=== PATIENT | male | born 1965 | race Caucasian/White ===

== ENCOUNTER 2018-06-12 16:15 | Emergency (ER) | payer OTHER ==
[~2018-06-12] VITALS: Ht 175.3 cm; Wt 90.7 kg
[~2018-06-12 16:15] MED LIST: Aspirin EC81 MG PO; CARV25 PO; CITA20 PO; CYCL10 PO; DILT120ERA PO; DILT240 PO; HYDACE10B PO; HYDCHL12.5 PO; INSULANPEN SC; Keflex500 MG PO; METF500C PO; Norco 5-325 Ta1 EACH PO; PIOG45 PO; SIMV40 PO; TELM40 PO
[2018-06-12 17:11] LABS: BASOPHILS ABSOLUTE AUTO 0.06 K/mm3 (0.00-0.23); BASOPHILS PERCENT AUTO 1 % (0-2); EOSINOPHILS ABSOLUTE AUTO 3.69 K/mm3 (0.00-0.68); EOSINOPHILS PERCENT AUTO 35 % (0-6); Hematocrit 35.1 % (37.0-53.0); Hemoglobin 10.9 g/dL (13.5-17.5); IMMATURE GRAN ABSOLUTE AUTO 0.02 K/mm3 (0.00-0.10); IMMATURE GRAN PERCENT AUTO 0 % (0-1); LYMPHOCYTES ABSOLUTE AUTO 1.43 K/mm3 (0.84-5.20); LYMPHOCYTES PERCENT AUTO 14 % (21-46); MONOCYTES ABSOLUTE AUTO 0.34 K/mm3 (0.16-1.47); MONOCYTES PERCENT AUTO 3 % (4-13); Mean Corpuscular HGB 28.5 pg (26.0-34.0); Mean Corpuscular HGB Conc 31.1 g/dL (31.5-36.5); Mean Corpuscular Volume 92 fL (80-100); Mean Platelet Volume 10.1 fL (9.1-12.4); NEUTROPHILS ABSOLUTE AUTO 4.96 K/mm3 (1.96-9.15); NEUTROPHILS PERCENT AUTO 47 % (41-73); Platelet Count 200 K/mm3 (150-400); RDW Coefficient Variation 13.9 % (11.7-14.2); Red Blood Cell Count 3.83 M/mm3 (4.30-5.90)
[2018-06-12 17:13] LABS: Alanine Aminotransfer (ALT/SGP 15 U/L (12-78); Albumin, Blood 2.9 g/dL (3.4-5.0); Albumin/Globulin Ratio 0.6 (0.8-1.8); Alk Phos 134 U/L (50-136); Anion Gap 6 mmol/L (6-16); Aspartate Aminotrans (AST/SGOT 14 U/L (12-37); Bilirubin, Total 0.2 mg/dL (0.1-1.0); Blood Urea Nitrogen 24 mg/dL (8-24); CO2, Blood 23 mmol/L (21-32); Calcium, Blood 8.5 mg/dL (8.5-10.1); Chloride, Blood 113 mmol/L (98-108); Creatinine, Blood 1.26 mg/dL (0.60-1.20); Globulin, Blood 4.6 g/dL (2.2-4.0); Glomerular Filtration Rate >60 (60-); Glucose, Blood 172 mg/dL (70-99); Potassium, Blood 4.3 mmol/L (3.5-5.5); Sodium, Blood 142 mmol/L (136-145); Total Protein, Blood 7.5 g/dL (6.4-8.2)
[2018-06-12] MEDS ORDERED: FERSU90EL PO (18:57)
[2018-06-12] MEDS ORDERED: ESCI10 PO (18:58)
[2018-06-12] MEDS ORDERED: ASPI325 PO (18:58)
[2018-06-12] MEDS ORDERED: LISI5 PO (18:59)
[2018-06-12] MEDS ORDERED: GLIM2 PO (19:00)
[2018-06-12] MEDS ORDERED: PROP10 PO (19:01)
== END 2018-06-12 21:25 | disposition home or self-care (01) ==
LOC: ER 16:15
PROVIDERS: Physician Assistant
DX: E86.0 Dehydration (principal); R19.7 Diarrhea, unspecified; Z88.6 Allergy status to analgesic agent; Z79.899 Other long term (current) drug therapy; Z79.4 Long term (current) use of insulin; Z79.82 Long term (current) use of aspirin; E11.9 Type 2 diabetes mellitus without complications; I10 Essential (primary) hypertension; E78.5 Hyperlipidemia, unspecified; Z85.3 Personal history of malignant neoplasm of breast
CPT/HCPCS: 80053; 85025; 96360; 99284-25; J7030

== ENCOUNTER 2018-07-17 12:30 | Day surgery (SDC) | payer OTHER ==
[~2018-07-17 12:30] MED LIST changes: +ASPI325 PO; +ESCI10 PO; +FERSU90EL PO; +GLIM2 PO; +LISI5 PO; +PROP10 PO
[2018-08-05] MEDS ORDERED: DILT120 PO (12:16)
[2018-08-05] MEDS ORDERED: PROBIOTIC1 EAC1 PO (12:17)
[2018-08-05] MEDS ORDERED: LISI5 PO (12:17)
[2018-08-05] MEDS ORDERED: Inderal 20 mg T20 MG PO (12:17)
[2018-08-05] MEDS ORDERED: Amaryl1 MG PO (12:18)
[2018-08-05] MEDS ORDERED: CENTRUM SILVER1 EAC4 PO (12:18)
[2018-08-05] MEDS ORDERED: ESCI10 PO (12:18)
[2018-08-05] MEDS ORDERED: Aspir 8181 MG PO (12:18)
[2018-08-05] MEDS ORDERED: METF500C PO (12:18)
== END 2018-07-17 22:51 | disposition home or self-care (01) ==
LOC: WOUND 12:30
DX: L97.812 Non-pressure chronic ulcer of other part of right lower leg with fat layer exposed (principal); L97.818 Non-pressure chronic ulcer of other part of right lower leg with other specified severity; L97.521 Non-pressure chronic ulcer of other part of left foot limited to breakdown of skin; E11.319 Type 2 diabetes mellitus with unspecified diabetic retinopathy without macular edema; I10 Essential (primary) hypertension; Z89.422 Acquired absence of other left toe(s); Z88.6 Allergy status to analgesic agent; Z79.84 Long term (current) use of oral hypoglycemic drugs

== ENCOUNTER 2018-07-25 10:30 | Day surgery (SDC) | payer OTHER ==
[2018-08-05] MEDS ORDERED: DILT120 PO (12:16)
[2018-08-05] MEDS ORDERED: Inderal 20 mg T20 MG PO (12:17)
[2018-08-05] MEDS ORDERED: LISI5 PO (12:17)
[2018-08-05] MEDS ORDERED: PROBIOTIC1 EAC1 PO (12:17)
[2018-08-05] MEDS ORDERED: Amaryl1 MG PO (12:18)
[2018-08-05] MEDS ORDERED: ESCI10 PO (12:18)
[2018-08-05] MEDS ORDERED: CENTRUM SILVER1 EAC4 PO (12:18)
[2018-08-05] MEDS ORDERED: Aspir 8181 MG PO (12:18)
[2018-08-05] MEDS ORDERED: METF500C PO (12:18)
== END 2018-07-25 23:03 | disposition home or self-care (01) ==
LOC: WOUND 10:30
DX: E11.621 Type 2 diabetes mellitus with foot ulcer (principal); E11.622 Type 2 diabetes mellitus with other skin ulcer; L97.521 Non-pressure chronic ulcer of other part of left foot limited to breakdown of skin; L97.818 Non-pressure chronic ulcer of other part of right lower leg with other specified severity; L97.811 Non-pressure chronic ulcer of other part of right lower leg limited to breakdown of skin; L84 Corns and callosities; E11.21 Type 2 diabetes mellitus with diabetic nephropathy; E11.319 Type 2 diabetes mellitus with unspecified diabetic retinopathy without macular edema; I10 Essential (primary) hypertension; Z89.422 Acquired absence of other left toe(s)
CPT/HCPCS: G0463

== ENCOUNTER 2018-08-01 00:33 | Day surgery (SDC) | payer OTHER ==
[2018-08-05] MEDS ORDERED: DILT120 PO (12:16)
[2018-08-05] MEDS ORDERED: LISI5 PO (12:17)
[2018-08-05] MEDS ORDERED: Inderal 20 mg T20 MG PO (12:17)
[2018-08-05] MEDS ORDERED: PROBIOTIC1 EAC1 PO (12:17)
[2018-08-05] MEDS ORDERED: Amaryl1 MG PO (12:18)
[2018-08-05] MEDS ORDERED: Aspir 8181 MG PO (12:18)
[2018-08-05] MEDS ORDERED: CENTRUM SILVER1 EAC4 PO (12:18)
[2018-08-05] MEDS ORDERED: ESCI10 PO (12:18)
[2018-08-05] MEDS ORDERED: METF500C PO (12:18)
== END 2018-08-01 22:46 | disposition home or self-care (01) ==
LOC: WOUND 00:33
DX: L97.811 Non-pressure chronic ulcer of other part of right lower leg limited to breakdown of skin (principal); L97.521 Non-pressure chronic ulcer of other part of left foot limited to breakdown of skin; L97.818 Non-pressure chronic ulcer of other part of right lower leg with other specified severity; E11.21 Type 2 diabetes mellitus with diabetic nephropathy; Z79.84 Long term (current) use of oral hypoglycemic drugs

== ENCOUNTER → 2018-08-02 | Outpatient (CLI) | payer OTHER ==
[~2018-08-02] MED LIST changes: +Amaryl1 MG PO; +Aspir 8181 MG PO; +CENTRUM SILVER1 EAC4 PO; +DILT120 PO; +Inderal 20 mg T20 MG PO; +PROBIOTIC1 EAC1 PO
== END | disposition home or self-care (01) ==
LOC: PLD 11:05 → LAB SHORT 11:05
DX: L60.2 Onychogryphosis (principal); B35.1 Tinea unguium
CPT/HCPCS: 88305; 88312

== ENCOUNTER 2018-08-07 07:59 | Day surgery (SDC) | payer OTHER | END 2018-08-07 22:45 | disposition home or self-care (01) | LOC: WOUND 07:59 | DX: L97.812 Non-pressure chronic ulcer of other part of right lower leg with fat layer exposed (principal); E11.21 Type 2 diabetes mellitus with diabetic nephropathy; I10 Essential (primary) hypertension; Z89.422 Acquired absence of other left toe(s); Z79.84 Long term (current) use of oral hypoglycemic drugs ==

== ENCOUNTER 2018-08-16 11:05 | Day surgery (SDC) | payer OTHER | END 2018-08-16 12:00 | disposition home or self-care (01) | LOC: WOUND 11:05 | DX: L97.818 Non-pressure chronic ulcer of other part of right lower leg with other specified severity (principal); E11.21 Type 2 diabetes mellitus with diabetic nephropathy; D50.9 Iron deficiency anemia, unspecified; F41.8 Other specified anxiety disorders; I10 Essential (primary) hypertension; Z89.422 Acquired absence of other left toe(s); Z79.82 Long term (current) use of aspirin; Z79.84 Long term (current) use of oral hypoglycemic drugs | CPT/HCPCS: G0463 ==

== ENCOUNTER 2018-09-06 00:14 | Day surgery (SDC) | payer OTHER | END 2018-09-06 12:00 | disposition home or self-care (01) | LOC: WOUND 00:14 | DX: E11.622 Type 2 diabetes mellitus with other skin ulcer (principal); L97.812 Non-pressure chronic ulcer of other part of right lower leg with fat layer exposed; E11.319 Type 2 diabetes mellitus with unspecified diabetic retinopathy without macular edema; E11.21 Type 2 diabetes mellitus with diabetic nephropathy; I73.9 Peripheral vascular disease, unspecified; I10 Essential (primary) hypertension; D50.9 Iron deficiency anemia, unspecified; F32.9 Major depressive disorder, single episode, unspecified; F41.9 Anxiety disorder, unspecified | CPT/HCPCS: G0463 ==

== ENCOUNTER 2018-10-16 10:49 | Day surgery (SDC) | payer OTHER | END 2018-10-16 22:44 | disposition home or self-care (01) | LOC: WOUND 10:49 | DX: E11.622 Type 2 diabetes mellitus with other skin ulcer (principal); L97.818 Non-pressure chronic ulcer of other part of right lower leg with other specified severity; E11.21 Type 2 diabetes mellitus with diabetic nephropathy; E11.51 Type 2 diabetes mellitus with diabetic peripheral angiopathy without gangrene; I10 Essential (primary) hypertension; D50.9 Iron deficiency anemia, unspecified; F32.9 Major depressive disorder, single episode, unspecified; F41.9 Anxiety disorder, unspecified | CPT/HCPCS: G0463 ==

== ENCOUNTER 2018-10-25 00:36 | Observation (INO) | payer OTHER ==
[~2018-10-25] VITALS: Ht 175.3 cm; Wt 95.2 kg
[2018-10-25] MEDS ORDERED: ZOLP5 (00:54)
[2018-10-25] MEDS ORDERED: Lexapro 2020 MG PO (05:19)
== END 2018-10-25 05:42 | disposition home or self-care (01) ==
LOC: ER 00:36 → EOR 00:37
PROVIDERS: ADMIT Emergency Medicine
DX: F32.9 Major depressive disorder, single episode, unspecified (principal); F43.21 Adjustment disorder with depressed mood; E11.9 Type 2 diabetes mellitus without complications; I10 Essential (primary) hypertension; E78.00 Pure hypercholesterolemia, unspecified; F41.9 Anxiety disorder, unspecified; Z88.6 Allergy status to analgesic agent; Z79.899 Other long term (current) drug therapy; Z79.84 Long term (current) use of oral hypoglycemic drugs; Z79.82 Long term (current) use of aspirin
CPT/HCPCS: 99285; G0378; Q3014

== ENCOUNTER 2018-12-03 11:10 | Emergency (ER) | payer OTHER ==
[~2018-12-03] VITALS: Ht 175.3 cm; Wt 113.4 kg
[~2018-12-03 11:10] MED LIST changes: -DILT120 PO; +Diltiazem HCl120 MG PO; +Lexapro 2020 MG PO; +ZOLP5
[2018-12-03] MEDS ORDERED: METF500C PO (11:37)
[2018-12-03 12:31] LABS: BASOPHILS ABSOLUTE AUTO 0.04 K/mm3 (0.00-0.23); BASOPHILS PERCENT AUTO 1 % (0-2); EOSINOPHILS ABSOLUTE AUTO 1.24 K/mm3 (0.00-0.68); EOSINOPHILS PERCENT AUTO 17 % (0-6); Hematocrit 31.5 % (37.0-53.0); Hemoglobin 9.6 g/dL (13.5-17.5); IMMATURE GRAN ABSOLUTE AUTO 0.05 K/mm3 (0.00-0.10); IMMATURE GRAN PERCENT AUTO 1 % (0-1); LYMPHOCYTES ABSOLUTE AUTO 0.73 K/mm3 (0.84-5.20); LYMPHOCYTES PERCENT AUTO 10 % (21-46); MONOCYTES PERCENT AUTO 5 % (4-13); Mean Corpuscular HGB 28.6 pg (26.0-34.0); Mean Corpuscular HGB Conc 30.5 g/dL (31.5-36.5); Mean Corpuscular Volume 94 fL (80-100); Mean Platelet Volume 10.2 fL (9.1-12.4); NEUTROPHILS ABSOLUTE AUTO 5.03 K/mm3 (1.96-9.15); NEUTROPHILS PERCENT AUTO 67 % (41-73); Platelet Count 164 K/mm3 (150-400); RDW Coefficient Variation 13.8 % (11.7-14.2); Red Blood Cell Count 3.36 M/mm3 (4.30-5.90); White Blood Cell Count 7.49 K/mm3 (4.00-11.30)
[2018-12-03 12:56] LABS: Alanine Aminotransfer (ALT/SGP 15 U/L (12-78); Albumin, Blood 2.5 g/dL (3.4-5.0); Albumin/Globulin Ratio 0.6 (0.8-1.8); Alk Phos 117 U/L (50-136); Anion Gap 5 mmol/L (6-16); Aspartate Aminotrans (AST/SGOT 13 U/L (12-37); Bilirubin, Total 0.3 mg/dL (0.1-1.0); Blood Urea Nitrogen 15 mg/dL (8-24); Bun/Creatinine Ratio 11.5 (12.0-20.0); CO2, Blood 28 mmol/L (21-32); Chloride, Blood 112 mmol/L (98-108); Creatinine, Blood 1.31 mg/dL (0.60-1.20); Glomerular Filtration Rate >60 (60-); Glucose, Blood 92 mg/dL (70-99); Potassium, Blood 3.7 mmol/L (3.5-5.5); Sodium, Blood 145 mmol/L (136-145); Total Protein, Blood 6.5 g/dL (6.4-8.2); Troponin I <0.015 ng/mL (0.000-0.040)
[2019-03-07] MEDS ORDERED: OMEPRAZOLE20 MG PO (17:23)
[2019-03-07] MEDS ORDERED: ZOLP10 PO (17:24)
== END 2018-12-03 14:26 | disposition home or self-care (01) ==
LOC: ER 11:10
PROVIDERS: Emergency Medicine
DX: R60.0 Localized edema (principal); E11.9 Type 2 diabetes mellitus without complications; I10 Essential (primary) hypertension; E78.00 Pure hypercholesterolemia, unspecified; F32.9 Major depressive disorder, single episode, unspecified; F41.9 Anxiety disorder, unspecified; Z85.3 Personal history of malignant neoplasm of breast; Z88.6 Allergy status to analgesic agent; Z79.82 Long term (current) use of aspirin; Z79.84 Long term (current) use of oral hypoglycemic drugs; Z79.899 Other long term (current) drug therapy
CPT/HCPCS: 36415; 71046; 80053; 83880; 84484; 85025; 96374; 99284-25

== ENCOUNTER 2018-12-05 11:14 | Emergency (ER) | payer OTHER ==
[~2018-12-05] VITALS: Ht 177.8 cm; Wt 108.9 kg
[2018-12-05 12:01] LABS: BASOPHILS ABSOLUTE AUTO 0.04 K/mm3 (0.00-0.23); BASOPHILS PERCENT AUTO 0 % (0-2); EOSINOPHILS ABSOLUTE AUTO 0.26 K/mm3 (0.00-0.68); EOSINOPHILS PERCENT AUTO 2 % (0-6); Hematocrit 32.7 % (37.0-53.0); IMMATURE GRAN PERCENT AUTO 1 % (0-1); LYMPHOCYTES PERCENT AUTO 5 % (21-46); MONOCYTES ABSOLUTE AUTO 0.64 K/mm3 (0.16-1.47); MONOCYTES PERCENT AUTO 5 % (4-13); Mean Corpuscular HGB 28.6 pg (26.0-34.0); Mean Corpuscular HGB Conc 30.6 g/dL (31.5-36.5); Mean Corpuscular Volume 93 fL (80-100); Mean Platelet Volume 11.1 fL (9.1-12.4); NEUTROPHILS ABSOLUTE AUTO 11.31 K/mm3 (1.96-9.15); NEUTROPHILS PERCENT AUTO 87 % (41-73); Platelet Count 149 K/mm3 (150-400); RDW Coefficient Variation 13.8 % (11.7-14.2); RDW Standard Deviation 46.5 fL (35.1-46.3); White Blood Cell Count 13.05 K/mm3 (4.00-11.30)
[2018-12-05 12:21] LABS: Alanine Aminotransfer (ALT/SGP 14 U/L (12-78); Albumin, Blood 2.6 g/dL (3.4-5.0); Albumin/Globulin Ratio 0.5 (0.8-1.8); Alk Phos 126 U/L (50-136); Anion Gap 6 mmol/L (6-16); Aspartate Aminotrans (AST/SGOT 10 U/L (12-37); Bilirubin, Total 0.9 mg/dL (0.1-1.0); Blood Urea Nitrogen 16 mg/dL (8-24); Bun/Creatinine Ratio 12.8 (12.0-20.0); CO2, Blood 29 mmol/L (21-32); Calcium, Blood 8.4 mg/dL (8.5-10.1); Chloride, Blood 104 mmol/L (98-108); Creatinine, Blood 1.25 mg/dL (0.60-1.20); Globulin, Blood 4.8 g/dL (2.2-4.0); Glomerular Filtration Rate >60 (60-); Glucose, Blood 158 mg/dL (70-99); Potassium, Blood 3.8 mmol/L (3.5-5.5); Sodium, Blood 139 mmol/L (136-145); Total Protein, Blood 7.4 g/dL (6.4-8.2)
[2018-12-05 13:42] LABS: Source, Urine Voided
[2018-12-05 13:45] LABS: Appearance, Urine Clear (Clear); Bilirubin, Urine Neg (Neg); Blood, Urine 4+ (Neg); Color, Urine Yellow (P-Yellow); Glucose Qualitative, Urine 1+ (Neg); Ketones, Urine 1+ (Neg); Leukocyte Esterase, Urine Neg (Neg); Nitrite, Urine Neg (Neg); Protein, Urine 3+ (Neg); Urobilinogen, Urine 1+ (Normal); pH, Urine 6.5 (5.0-8.0)
[2018-12-05 14:05] LABS: Bacteria Not Seen /hpf; Squamous Epithelial Cells Not Seen /hpf (Few); White Blood Cells, Urine 0-2 /hpf (0-5)
[2019-03-07] MEDS ORDERED: OMEPRAZOLE20 MG PO (17:23)
[2019-03-07] MEDS ORDERED: ZOLP10 PO (17:24)
== END 2018-12-05 16:52 | disposition home or self-care (01) ==
LOC: ER 11:14
PROVIDERS: Emergency Medicine
DX: R53.1 Weakness (principal); E11.9 Type 2 diabetes mellitus without complications; I10 Essential (primary) hypertension; F41.9 Anxiety disorder, unspecified; F32.9 Major depressive disorder, single episode, unspecified; Z88.6 Allergy status to analgesic agent; Z79.84 Long term (current) use of oral hypoglycemic drugs; Z79.82 Long term (current) use of aspirin; Z79.899 Other long term (current) drug therapy
CPT/HCPCS: 36415; 71046; 71260; 80053; 81001; 84484; 85025; 85379; 93005; 93010; 96360-59; 96361; 99285-25; J7030; Q9967

== ENCOUNTER 2019-02-03 04:42 | Emergency (ER) | payer OTHER ==
[~2019-02-03] VITALS: Ht 177.8 cm; Wt 108.9 kg
[2019-02-03 05:19] LABS: BASOPHILS ABSOLUTE AUTO 0.03 K/mm3 (0.00-0.23); BASOPHILS PERCENT AUTO 0 % (0-2); EOSINOPHILS ABSOLUTE AUTO 1.34 K/mm3 (0.00-0.68); EOSINOPHILS PERCENT AUTO 17 % (0-6); Hematocrit 31.8 % (37.0-53.0); Hemoglobin 9.8 g/dL (13.5-17.5); IMMATURE GRAN ABSOLUTE AUTO 0.02 K/mm3 (0.00-0.10); IMMATURE GRAN PERCENT AUTO 0 % (0-1); LYMPHOCYTES ABSOLUTE AUTO 1.22 K/mm3 (0.84-5.20); LYMPHOCYTES PERCENT AUTO 15 % (21-46); MONOCYTES ABSOLUTE AUTO 0.45 K/mm3 (0.16-1.47); MONOCYTES PERCENT AUTO 6 % (4-13); Mean Corpuscular HGB 28.2 pg (26.0-34.0); Mean Corpuscular HGB Conc 30.8 g/dL (31.5-36.5); Mean Corpuscular Volume 92 fL (80-100); Mean Platelet Volume 10.4 fL (9.1-12.4); NEUTROPHILS ABSOLUTE AUTO 4.92 K/mm3 (1.96-9.15); NEUTROPHILS PERCENT AUTO 62 % (41-73); Platelet Count 169 K/mm3 (150-400); RDW Coefficient Variation 15.4 % (11.7-14.2); RDW Standard Deviation 51.3 fL (35.1-46.3); Red Blood Cell Count 3.47 M/mm3 (4.30-5.90); White Blood Cell Count 7.98 K/mm3 (4.00-11.30)
[2019-02-03 05:37] LABS: Magnesium, Blood 2.2 mg/dL (1.6-2.4)
[2019-02-03 05:38] LABS: Alanine Aminotransfer (ALT/SGP 14 U/L (12-78); Albumin, Blood 3.1 g/dL (3.4-5.0); Albumin/Globulin Ratio 0.7 (0.8-1.8); Alk Phos 132 U/L (50-136); Anion Gap 7 mmol/L (6-16); Aspartate Aminotrans (AST/SGOT 20 U/L (12-37); Bilirubin, Total 0.3 mg/dL (0.1-1.0); Blood Urea Nitrogen 16 mg/dL (8-24); Bun/Creatinine Ratio 12.7 (12.0-20.0); CO2, Blood 28 mmol/L (21-32); Calcium, Blood 8.6 mg/dL (8.5-10.1); Chloride, Blood 107 mmol/L (98-108); Creatinine, Blood 1.26 mg/dL (0.60-1.20); Globulin, Blood 4.6 g/dL (2.2-4.0); Glomerular Filtration Rate >60 (60-); Glucose, Blood 85 mg/dL (70-99); Potassium, Blood 3.9 mmol/L (3.5-5.5); Sodium, Blood 142 mmol/L (136-145); Total Protein, Blood 7.7 g/dL (6.4-8.2)
[2019-02-03] MEDS ORDERED: Norco 10-325 T1 EACH PO (08:02)
[2019-03-07] MEDS ORDERED: OMEPRAZOLE20 MG PO (17:23)
[2019-03-07] MEDS ORDERED: ZOLP10 PO (17:24)
== END 2019-02-03 08:33 | disposition home or self-care (01) ==
LOC: ER 04:42
PROVIDERS: Emergency Medicine
DX: R60.0 Localized edema (principal); G89.29 Other chronic pain; Z88.6 Allergy status to analgesic agent; Z79.899 Other long term (current) drug therapy; Z79.84 Long term (current) use of oral hypoglycemic drugs; Z79.82 Long term (current) use of aspirin; E11.40 Type 2 diabetes mellitus with diabetic neuropathy, unspecified; I10 Essential (primary) hypertension; Z85.3 Personal history of malignant neoplasm of breast; F32.9 Major depressive disorder, single episode, unspecified; F41.9 Anxiety disorder, unspecified
CPT/HCPCS: 36415; 80053; 83735; 83880; 85025; 85379; 93970; 96374; 99284-25

== ENCOUNTER → 2019-02-05 | Outpatient (CLI) | payer OTHER ==
[~2019-02-05] MED LIST changes: +ATOR40TA PO; +BASAGLAR K100 UNIT/1 SC; +CEFU500T30 PO; +FERSU300 PO; +FUROSEMIDE20 MG PO; +HUMALOG KW200 UNIT/1 SC; +METO50ER PO; +Norco 10-325 T1 EACH PO; +OMEPRAZOLE20 MG PO; +POTA10T PO; +TRIDERM28.4 GM TOP; +ZOLP10 PO
[2019-02-05 14:38] LABS: Bacteria Rare /hpf; Red Blood Cells, Urine 0-2 /hpf (0-2); Renal Epithelial Mod /hpf (0-Rare); Squamous Epithelial Cells Not Seen /hpf (Few); Transitional Epithelial Cells Rare /hpf (0-Rare); White Blood Cells, Urine 0-2 /hpf (0-5)
== END ==
LOC: LAB EV 11:30
PROVIDERS: Physician Assistant
DX: R31.9 Hematuria, unspecified (principal)
CPT/HCPCS: 81015

== ENCOUNTER 2019-03-10 06:53 | Day surgery (SDC) | payer OTHER ==
[~2019-03-10] VITALS: Ht 175.3 cm; Wt 240.0 kg
[~2019-03-10 06:53] MED LIST changes: -ATOR40TA PO; -BASAGLAR K100 UNIT/1 SC; -CEFU500T30 PO; -FERSU300 PO; -FUROSEMIDE20 MG PO; -HUMALOG KW200 UNIT/1 SC; -METO50ER PO; -POTA10T PO; -TRIDERM28.4 GM TOP
== END 2019-03-10 13:30 | disposition home or self-care (01) ==
LOC: MHTC 06:53
DX: I70.248 Atherosclerosis of native arteries of left leg with ulceration of other part of lower leg (principal); L97.829 Non-pressure chronic ulcer of other part of left lower leg with unspecified severity; I70.201 Unspecified atherosclerosis of native arteries of extremities, right leg; Z88.6 Allergy status to analgesic agent; Z79.899 Other long term (current) drug therapy; Z79.82 Long term (current) use of aspirin; Z79.84 Long term (current) use of oral hypoglycemic drugs
CPT/HCPCS: 37228; 37232; 75625; 75716; 75774; 82947; 85347; 99152; 99153; C1725; C1760; C1769; C1887; C1894; J1644; J2250; J3010; J7030; Q9967

== ENCOUNTER 2019-03-31 13:53 | Inpatient (IN) | payer OTHER ==
[~2019-03-31] VITALS: Ht 175.3 cm; Wt 109.0 kg
[2019-03-31 14:24] LABS: Base Excess Venous 3.1 mmol/L; Bicarbonate Venous 26.8 mmol/L (24.0-30.0); PCO2 Venous 45.5 mmHg (38-42); PO2 Venous 82.1 mmHg (38-42)
[2019-03-31] MEDS ORDERED: FUROSEMIDE20 MG PO (14:24)
[2019-03-31 14:50] LABS: BASOPHILS ABSOLUTE AUTO 0.04 K/mm3 (0.00-0.23); BASOPHILS PERCENT AUTO 0 % (0-2); EOSINOPHILS ABSOLUTE AUTO 0.61 K/mm3 (0.00-0.68); EOSINOPHILS PERCENT AUTO 5 % (0-6); Hematocrit 30.7 % (37.0-53.0); Hemoglobin 9.3 g/dL (13.5-17.5); IMMATURE GRAN ABSOLUTE AUTO 0.08 K/mm3 (0.00-0.10); IMMATURE GRAN PERCENT AUTO 1 % (0-1); LYMPHOCYTES ABSOLUTE AUTO 0.58 K/mm3 (0.84-5.20); LYMPHOCYTES PERCENT AUTO 4 % (21-46); MONOCYTES ABSOLUTE AUTO 0.61 K/mm3 (0.16-1.47); MONOCYTES PERCENT AUTO 5 % (4-13); Mean Corpuscular HGB 28.2 pg (26.0-34.0); Mean Corpuscular HGB Conc 30.3 g/dL (31.5-36.5); Mean Corpuscular Volume 93 fL (80-100); Mean Platelet Volume 11.1 fL (9.1-12.4); NEUTROPHILS ABSOLUTE AUTO 11.18 K/mm3 (1.96-9.15); NEUTROPHILS PERCENT AUTO 85 % (41-73); Platelet Count 175 K/mm3 (150-400); RDW Coefficient Variation 14.1 % (11.7-14.2); RDW Standard Deviation 47.7 fL (35.1-46.3)
[2019-03-31 15:02] LABS: Alanine Aminotransfer (ALT/SGP 15 U/L (12-78); Albumin, Blood 2.4 g/dL (3.4-5.0); Albumin/Globulin Ratio 0.5 (0.8-1.8); Alk Phos 120 U/L (50-136); Anion Gap 5 mmol/L (6-16); Aspartate Aminotrans (AST/SGOT 11 U/L (12-37); Bilirubin, Total 0.7 mg/dL (0.1-1.0); Blood Urea Nitrogen 14 mg/dL (8-24); Bun/Creatinine Ratio 10.3 (12.0-20.0); CO2, Blood 27 mmol/L (21-32); Calcium, Blood 8.2 mg/dL (8.5-10.1); Chloride, Blood 104 mmol/L (98-108); Creatinine, Blood 1.36 mg/dL (0.60-1.20); Ethanol (Alcohol), Blood, Med <3 mg/dL; Globulin, Blood 4.8 g/dL (2.2-4.0); Glomerular Filtration Rate 58 (60-); Glucose, Blood 341 mg/dL (70-99); Sodium, Blood 136 mmol/L (136-145); Total Protein, Blood 7.2 g/dL (6.4-8.2); Troponin I 0.115 ng/mL (0.000-0.040)
[2019-03-31] MEDS ORDERED: TRIDERM28.4 GM TOP (16:13)
[2019-03-31] MEDS ORDERED: ESCI10 PO (16:14)
[2019-03-31 17:46] LABS: Source, Urine Voided
[2019-03-31 17:56] LABS: Bilirubin, Urine Neg (Neg); Blood, Urine 2+ (Neg); Glucose Qualitative, Urine 4+ (Neg); Ketones, Urine Neg (Neg); Leukocyte Esterase, Urine Neg (Neg); Nitrite, Urine Neg (Neg); Protein, Urine 2+ (Neg); Urobilinogen, Urine NORM (Normal)
[2019-03-31 18:10] LABS: U Amphetamine Screen Not Detected; U Barbituate Screen Not Detected; U Benzodiazapine Screen Not Detected; U Buprenorphine Screen Not Detected; U Cannabinoids Screen Not Detected; U Cocaine Screen Not Detected; U Methadone Screen Not Detected; U Methamphetamine Screen Not Detected; U Opiates Screen Not Detected; U Oxycodone Screen Not Detected; U Phencyclidine Screen Not Detected; U Propoxyphene Screen Not Detected
[2019-03-31 18:13] LABS: Appearance, Urine Clear (Clear); Color, Urine Yellow (P-Yellow)
[2019-03-31 18:14] LABS: Bacteria Mod /hpf; Red Blood Cells, Urine 0-2 /hpf (0-2); Squamous Epithelial Cells Rare /hpf (Few); White Blood Cells, Urine 0-2 /hpf (0-5)
--- NOTE | 2019-03-31 23:39 | NUR ---
ARRIVAL PT ARRIVED TO UNIT APPROX. 2200 VIA SIM FROM ED. TRANSFERED PT FROM [facility] TO BED. ORIENTED PT TO ROOM, UNIT AND POLICIES. ADMISSION PROCESS COMPLETED. ASSESSMENT COMPLETED. VITAL SIGNS STABLE. PT ON 4L OXYGEN VIA N.C. AT THIS TIME WITH SATS IN HIGH 90'S. WILL CONTINUE TO MONITOR THIS. PT REPORTS THAT EDEMA IN BILAT FEET BEEN GETTING WORSE OVER LAST COUPLE OF WEEKS. PT SKIN PSORASIS AND TOUGH T/O. UNABLE TO FEEL PEDAL PULSES. USED DOPLER AND WAS ABLE TO FIND PULSES IN BOTH FEET. PT REPROTS THAT HE IS SCHEDULED TO HAVE A PROCEDURE DONE WITH DR. HARRY ON HIS LEFT LEG TO HELP IMPROVE CIRCULATION IN THIS LEG. BED IN LOW POSITION, CALL LIGHT IN REACH AND PT DENIES ANY NEEDS WILL CONTINUE TO MONITR.
[2019-04-01 04:41] LABS: BASOPHILS ABSOLUTE AUTO 0.04 K/mm3 (0.00-0.23); BASOPHILS PERCENT AUTO 0 % (0-2); EOSINOPHILS ABSOLUTE AUTO 0.86 K/mm3 (0.00-0.68); EOSINOPHILS PERCENT AUTO 9 % (0-6); Hematocrit 27.4 % (37.0-53.0); Hemoglobin 8.4 g/dL (13.5-17.5); IMMATURE GRAN ABSOLUTE AUTO 0.06 K/mm3 (0.00-0.10); IMMATURE GRAN PERCENT AUTO 1 % (0-1); LYMPHOCYTES ABSOLUTE AUTO 0.99 K/mm3 (0.84-5.20); LYMPHOCYTES PERCENT AUTO 10 % (21-46); MONOCYTES ABSOLUTE AUTO 0.45 K/mm3 (0.16-1.47); MONOCYTES PERCENT AUTO 5 % (4-13); Mean Corpuscular HGB 28.2 pg (26.0-34.0); Mean Corpuscular HGB Conc 30.7 g/dL (31.5-36.5); Mean Corpuscular Volume 92 fL (80-100); NEUTROPHILS PERCENT AUTO 76 % (41-73); Platelet Count 174 K/mm3 (150-400); RDW Coefficient Variation 14.2 % (11.7-14.2); RDW Standard Deviation 47.6 fL (35.1-46.3); Red Blood Cell Count 2.98 M/mm3 (4.30-5.90)
[2019-04-01 04:42] LABS: Albumin, Blood 2.3 g/dL (3.4-5.0); Albumin/Globulin Ratio 0.5 (0.8-1.8); Bilirubin, Total 0.5 mg/dL (0.1-1.0); Bun/Creatinine Ratio 10.6 (12.0-20.0); Creatinine, Blood 1.42 mg/dL (0.60-1.20); Globulin, Blood 4.7 g/dL (2.2-4.0); Potassium, Blood 3.5 mmol/L (3.5-5.5)
--- NOTE | 2019-04-01 08:07 | NUR ---
SHIFT SUMMARY PT PLEASANT, COOPERATIVE AND USES CALL LIGHT APPROPRIATELY. PT REMAINS A&OX4. PT VITAL SIGNS STABLE AND PT ABLE TO GET REST, UNTIL ABOUT 0520. PT WAS ABLE TO REST, BREATHING UNLABORED, WITH R.R. 18 ON 4L N.C. APPROX. 0450 CHECKED ON PT AND PT WAS RESTING QUEITLY. APPROX. 0515 NOTED PT HEART RATE TO BE INCREASING. ENTERED ROOM TO CHECK ON AND ASSESS PT. NOTED PT TO HAVE LABORED BREATHING AND TACHYPNEA. PLACED FINGER PROB TO CHECK OXYGEN SATS. AND NOTED IT TO BE 65%. TURNED PT UP TO 9L OXYGEN N.C. AND COMPLETED REST OF VITAL SIGNS. FOUND ALL VITALS TO BE ELEVATED. OXYGEN SATS STILL NOT GETTING ABOUT 72%. ROOFER APPLICATOR ENTERED ROOM TO ASSIST. CHANGED PT TO OXIMYZER AND TURNED IT UP TO 15L. PT SATS SLOWING PROVED WITH THIS BUT DID NOT GET HIGHER THAN 85%. DURING THIS TIME PT HAD AUDIBLE WHEEZES, HEARD W/O A STETHSCOPE. WITH A STETHESCOPE HAD WHEEZES T/O. ATTEMPTED TO CONTACT PHYSICIAN AND WAS UNABLE TO GET AN ANSWER AFTER THE FIRST ATTEMPT. CALLED AN R.R.T. FOR ADDITIONAL RESOURCES. R.R.T. WAS CALLED. R.T. AT BED SIDE AND PLACED BIPAP. PT SATS BEGAN TO IMPROVE A GREAT AMOUNT WITH THIS. AT THIS POINT PT LUNG SOUNDS COARSE T/O. PROCEEDED TO GIVE PT IV DOSE OF LASIX. NOTED PT BLOOD PRESSURE TO BE HIGH AT 181/113. PT R.R. DECREASED TO 30'S. CALL PHYSICIAN TO NOTIFIY OF R.R.T. AND DECISIONS MADE AND GET AN ORDERS FOR INCREASED B.P. GAVE THIS AND THIS HELPED TO BRING DOWN BLOOD PRESSURE. PT BIPAP REMAINS IN PLACE. OXYGEN SATS 94%. PT LUNG SOUNDS IMPROVING. BED IN LOW POSITION, CALL LIGHT IN REACH AND PT DENIES ANY NEEDS. WILL CONTINUE TO MONITOR UNTIL HANDOFF TO DAYSHIFT RN.
--- NOTE | 2019-04-01 08:24 | NUR ---
NOTE NOTE IN MORNING LABS TROPONIN TO CONTINUE TO INCREASE. NOTIFIED PHYSICIAN OF THIS. RECIEVED ORDERS TO PROVIDED PT WITH 150MG OF APSIRIN CHEWABLE. AND RECHECK LABS LATER IN THE MORNING. WILL CONTINUE TO MONITOR
[2019-04-01 09:41] LABS: RETIC HGB EQUIVALENT 25.5 pg (28.20-36.60); RETICULOCYTE COUNT PERCENT 1.43 % (0.50-2.50)
[2019-04-01 10:03] LABS: Percent Saturation 3.1 % (20.0-50.0)
--- NOTE | 2019-04-01 10:38 | NUR ---
LATE ENTRY [address] POPE, OK TO GIVE MEDCIATIONS THIS AM. GIVE 3 UNITS HUMALOG INSULIN AND KEEP PT NPO FOR ANGIOGRAM. NOTIIFED OF CURRENT TROP LEVELS. CALLED DR GEORGE, NEW ORDERS TO HOLD LOVENOX. 1035 - PT TAKEN TO THERAPEUTIC RECREATION SPECIALIST.
--- NOTE | 2019-04-01 10:44 | NUR ---
echocardiogram completed
[2019-04-01 12:31] LABS: Hematocrit 25.9 % (37.0-53.0)
--- NOTE | 2019-04-01 13:51 | NUR ---
PT TITRATED DOWN TO 4L O2 VIA NC AT 1321, 97% ON 5L O2. THIS RN TO ROOM AT 1345 DUE TO PATIENT COUGHING, O2 84%, TITRATED TO 6L O2 VIA NC PT 88-90%, NOTIFIED RT, BIPAP PLACED 90-94% ON BIPAP, FREEMAN RT AT BEDSIDE. NOTIFIED DR POPE, NEW ORDERS FOR ST SWALLOW EVEAL. WILL CONTINUE TO MONITOR.
--- NOTE | 2019-04-01 17:41 | NUR ---
SHIFT SUMMARY PT A&Ox4, CALM AND COOPERATIVE WITH CARE. PT RESTING IN BED THIS AM, UP IN CHAIR FOR DINNER. PT DENIES PAIN, CHEST PAIN, LIGHTHEADED/DIZZINESS AND NASUEA DURING SHIFT. PT SOB WITH EXERTION, PT "CHOKED" ON WATER THIS AFTERNOON, ST [place]KA ENTERED PER DR POPE, CLARIFIED THAT PATIENT IS OK TO EAT/DRINK LONG HE IS SITING UPRIGHT. PT ON BIPAP THIS AM UNTIL ABOUT 1030 AND FOR APPROX AN HOUR THIS AFTERNOON AND PLACED JAZMINE AT 1753 THIS EVENING. OTHERWISE PT ON 4-5L O2 VIA NC. PT TO HARD METALS HAND ENGRAVER THIS AM, RIGHT RADIAL SITE HAS BEEN RECOVERED PER PROTOCOL AND TR BAN REMOVED AT 1700. NO S/SX OF BLEEIND, HEMATOMA OR BRUISING. SOFT, NONTENDER T/O SHIFT. PULSE PALP ABOVE AND BELOW SITE. OTHER VSS. NO OTHER ACUTE CHANGES NOTED DURING SHIFT. WILL CONTINUE TO MONITOR UNITL REPROT GIVEN TO ONCOMING RN.
--- NOTE | 2019-04-01 17:51 | NUR ---
PT UP IN CHAIR EATING DINNER, O2 SATURATION AT 80-82% ON 4L O2 VIA NC, PT PLACED ON BIPAP. 98-100% ON BIPAP.
[2019-04-02 04:09] LABS: BASOPHILS ABSOLUTE AUTO 0.03 K/mm3 (0.00-0.23); BASOPHILS PERCENT AUTO 0 % (0-2); EOSINOPHILS ABSOLUTE AUTO 1.01 K/mm3 (0.00-0.68); EOSINOPHILS PERCENT AUTO 14 % (0-6); Hematocrit 25.5 % (37.0-53.0); Hemoglobin 7.8 g/dL (13.5-17.5); IMMATURE GRAN ABSOLUTE AUTO 0.02 K/mm3 (0.00-0.10); IMMATURE GRAN PERCENT AUTO 0 % (0-1); LYMPHOCYTES ABSOLUTE AUTO 0.84 K/mm3 (0.84-5.20); LYMPHOCYTES PERCENT AUTO 12 % (21-46); MONOCYTES ABSOLUTE AUTO 0.36 K/mm3 (0.16-1.47); MONOCYTES PERCENT AUTO 5 % (4-13); Mean Corpuscular HGB Conc 30.6 g/dL (31.5-36.5); Mean Corpuscular Volume 91 fL (80-100); Mean Platelet Volume 10.8 fL (9.1-12.4); NEUTROPHILS ABSOLUTE AUTO 4.86 K/mm3 (1.96-9.15); NEUTROPHILS PERCENT AUTO 68 % (41-73); Platelet Count 153 K/mm3 (150-400); RDW Standard Deviation 47.4 fL (35.1-46.3); Red Blood Cell Count 2.79 M/mm3 (4.30-5.90); White Blood Cell Count 7.12 K/mm3 (4.00-11.30)
[2019-04-02 04:24] LABS: Creatinine, Blood 1.5 mg/dL (0.60-1.20); Potassium, Blood 3.5 mmol/L (3.5-5.5)
--- NOTE | 2019-04-02 07:55 | NUR ---
SHIFT SUMMARY ASSUMED CARE OF PT AT 1900, PT AWAKE AND ALERT LYING IN BED. MEDICATED AND TREATED PT PER ORDER AND UNIT PROTOCOL; BP AND RESP'S MILDLY ELEVATED IRREGULARLY T/O SHIFT BUT RELATIVELY STABLE AND MOSTLY W/IN NORMAL LIMITS. NO C/O PAIN, NO C/O TIRED, HOWEVER PT'S BLOOD VALUES TRENDED SLIGHTLY DOWNWARD WITH THE MORNING'S LAB RESULTS. NEW SHIFT NOTIFIED, BED LOCKED AND LOW, PT AWAKE, ALERT W/ NO COMPLAINTS, WATCHING TV CARE AND REPORT PASSED TO ONCOMING SHIFT.
--- NOTE | 2019-04-02 13:55 | NUR ---
Patient is lying in bed and alert. Patient openly shares about a recent painful divorce, how he misses his 7yr old son (because of the divoce) about the many medical issues he is having and about the how many years ago when he was going to [employer]ian[employer] regularly, it was the happiest time in his life. Patient tells me he wants to get back to having his life full. I listen empathically, provide pastoral clinical mental health counselor, normalize patient's experience and provide prayer. Patient responds well and shows signs of restored yvette. I will continue to remain available to patient and family.
[2019-04-02 14:14] LABS: Stool Occult Bld Immuno 1 Negative (NEGATIVE)
--- NOTE | 2019-04-02 18:48 | NUR ---
SHIFT SUMMARY PT A&Ox4, CALM AND COOPERATIVE WITH CARE. PT UP IN CHAIR FOR MEALS. PT DENIES PAIN, CHEST PAIN, LIGHTHEADED/DIZZINESS, SOB AND NAUSEA T/O SHIFT. PT ON 4.5L O2 VIA NC THIS AM, TITRATED TO 3L O2 VIA NC, SPO2 >92%. BIPAP SET UP AT BEDSIDE ON STANDBY. ST EVAL COMPLETED DURING SHIFT. PT STARTED ON PROTONIX THIS AM, DR GRIJALVA CONSULTED AND IN TO SEE PT THIS EVENING. PT RECEIVED 1UNIT PRBC AND 1 UNIT PRBC CURRENTLY TRANSFUSING, PT TOLERATING WELL. ELEVATE BP NOTED, VSS. NO OTHER ACUTE CHANGES NOTED DURING SHIFT. REPORT GIVEN TO ONCOMING RN.
[2019-04-02 22:23] LABS: Hematocrit 36.9 % (37.0-53.0); Hemoglobin 11.4 g/dL (13.5-17.5)
[2019-04-03 06:41] LABS: BASOPHILS ABSOLUTE AUTO 0.05 K/mm3 (0.00-0.23); BASOPHILS PERCENT AUTO 1 % (0-2); EOSINOPHILS ABSOLUTE AUTO 1.88 K/mm3 (0.00-0.68); EOSINOPHILS PERCENT AUTO 21 % (0-6); Hematocrit 33.1 % (37.0-53.0); Hemoglobin 10.3 g/dL (13.5-17.5); IMMATURE GRAN ABSOLUTE AUTO 0.03 K/mm3 (0.00-0.10); IMMATURE GRAN PERCENT AUTO 0 % (0-1); LYMPHOCYTES ABSOLUTE AUTO 0.74 K/mm3 (0.84-5.20); LYMPHOCYTES PERCENT AUTO 8 % (21-46); MONOCYTES ABSOLUTE AUTO 0.42 K/mm3 (0.16-1.47); MONOCYTES PERCENT AUTO 5 % (4-13); Mean Corpuscular HGB 28.6 pg (26.0-34.0); Mean Corpuscular HGB Conc 31.1 g/dL (31.5-36.5); Mean Corpuscular Volume 92 fL (80-100); NEUTROPHILS ABSOLUTE AUTO 5.76 K/mm3 (1.96-9.15); NEUTROPHILS PERCENT AUTO 65 % (41-73); RDW Coefficient Variation 14.9 % (11.7-14.2); RDW Standard Deviation 50.1 fL (35.1-46.3); White Blood Cell Count 8.88 K/mm3 (4.00-11.30)
[2019-04-03 06:56] LABS: Albumin, Blood 2.1 g/dL (3.4-5.0); Albumin/Globulin Ratio 0.4 (0.8-1.8); Bilirubin, Total 0.4 mg/dL (0.1-1.0); Bun/Creatinine Ratio 17.3 (12.0-20.0); Calcium, Blood 8.2 mg/dL (8.5-10.1); Creatinine, Blood 1.33 mg/dL (0.60-1.20); Globulin, Blood 4.7 g/dL (2.2-4.0); Potassium, Blood 3.9 mmol/L (3.5-5.5); Total Protein, Blood 6.8 g/dL (6.4-8.2)
[2019-04-03 07:06] LABS: Mean Platelet Volume 11.7 fL (9.1-12.4); Platelet Count 149 K/mm3 (150-400)
--- NOTE | 2019-04-03 07:50 | NUR ---
ASSUMED CARE PT ALERT AND ORIENTED. VS STABLE. O2 SATS REMAIN ABOVE 90% ON 3L NC. PT REPORTS HE USED THE BIPAP NEEDED THROUGHOUT THE NIGHT. HR NSR. PT DENIES ANY PAIN. PT ABLE TO AMBULATE TO BATHROOM WITH FWW AND SBA. PT SHOWERED THIS AM. PLAN FOR EGD THIS AFTERNOON. WILL CONTINUE TO MONITOR CLOSELY.
[2019-04-03 12:45] LABS: Hematocrit 33.5 % (37.0-53.0); Hemoglobin 10.5 g/dL (13.5-17.5)
--- NOTE | 2019-04-03 14:14 | NUR ---
PT TAKEN TO DAY SURGERY FOR EGD.
--- NOTE | 2019-04-03 14:56 | NUR ---
04/03/19 1456 Terence Lebron 3-LEAD EKG REVIEWED WITH PHYSICIAN PRIOR TO START OF PROCEDURE.PATIENT CONFIRMS NPO STATUS AND AGREES WITH SCHEDULED PROCEDURE.History, Chart, Medications and Allergies reviewed before start of procedure. MONITOR INTACT WITH CONTINUOUS PULSE OXIMETRY AND INTERMITTENT BP. O2 VIA N/C INTACT THROUGHOUT SEDATION/PROCEDURE. Bite Block Placed
--- NOTE | 2019-04-03 15:13 | NUR ---
REPORT GIVEN TO RUTH YEBOAH.
--- NOTE | 2019-04-03 16:32 | NUR ---
ASSUMED CARE: REPORT RECIEVED FROM OBINNA MIRANDA. PT SITTING UPRIGHT IN CHAIR AT THIS TIME. NO ACUTE NEEDS OR DISTRESS NOTED AT THIS TIME.
--- NOTE | 2019-04-03 18:45 | NUR ---
SHIFT SUMMARY: PT SITTING IN CHAIR AT THIS TIME ON RA. FAMILY AT BEDSIDE. DENIES FURTHER NEEDS OR CONCERNS AT THIS TIME.
--- NOTE | 2019-04-03 21:55 | NUR ---
[facility] ASSUMED CARE OF PT APPROX. 1900. PT A&OX4. VITAL SIGNS STABLE. ASSESSMENT COMPLETED. PT ON ROOM AIR AT THIS TIME. LUNG SOUNDS CLEAR IN TOP LOBES AND TIGHT IN LOW LOBES. PT STATES HE FEELS WAY BETTER THAN HE HAS BEEN. PEDAL PULSES REMAIN FAINT, USED DOPLER TO FIND THESE. SKIN OVERALL TOUGH, FLAKY AND PSORIASIS. PT ABLE TO AMBUALTE TO BATHROOM NEEDED WITH PEER STAFF MEMBER. BED IN LOW POSITION, CALL LIGHT IN REACH AND PT DENIES ANY NEEDS. WILL CONTINUE TO MONITOR.
[2019-04-04 03:48] LABS: Hemoglobin 10.7 g/dL (13.5-17.5)
--- NOTE | 2019-04-04 05:20 | NUR ---
SHIFT SUMMARY PT PLEASANT, COOPERATIVE AND USES CALL LIGHT APROPRIATELY. PT REMAINS A&OX4. VITAL SIGNS REMAIN STABLE, ALTHOUGH PT OXYGEN SATS DROPPED INTO 80'S WHILE ASLEEP. TURNED PT OXYGEN BACK ON AND UP TO 4L TO MAINTAIN SATS GREATER THAN 93%. PT REMAINS ON 4L AT THIS TIME. PT ABLE TO AMBULATE IN ROOM NEEDED TO USE RESTROOM. NO S/SX OF ACUTE DISTRESS. PT IN BED RESTING. BED IN LOW POSITION, CALL LIGHT IN REACH AND PT DENIES ANY NEEDS AT THIS TIME. WILL CONTINUE TO MONITOR UNTIL HANDOFF TO DAYSHIFT RN
--- NOTE | 2019-04-04 19:23 | NUR ---
SHIFT SUMMARY PT ALERT AND ORIENTED. VS STABLE. 02 SATS HAVE REMAIN ABOVE 90% ON RA. PT DENIES ANY PAIN. PT ABLE TO WALK WITH SBA AND FWW TO BATHROOM. PT HAVING LOOSE STOOL THIS SHIFT AND STOOL SOFTENERS HAVE BEEN HELD. PT TO HABE SLEEP STUDY THIS EVENING AND THEN POSSIBLE DC IN THE AM. REPORT GIVEN TO FLASK PUSHER RN.
--- NOTE | 2019-04-04 21:33 | NUR ---
ASSUMED CARE APPROXIMATELY 1900; PT ALERT AND SITTING UP IN RECLINER; PT ON PHONE; PT DENIES PAIN; DENIES CHEST PAIN; ANXIOUS FOR DISCHARGE; PT ON RA O2 SATS >90%; CALL LIGHT IN REACH; WILL CONTINUE TO MONITOR.
--- NOTE | 2019-04-05 03:03 | NUR ---
-Sleep oximetry study aborted due to PT still not being able to sleep at all. -PT unable to fall asleep for minimum amount of hours required for sleep study. -RN aware.
--- NOTE | 2019-04-05 06:42 | NUR ---
UPDATE PT HAD SEVERAL INCONTINENT BM'S IN THE NIGHT; PROVIDER NOTIFIED, NEW ORDER FOR IMODIUM GIVEN; PT C/O ABDOMINAL PAIN; UP TO BATHROOM W/ LOOSE STOOL; PT TOOK SHOWER FOR COMFORT AND CLEANLINESS; WILL CONTINUE TO MONITOR
--- NOTE | 2019-04-05 09:16 | NUR ---
PCU DAYSHIFT ASSUMED CARE OF PT APPROX. 0900. PT A&OX4. VITAL SIGNS STABLE. ASSESSMENT COMPLETED. PT LUNG SOUNDS TIGHT IN LOW LOBES AND CLEAR IN TOP LOBES. PT REPORTS NOT GETTING MUCH SLEEP LAST NIGHT BUT OTHER HENDERSON FEELS GOOD THIS MORNING. PT PEDAL PULSES REMAIN FAIT AND ABLE TO BE FOUND WITH DOPPLER. PHYSICIAN IN TO SEE PT THIS MORNING AND REPORTS HE WILL BE SENDING PT HOME TODAY. PLAN IS TO DO A SLEEP STUDY AN OUTPATIENT. WILL AWAIT DISCHARGE ORDERS. BED IN LOW POSITION, CALL LIGHT IN REACH AND PT DENIES ANY NEEDS. WILL CONTINUE TO MONITOR.
[2019-04-05] MEDS ORDERED: ATOR40TA PO (12:25)
[2019-04-05] MEDS ORDERED: FERSU300 PO (12:25)
[2019-04-05] MEDS ORDERED: METO50ER PO (12:26)
[2019-04-05] MEDS ORDERED: BASAGLAR K100 UNIT/1 SC (12:27)
[2019-04-05] MEDS ORDERED: CEFU500T30 PO (12:27)
[2019-04-05] MEDS ORDERED: HUMALOG KW200 UNIT/1 SC (12:28)
[2019-04-05] MEDS ORDERED: POTA10T PO (12:29)
--- NOTE | 2019-04-05 13:35 | NUR ---
DISCHARGE RECIVED DISCHARGE ORDERS. COMPLETED DISCHARGE PROCESS. MEDICATIONS FAXED TO PHARMACY. REVIEWED DISCHARGE INFORMATION WITH PT. ANSWERED QUESTIONS. PT ESCORTED BY PEER STAFF MEMBER TO [employer]
== END 2019-04-05 13:38 | disposition home or self-care (01) | DRG 280 ==
LOC: ER 13:53 → ERHOLD 17:02 → PCU 17:02
PROVIDERS: Emergency Medicine; Internal Medicine Gastroenterology; ADMIT Internal Medicine
PROC: 0DB68ZX Excision of Stomach, Via Natural or Artificial Opening Endoscopic, Diagnostic (ICD-10-PCS; 2019-04-03)
PROC: 30233N1 Transfusion of Nonautologous Red Blood Cells into Peripheral Vein, Percutaneous Approach (ICD-10-PCS; principal; 2019-04-03 14:15)
PROC: 0W3P8ZZ Control Bleeding in Gastrointestinal Tract, Via Natural or Artificial Opening Endoscopic (ICD-10-PCS; 2019-04-03 14:15)
DX: I21.4 Non-ST elevation (NSTEMI) myocardial infarction (principal); J96.01 Acute respiratory failure with hypoxia; I50.31 Acute diastolic (congestive) heart failure; K31.811 Angiodysplasia of stomach and duodenum with bleeding; K25.4 Chronic or unspecified gastric ulcer with hemorrhage; J18.9 Pneumonia, unspecified organism; Z89.422 Acquired absence of other left toe(s); Z85.3 Personal history of malignant neoplasm of breast; Z90.13 Acquired absence of bilateral breasts and nipples; E66.9 Obesity, unspecified; Z68.35 Body mass index [BMI] 35.0-35.9, adult; Z79.82 Long term (current) use of aspirin; E11.51 Type 2 diabetes mellitus with diabetic peripheral angiopathy without gangrene; I25.10 Atherosclerotic heart disease of native coronary artery without angina pectoris; E11.319 Type 2 diabetes mellitus with unspecified diabetic retinopathy without macular edema; D50.9 Iron deficiency anemia, unspecified; K44.9 Diaphragmatic hernia without obstruction or gangrene; K21.0 Gastro-esophageal reflux disease with esophagitis; N18.3 Chronic kidney disease, stage 3 (moderate); E11.42 Type 2 diabetes mellitus with diabetic polyneuropathy; E11.22 Type 2 diabetes mellitus with diabetic chronic kidney disease; Z79.4 Long term (current) use of insulin; I12.9 Hypertensive chronic kidney disease with stage 1 through stage 4 chronic kidney disease, or unspecified chronic kidney disease
CPT/HCPCS: 31500; 31720; 36415; 36430; 71045; 71046; 71260; 80048; 80053; 81001; 82274; 82607; 82728; 82746; 82803; 82947; 83540; 83550; 83880; 84443; 84484; 85014; 85018; 85025; 85045; 85379; 86850; 86900; 86901; 86923; 88305; 88342; 90471; 90686; 90714; 92610; 93005; 93010; 93308; 93321; 93454; 94002; 94640; 94644; 94660; 94762; 96365; 96375-59; 97116; 97162; 97530; 99152; 99285-25; C1769; C1894; C9113; G0480; J0456; J0696; J1644; J1650; J1940; J2250; J2405; J2704; J3010; J7030; J7050; J7120; P9016; Q9967

== ENCOUNTER 2019-04-11 04:12 | Inpatient (IN) | payer OTHER ==
[~2019-04-11] VITALS: Ht 175.3 cm; Wt 115.7 kg
[~2019-04-11 04:12] MED LIST changes: +ATOR40TA PO; +BASAGLAR K100 UNIT/1 SC; +CEFU500T30 PO; +FERSU300 PO; +FURO40 PO; +HUMALOG KW200 UNIT/1 SC; +K-Dur 20 meq T20 MEQ PO; +METO50ER PO; +TRIDERM28.4 GM TOP
[2019-04-11 04:36] LABS: BASOPHILS ABSOLUTE AUTO 0.05 K/mm3 (0.00-0.23); BASOPHILS PERCENT AUTO 1 % (0-2); EOSINOPHILS ABSOLUTE AUTO 1.89 K/mm3 (0.00-0.68); EOSINOPHILS PERCENT AUTO 20 % (0-6); Hematocrit 33.9 % (37.0-53.0); Hemoglobin 10.5 g/dL (13.5-17.5); IMMATURE GRAN ABSOLUTE AUTO 0.03 K/mm3 (0.00-0.10); IMMATURE GRAN PERCENT AUTO 0 % (0-1); LYMPHOCYTES ABSOLUTE AUTO 0.76 K/mm3 (0.84-5.20); LYMPHOCYTES PERCENT AUTO 8 % (21-46); MONOCYTES ABSOLUTE AUTO 0.35 K/mm3 (0.16-1.47); MONOCYTES PERCENT AUTO 4 % (4-13); Mean Corpuscular HGB 28.6 pg (26.0-34.0); Mean Corpuscular Volume 92 fL (80-100); Mean Platelet Volume 10.6 fL (9.1-12.4); NEUTROPHILS ABSOLUTE AUTO 6.18 K/mm3 (1.96-9.15); NEUTROPHILS PERCENT AUTO 67 % (41-73); Platelet Count 240 K/mm3 (150-400); RDW Coefficient Variation 13.7 % (11.7-14.2); RDW Standard Deviation 46.4 fL (35.1-46.3); Red Blood Cell Count 3.67 M/mm3 (4.30-5.90); White Blood Cell Count 9.26 K/mm3 (4.00-11.30)
[2019-04-11 04:47] LABS: Alanine Aminotransfer (ALT/SGP 30 U/L (12-78); Albumin, Blood 2.7 g/dL (3.4-5.0); Albumin/Globulin Ratio 0.6 (0.8-1.8); Alk Phos 142 U/L (50-136); Anion Gap 4 mmol/L (6-16); Aspartate Aminotrans (AST/SGOT 36 U/L (12-37); Bilirubin, Total 0.2 mg/dL (0.1-1.0); Blood Urea Nitrogen 13 mg/dL (8-24); Bun/Creatinine Ratio 10.5 (12.0-20.0); CO2, Blood 28 mmol/L (21-32); Calcium, Blood 8.2 mg/dL (8.5-10.1); Chloride, Blood 109 mmol/L (98-108); Creatinine, Blood 1.24 mg/dL (0.60-1.20); Globulin, Blood 4.6 g/dL (2.2-4.0); Glomerular Filtration Rate >60 (60-); Glucose, Blood 312 mg/dL (70-99); Potassium, Blood 4.1 mmol/L (3.5-5.5); Sodium, Blood 141 mmol/L (136-145); Total Protein, Blood 7.3 g/dL (6.4-8.2)
[2019-04-11 07:35] LABS: International Normalized Ratio 1.08; Prothrombin Time Results 11.4 Sec (9.7-11.5)
[2019-04-11 15:28] LABS: Source, Urine Clean Catch
[2019-04-11 15:33] LABS: Bilirubin, Urine Neg (Neg); Blood, Urine 5+ (Neg); Glucose Qualitative, Urine 3+ (Neg); Ketones, Urine Neg (Neg); Leukocyte Esterase, Urine 1+ (Neg); Nitrite, Urine Neg (Neg); Protein, Urine 3+ (Neg); Urobilinogen, Urine NORM (Normal)
[2019-04-11 15:40] LABS: Appearance, Urine Clear (Clear); Color, Urine Yellow (P-Yellow)
[2019-04-11 15:41] LABS: Red Blood Cells, Urine TNTC /hpf (0-2); Uric Acid Crystals Mod /hpf
[2019-04-11 15:42] LABS: Bacteria Few /hpf; Squamous Epithelial Cells Not Seen /hpf (Few); White Blood Cells, Urine 0-2 /hpf (0-5)
--- NOTE | 2019-04-11 18:19 | NUR ---
SHIFT SUMMARY 09 RECEIVED PT TO 337 VIA GURKAYLI FROM ER. PT ADMITTED FOR ABD PAIN, MAINLY L SIDED PAIN THAT WOKE HIM UP. RECEIVED REPORT FROM CHAIM RN, PT REPORTED NAUSEA IN ER BUT NONE SINCE. L PANUS SWELLING AND REDNESS WITH POSSIBLE ABSCESS AND L KIDNEY STONE, "SOMEWHAT OBSTRUCTING". PT GIVEN ZOSYN AND VANCO IN ER, PRIOR TO ADMISSION. HX OF BL BREAST CA, IDDM, AND HTN. DR CLAUDIO TO SHORTLY AFTER COMING TO UNIT. NEW ORDERS RECEIVED. PT COVERED IN RED RASH ALL OVER CHEST, ABD, BACK, LEGS AND ARMS. PT REPORTED IT PSORIASIS; CREAM ORDERED, BUT PT REFUSING APPLICATION WHEN RECEIVED. UA ORDERED IN ER, BUT NOT RECEIVED. PT INFORMED AND URINAL GIVEN. PT INTO BTHRM AND VOIDED IN TOILET, REFUSING TO USE URINAL. DR CLAUDIO CALLED TO REQUEST THAT SHE STILL WANTED THE UA AND SOON POSSIBLE. PT INFORMED AGAIN AND ANOTHER URINAL GIVEN. PT LATER UP TO BTHRM, VOIDING IN TOILET, REFUSING TO PROVIDE UA AND BECOMING IRRITABLE ABOUT IT. DR CLAUDIO NOTIFIED. BLADDER SCAN DONE; NO RETENTION NOTED. PT EVENTUALLY PROVIDED UA; SENT TO LAB BY SENIOR COMPENSATION ANALYST. DR CLAUDIO ALSO REPORTED CONTACTING UROLOGY R/T KIDNEY STONE. PER UROLOGY, PT HAS GOOD CHANCE OF PASSING STONE BY VOIDING REGULARLY. IVF'S INFUSING AND PO FLUIDS PROVIDED. IV ABX GIVEN PER EMAR. PT HAS RESTED QUIETLY MOST OF THE DAY, JUST SLEEPING. NO C/O PAIN. NO S/SX OF DISTRESS NOTED OR REPORTED. SKIN RASH REMAINS RED AND DRY WITH SCATTERED SCABS ON ALL EXTREMITIES. CALL LT IN REACH.
--- NOTE | 2019-04-12 01:19 | NUR ---
Alert and oriented x 4. Has continued to deny abd pain through most of shift, requested pain meds once with a 1:10 of 2, then decided it was ok and refused analgesic when offered. NPO since 0000 for Ultrasound of abd in the am. Voiced understanding. IV antibiotics and IVF continue, see MAR for details. Call light in reach.
[2019-04-12 04:54] LABS: BASOPHILS ABSOLUTE AUTO 0.04 K/mm3 (0.00-0.23); BASOPHILS PERCENT AUTO 1 % (0-2); EOSINOPHILS ABSOLUTE AUTO 1.52 K/mm3 (0.00-0.68); EOSINOPHILS PERCENT AUTO 17 % (0-6); Hematocrit 32.4 % (37.0-53.0); Hemoglobin 9.7 g/dL (13.5-17.5); IMMATURE GRAN ABSOLUTE AUTO 0.03 K/mm3 (0.00-0.10); IMMATURE GRAN PERCENT AUTO 0 % (0-1); LYMPHOCYTES ABSOLUTE AUTO 0.76 K/mm3 (0.84-5.20); LYMPHOCYTES PERCENT AUTO 9 % (21-46); MONOCYTES ABSOLUTE AUTO 0.37 K/mm3 (0.16-1.47); MONOCYTES PERCENT AUTO 4 % (4-13); Mean Corpuscular HGB Conc 29.9 g/dL (31.5-36.5); Mean Corpuscular Volume 94 fL (80-100); Mean Platelet Volume 10.7 fL (9.1-12.4); NEUTROPHILS ABSOLUTE AUTO 6.03 K/mm3 (1.96-9.15); NEUTROPHILS PERCENT AUTO 69 % (41-73); Platelet Count 217 K/mm3 (150-400); RDW Coefficient Variation 13.9 % (11.7-14.2); RDW Standard Deviation 46.6 fL (35.1-46.3); Red Blood Cell Count 3.46 M/mm3 (4.30-5.90); White Blood Cell Count 8.75 K/mm3 (4.00-11.30)
[2019-04-12 05:16] LABS: Albumin, Blood 2.3 g/dL (3.4-5.0); Albumin/Globulin Ratio 0.5 (0.8-1.8); Bilirubin, Total 0.4 mg/dL (0.1-1.0); Bun/Creatinine Ratio 7.1 (12.0-20.0); Calcium, Blood 7.9 mg/dL (8.5-10.1); Creatinine, Blood 1.83 mg/dL (0.60-1.20); Globulin, Blood 4.2 g/dL (2.2-4.0); Potassium, Blood 4.3 mmol/L (3.5-5.5); Total Protein, Blood 6.5 g/dL (6.4-8.2); Uric Acid, Blood 8.1 mg/dL (3.5-7.2)
[2019-04-12] MEDS ORDERED: ALLO100 PO (15:37)
[2019-04-12] MEDS ORDERED: Augmentin 875-1 EACH PO (15:43)
[2019-04-12] MEDS ORDERED: CLOB.05TO TOP (15:43)
[2019-04-12] MEDS ORDERED: TAMS.4ER PO (15:44)
--- NOTE | 2019-04-12 17:57 | NUR ---
DISCHARGE PATIENT DISCHARGED HOME AT 1705, HE STATED HE WAS BEING PICKED UP BY HIS DAD. PT TAKEN TO THE PARKING LOT VIA WHEELCHAIR. IV REMOVED. REDDENED "RASH" WITH BUMPS AND HARDENED SKIN WORST ON BACK, BUTTOCKS, INSIDE THIGHS, LOWER ABD, LOWER LEGS, AND WRISTS/HANDS. ORDERED CREAM MIXED WITH [facility] LOTION APPLIED TO ALL AREAS AFTER PATIENT SHOWERED. THESE SITES WERE ITCHY AND A COUPLE SPOTS ON L BUTTOCK HAD BLED A SMALL AMOUNT. CREAM/LOTION IMPROVED ITCHINESS. DC PACKET GIVEN TO PATIENT, NEW MEDS/MED CHANGES EXPLAINED TO PT. HE VERBALIZED UNDERSTANDING AND SIGNED DC FORM.
== END 2019-04-12 17:04 | disposition home or self-care (01) | DRG 603 ==
LOC: ER 04:12 → MEDS 07:08 → ER 09:11 → MEDS 09:15 → ENPENDDIS 04-12 15:48 → MEDS 04-12 17:04
PROVIDERS: Emergency Medicine; ADMIT Internal Medicine
DX: L03.311 Cellulitis of abdominal wall (principal); E87.2 Acidosis; N17.9 Acute kidney failure, unspecified; N20.0 Calculus of kidney; F41.8 Other specified anxiety disorders; Z85.3 Personal history of malignant neoplasm of breast; Z90.13 Acquired absence of bilateral breasts and nipples; E11.51 Type 2 diabetes mellitus with diabetic peripheral angiopathy without gangrene; E11.42 Type 2 diabetes mellitus with diabetic polyneuropathy; E66.01 Morbid (severe) obesity due to excess calories; Z79.82 Long term (current) use of aspirin; Z79.4 Long term (current) use of insulin; G47.33 Obstructive sleep apnea (adult) (pediatric); D50.9 Iron deficiency anemia, unspecified; Z68.35 Body mass index [BMI] 35.0-35.9, adult; H54.40 Blindness, one eye, unspecified eye; E11.22 Type 2 diabetes mellitus with diabetic chronic kidney disease; Z89.422 Acquired absence of other left toe(s); N18.3 Chronic kidney disease, stage 3 (moderate); I12.9 Hypertensive chronic kidney disease with stage 1 through stage 4 chronic kidney disease, or unspecified chronic kidney disease
CPT/HCPCS: 36415; 71046; 74177; 76770; 80053; 81001; 82947; 83605; 83690; 84550; 85025; 85610; 85730; 87086; 94760; J1815; J1885; J2405; J2543; J3010; J3370; J7030; J7050; Q9967

== ENCOUNTER 2019-04-20 18:32 | Emergency (ER) | payer OTHER ==
[~2019-04-20] VITALS: Ht 175.3 cm; Wt 117.9 kg
[~2019-04-20 18:32] MED LIST changes: +ALLO100 PO; +Augmentin 875-1 EACH PO; +CLOB.05TO TOP; +TAMS.4ER PO
[2019-04-20] MEDS ORDERED: HYDR25SUP PR (18:45)
== END 2019-04-20 19:17 | disposition home or self-care (01) ==
LOC: ER 18:32
DX: R19.7 Diarrhea, unspecified (principal); K64.9 Unspecified hemorrhoids; E11.22 Type 2 diabetes mellitus with diabetic chronic kidney disease; N18.9 Chronic kidney disease, unspecified
CPT/HCPCS: 46600; 99284-25

== ENCOUNTER 2019-04-25 19:00 | Emergency (ER) | payer OTHER ==
[~2019-04-25] VITALS: Ht 175.3 cm; Wt 117.9 kg
[~2019-04-25 19:00] MED LIST changes: +HYDR25SUP PR
== END 2019-04-25 21:28 | disposition home or self-care (01) ==
LOC: ER 19:00
DX: M79.651 Pain in right thigh (principal); E11.22 Type 2 diabetes mellitus with diabetic chronic kidney disease; N18.9 Chronic kidney disease, unspecified; E66.01 Morbid (severe) obesity due to excess calories; Z87.442 Personal history of urinary calculi; Z79.899 Other long term (current) drug therapy; Z79.82 Long term (current) use of aspirin
CPT/HCPCS: 93971; 99283-25

== ENCOUNTER 2019-05-10 20:50 | Emergency (ER) | payer OTHER ==
[~2019-05-10] VITALS: Ht 175.3 cm; Wt 115.7 kg
== END 2019-05-10 22:55 | disposition home or self-care (01) ==
LOC: ER 20:50
DX: I73.9 Peripheral vascular disease, unspecified (principal); E11.42 Type 2 diabetes mellitus with diabetic polyneuropathy; L30.9 Dermatitis, unspecified; I10 Essential (primary) hypertension; F32.9 Major depressive disorder, single episode, unspecified; F41.9 Anxiety disorder, unspecified; Z85.3 Personal history of malignant neoplasm of breast; Z79.899 Other long term (current) drug therapy; Z79.82 Long term (current) use of aspirin; Z79.4 Long term (current) use of insulin
CPT/HCPCS: 93971; 99284-25

== ENCOUNTER 2019-06-12 09:59 | Day surgery (SDC) | payer OTHER ==
[~2019-06-12] VITALS: Ht 175.3 cm; Wt 120.0 kg
--- NOTE | 2019-06-12 15:12 | NUR ---
PT R FEMORAL SITE REMAINS CLEAR. NO BLEEDING NOTED. VSS. NADN. PT VERBALIZES UNDERSTANDING WRITTEN AND VERBAL ORDERS.
--- NOTE | 2019-06-12 15:26 | NUR ---
PT DRESSES SELF WITH MINIMAL ASSISTANCE. PT R FEMORAL SITE REMAINS CLEAR. PT IV DC'D. CATH INTACT. PRESSURE DSG IN PLACE. PT DC TO HOME VIA SISTER BY WYATT.
== END 2019-06-12 15:30 | disposition home or self-care (01) ==
LOC: MHTC 09:59
DX: E11.51 Type 2 diabetes mellitus with diabetic peripheral angiopathy without gangrene (principal); L97.829 Non-pressure chronic ulcer of other part of left lower leg with unspecified severity; L97.819 Non-pressure chronic ulcer of other part of right lower leg with unspecified severity; I70.248 Atherosclerosis of native arteries of left leg with ulceration of other part of lower leg; I70.238 Atherosclerosis of native arteries of right leg with ulceration of other part of lower leg; E11.622 Type 2 diabetes mellitus with other skin ulcer; I10 Essential (primary) hypertension; Z88.6 Allergy status to analgesic agent; Z79.4 Long term (current) use of insulin; Z79.82 Long term (current) use of aspirin; Z79.899 Other long term (current) drug therapy
CPT/HCPCS: 37229; 75716; 75774; 85347; 99152; 99153; C1724; C1725; C1760; C1769; C1887; C1894; J1644; J2250; J3010; J7030; Q9967

== ENCOUNTER 2019-07-15 00:14 | Day surgery (SDC) | payer OTHER | END 2019-07-15 23:01 | disposition home or self-care (01) | LOC: WOUND 00:14 | DX: E11.622 Type 2 diabetes mellitus with other skin ulcer (principal); E11.319 Type 2 diabetes mellitus with unspecified diabetic retinopathy without macular edema; E11.21 Type 2 diabetes mellitus with diabetic nephropathy; E11.51 Type 2 diabetes mellitus with diabetic peripheral angiopathy without gangrene; I10 Essential (primary) hypertension; F41.9 Anxiety disorder, unspecified; F32.9 Major depressive disorder, single episode, unspecified; L97.812 Non-pressure chronic ulcer of other part of right lower leg with fat layer exposed; L97.822 Non-pressure chronic ulcer of other part of left lower leg with fat layer exposed; I89.0 Lymphedema, not elsewhere classified; Z88.6 Allergy status to analgesic agent; Z79.899 Other long term (current) drug therapy; Z79.82 Long term (current) use of aspirin | CPT/HCPCS: G0463 ==

== ENCOUNTER 2019-07-17 00:34 | Day surgery (SDC) | payer OTHER | END 2019-07-17 23:45 | disposition home or self-care (01) | LOC: WOUND 00:34 | DX: E11.622 Type 2 diabetes mellitus with other skin ulcer (principal); E11.319 Type 2 diabetes mellitus with unspecified diabetic retinopathy without macular edema; E11.21 Type 2 diabetes mellitus with diabetic nephropathy; E11.51 Type 2 diabetes mellitus with diabetic peripheral angiopathy without gangrene; F41.9 Anxiety disorder, unspecified; F32.9 Major depressive disorder, single episode, unspecified; L97.812 Non-pressure chronic ulcer of other part of right lower leg with fat layer exposed; L97.822 Non-pressure chronic ulcer of other part of left lower leg with fat layer exposed; I89.0 Lymphedema, not elsewhere classified; Z79.899 Other long term (current) drug therapy; Z79.82 Long term (current) use of aspirin; Z79.4 Long term (current) use of insulin ==

== ENCOUNTER 2019-07-18 13:08 | Day surgery (SDC) | payer OTHER | END 2019-07-18 23:23 | disposition home or self-care (01) | LOC: WOUND 13:08 | DX: E11.622 Type 2 diabetes mellitus with other skin ulcer (principal); E11.319 Type 2 diabetes mellitus with unspecified diabetic retinopathy without macular edema; E11.21 Type 2 diabetes mellitus with diabetic nephropathy; E11.51 Type 2 diabetes mellitus with diabetic peripheral angiopathy without gangrene; I10 Essential (primary) hypertension; F32.9 Major depressive disorder, single episode, unspecified; F41.9 Anxiety disorder, unspecified; L97.812 Non-pressure chronic ulcer of other part of right lower leg with fat layer exposed; L97.822 Non-pressure chronic ulcer of other part of left lower leg with fat layer exposed; I89.0 Lymphedema, not elsewhere classified; Z79.899 Other long term (current) drug therapy; Z79.82 Long term (current) use of aspirin; Z79.4 Long term (current) use of insulin ==

== ENCOUNTER 2019-07-21 00:22 | Day surgery (SDC) | payer OTHER | END 2019-07-21 22:46 | disposition home or self-care (01) | LOC: WOUND 00:22 | DX: E11.622 Type 2 diabetes mellitus with other skin ulcer (principal); E11.319 Type 2 diabetes mellitus with unspecified diabetic retinopathy without macular edema; E11.21 Type 2 diabetes mellitus with diabetic nephropathy; E11.51 Type 2 diabetes mellitus with diabetic peripheral angiopathy without gangrene; I89.0 Lymphedema, not elsewhere classified; L97.822 Non-pressure chronic ulcer of other part of left lower leg with fat layer exposed; F32.9 Major depressive disorder, single episode, unspecified; F41.9 Anxiety disorder, unspecified; L97.812 Non-pressure chronic ulcer of other part of right lower leg with fat layer exposed; Z79.899 Other long term (current) drug therapy; Z79.82 Long term (current) use of aspirin; Z79.4 Long term (current) use of insulin ==

== ENCOUNTER 2019-07-23 00:21 | Day surgery (SDC) | payer OTHER ==
[~2019-07-23 00:21] MED LIST changes: -CENTRUM SILVER1 EAC4 PO; +Daily Multiple1 EACH PO
== END 2019-07-23 23:12 | disposition home or self-care (01) ==
LOC: WOUND 00:21
DX: E11.622 Type 2 diabetes mellitus with other skin ulcer (principal); E11.51 Type 2 diabetes mellitus with diabetic peripheral angiopathy without gangrene; E11.21 Type 2 diabetes mellitus with diabetic nephropathy; E11.319 Type 2 diabetes mellitus with unspecified diabetic retinopathy without macular edema; I10 Essential (primary) hypertension; L97.812 Non-pressure chronic ulcer of other part of right lower leg with fat layer exposed; L97.822 Non-pressure chronic ulcer of other part of left lower leg with fat layer exposed; I89.0 Lymphedema, not elsewhere classified; Z79.899 Other long term (current) drug therapy; Z79.82 Long term (current) use of aspirin; Z79.4 Long term (current) use of insulin

== ENCOUNTER 2019-07-29 00:17 | Day surgery (SDC) | payer OTHER | END 2019-07-29 23:02 | disposition home or self-care (01) | LOC: WOUND 00:17 | DX: E11.622 Type 2 diabetes mellitus with other skin ulcer (principal); L97.812 Non-pressure chronic ulcer of other part of right lower leg with fat layer exposed; L97.822 Non-pressure chronic ulcer of other part of left lower leg with fat layer exposed; E11.51 Type 2 diabetes mellitus with diabetic peripheral angiopathy without gangrene; I10 Essential (primary) hypertension; E11.319 Type 2 diabetes mellitus with unspecified diabetic retinopathy without macular edema; E11.21 Type 2 diabetes mellitus with diabetic nephropathy; I89.0 Lymphedema, not elsewhere classified; D50.9 Iron deficiency anemia, unspecified; Z79.4 Long term (current) use of insulin; Z79.82 Long term (current) use of aspirin; Z79.899 Other long term (current) drug therapy; Z85.3 Personal history of malignant neoplasm of breast; Z89.422 Acquired absence of other left toe(s) ==

== ENCOUNTER 2019-08-03 18:38 | Inpatient (IN) | payer OTHER ==
[~2019-08-03] VITALS: Ht 175.3 cm; Wt 107.0 kg
[2019-08-03 22:51] LABS: BASOPHILS ABSOLUTE AUTO 0.06 K/mm3 (0.00-0.23); BASOPHILS PERCENT AUTO 0 % (0-2); EOSINOPHILS ABSOLUTE AUTO 2.21 K/mm3 (0.00-0.68); EOSINOPHILS PERCENT AUTO 15 % (0-6); Hematocrit 34.3 % (37.0-53.0); Hemoglobin 10.5 g/dL (13.5-17.5); IMMATURE GRAN ABSOLUTE AUTO 0.05 K/mm3 (0.00-0.10); IMMATURE GRAN PERCENT AUTO 0 % (0-1); LYMPHOCYTES PERCENT AUTO 5 % (21-46); MONOCYTES ABSOLUTE AUTO 0.52 K/mm3 (0.16-1.47); MONOCYTES PERCENT AUTO 4 % (4-13); Mean Corpuscular HGB 27.9 pg (26.0-34.0); Mean Corpuscular HGB Conc 30.6 g/dL (31.5-36.5); Mean Corpuscular Volume 91 fL (80-100); Mean Platelet Volume 10.3 fL (9.1-12.4); NEUTROPHILS ABSOLUTE AUTO 10.95 K/mm3 (1.96-9.15); NEUTROPHILS PERCENT AUTO 76 % (41-73); Platelet Count 213 K/mm3 (150-400); RDW Coefficient Variation 13.5 % (11.7-14.2); RDW Standard Deviation 45.2 fL (35.1-46.3); Red Blood Cell Count 3.76 M/mm3 (4.30-5.90); White Blood Cell Count 14.49 K/mm3 (4.00-11.30)
[2019-08-04 00:16] LABS: Albumin/Globulin Ratio 0.5 (0.8-1.8); Bilirubin, Total 0.3 mg/dL (0.1-1.0); Bun/Creatinine Ratio 9.9 (12.0-20.0); Calcium, Blood 8.8 mg/dL (8.5-10.1); Creatinine, Blood 1.52 mg/dL (0.60-1.20); Globulin, Blood 5.5 g/dL (2.2-4.0); Magnesium, Blood 1.9 mg/dL (1.6-2.4); Potassium, Blood 4.8 mmol/L (3.5-5.5); Total Protein, Blood 8.5 g/dL (6.4-8.2)
--- NOTE | 2019-08-04 04:36 | NUR ---
ASSUMED CARE OF PT. RESTING COMFORTABLY IN STRETCHER. NO APPARENT DISTRESS NOTED. PT. STATES PAIN TO THE L LEG TOLERABLE A 5/10. DENIES NEEDS AT THIS TIME. CALL LIGHT WITHIN REACH AND SIDE RAILS UP X2. WILL CONT TO MONITOR.
[2019-08-04 05:51] LABS: Hemoglobin 9.8 g/dL (13.5-17.5); Mean Corpuscular HGB Conc 30.6 g/dL (31.5-36.5); Mean Corpuscular Volume 91 fL (80-100); Mean Platelet Volume 10.3 fL (9.1-12.4); Platelet Count 191 K/mm3 (150-400); RDW Coefficient Variation 13.4 % (11.7-14.2); RDW Standard Deviation 44.8 fL (35.1-46.3); White Blood Cell Count 10.99 K/mm3 (4.00-11.30)
[2019-08-04 06:14] LABS: Albumin, Blood 2.7 g/dL (3.4-5.0); Albumin/Globulin Ratio 0.6 (0.8-1.8); Bilirubin, Total 0.4 mg/dL (0.1-1.0); Bun/Creatinine Ratio 9.3 (12.0-20.0); Calcium, Blood 8.6 mg/dL (8.5-10.1); Creatinine, Blood 1.62 mg/dL (0.60-1.20); Globulin, Blood 4.7 g/dL (2.2-4.0); Potassium, Blood 4.6 mmol/L (3.5-5.5); Total Protein, Blood 7.4 g/dL (6.4-8.2)
[2019-08-04] MEDS ORDERED: FEROSUL325 M1 PO (12:35)
[2019-08-04] MEDS ORDERED: Diltiazem HCl120 MG PO (12:35)
[2019-08-04] MEDS ORDERED: POTASSIUM CHLO10 MEQ PO (12:36)
--- NOTE | 2019-08-04 17:15 | NUR ---
PT ARRIVED IN ROOM AROUND 1430. PT WAS ABLE TO STAND ON HIS OWN AND TRANSFER TO BED FROM CART. PT AOX4 AND COOPERATIVE OF CARE. PT DENIES PAIN SO FAR, BUT HAD NAUSEA AND WAS TREATED PER EMAR. PT RESTING IN BED AT HIS THIS TIME WILL CONTINUE TO MONITOR.
--- NOTE | 2019-08-05 04:09 | NUR ---
SHIFT SUMMARY ADMITTED FOR LEFT LEG CELLULITIS/LEFT LEG ULCER. FULL CODE. WOUND CLINIC PT. DR. VILA HAS BEEN CALLED FOR CONSULT. A&O X4, BLIND, INDEPENDENT IN ROOM, RA, CONTINENT, REGULAR DIET. LANTUS COVERAGE ONLY IN AM. ACHS CHEMSTIX. HX: NEUROPATHY, DM 2, CAD, PVD, BLINDNESS, GI BLEED, CKD3, LEFT VENTRICULAR HEART DYSFUNCTION.
--- NOTE | 2019-08-05 14:26 | NUR ---
Patient gave permission for care at 1420 on 08/05/19.
--- NOTE | 2019-08-05 17:41 | NUR ---
PT AOX4 AND COOPERATIVE OF CARE. PT HAS BEEN INDEPENDENT TO RESTROOM. PT DENIES PAIN, BUT AGJI HAD NAUSEA TODAY X1 AND WAS TREATED PER EMAR. NO DISTRESS NOTED AND PLEASANT WITH CARE. CALL LIGHT WITHIN REACH. WILL CONTINUE TO MONITOR.
--- NOTE | 2019-08-05 20:57 | NUR ---
CALLED DR REED INFORMED HIM BLADDER SCAN REVEALED 445 CC'S URINE. HE STATED WE WOULD SCAN HIM AGAIN IN THE MORNING. I DID GIVE THIS PT HIS PM DOSE OF FLOMAX. PT DENIES DISCOMFORT.
--- NOTE | 2019-08-05 23:28 | NUR ---
PT STATUS PT WAS ABLE TO URINATE 100 ML. 24 HR URINE PROTEIN COLLECTION HAS STARTED.
--- NOTE | 2019-08-06 04:32 | NUR ---
SHIFT SUMMARY ADMITTED FOR LFT LEG CELLULITIS/ULCER. FULL CODE. RETAINING URINE, BLADDER SCANS PRN. 24 HR URINE PROTEIN COLLECTION BEGUN. ACHS, A&O X4, RA. CONSULT DR HARRY WILL PERFORM AN IN-ROOM PROCEDURE TODAY ON THE LEFT LEG. CONSULT DR REED IS FOLLOWING. PT HAS AN ULCER ON THE LEFT LEG. IV ANTIBIOTICS ARE SCHEDULED. HX: NEUROPATHY, DM2, CAD, PVD, GI BLEED, CKD3, LFT VENTRICULAR DYSFUNCTION, BLIND LEFT EYE.
[2019-08-06 05:21] LABS: BASOPHILS ABSOLUTE AUTO 0.03 K/mm3 (0.00-0.23); BASOPHILS PERCENT AUTO 0 % (0-2); EOSINOPHILS ABSOLUTE AUTO 1.36 K/mm3 (0.00-0.68); EOSINOPHILS PERCENT AUTO 15 % (0-6); Hematocrit 27.7 % (37.0-53.0); Hemoglobin 8.5 g/dL (13.5-17.5); IMMATURE GRAN ABSOLUTE AUTO 0.05 K/mm3 (0.00-0.10); IMMATURE GRAN PERCENT AUTO 1 % (0-1); LYMPHOCYTES ABSOLUTE AUTO 1.01 K/mm3 (0.84-5.20); LYMPHOCYTES PERCENT AUTO 11 % (21-46); MONOCYTES ABSOLUTE AUTO 0.47 K/mm3 (0.16-1.47); MONOCYTES PERCENT AUTO 5 % (4-13); Mean Corpuscular HGB 28.1 pg (26.0-34.0); Mean Corpuscular HGB Conc 30.7 g/dL (31.5-36.5); Mean Corpuscular Volume 91 fL (80-100); Mean Platelet Volume 10.9 fL (9.1-12.4); NEUTROPHILS ABSOLUTE AUTO 5.93 K/mm3 (1.96-9.15); NEUTROPHILS PERCENT AUTO 67 % (41-73); Platelet Count 171 K/mm3 (150-400); RDW Coefficient Variation 13.6 % (11.7-14.2); RDW Standard Deviation 45.7 fL (35.1-46.3); Red Blood Cell Count 3.03 M/mm3 (4.30-5.90); White Blood Cell Count 8.85 K/mm3 (4.00-11.30)
[2019-08-06 05:44] LABS: Albumin, Blood 2.2 g/dL (3.4-5.0); Anion Gap 7 mmol/L (6-16); Blood Urea Nitrogen 23 mg/dL (8-24); Bun/Creatinine Ratio 10.1 (12.0-20.0); CO2, Blood 28 mmol/L (21-32); Calcium, Blood 8.3 mg/dL (8.5-10.1); Chloride, Blood 106 mmol/L (98-108); Creatinine, Blood 2.27 mg/dL (0.60-1.20); Glomerular Filtration Rate 32 (60-); Glucose, Blood 131 mg/dL (70-99); Phosphorus, Blood 3.4 mg/dL (2.5-4.9); Sodium, Blood 141 mmol/L (136-145)
[2019-08-06 06:04] LABS: Prostate Specific Antigen 0.214 ng/mL (0.000-4.000)
--- NOTE | 2019-08-06 09:00 | NUR ---
PT PLEASANT LEGAL SECRETARY A.O. DENIES PAIN AT THIS TIME. H/R REG, NO MURMER NOTED. NO TELE. LUNGS CLEAR, RESP EASY, UNLABORED, ON R.A. BT X4 ALST BM TODAY. VOIDS BATHROOM. INDEPENDANT IN ROOM. LEGS RED, BLE +2. SCALEY. SORE L LEG. NO OTHER CONCERNS AT THIS TIME . BED IN LOW POSITION, CALL LITE IN [facility], CALLS APPROP
--- NOTE | 2019-08-06 10:36 | NUR ---
called dr cook [facility]. medical dermatologist asked if okay to give lovenox. is okay. will call me when to do proedure.
--- NOTE | 2019-08-06 18:54 | NUR ---
PT PLEASANT ALL DAY. HAS BEEN WAITING FOR DR HARRY FOR LEG PROCEDURE ALL DAY, NOT HERE OF THIS TIME. HAS BEEN INDPENDANT IN ROOM. NO OTHER CONCERNS AT THIS TIME. BED IN LOW POSITION, CALL LITE IN REACH, CALLS APPROP. IN CHAIR AT THIS TIME.
--- NOTE | 2019-08-06 22:02 | NUR ---
Patient has large open wound to left outer montemayor. Wound with serous drainage, moderate. Wound has large dk eschar disc in center of wound. Wound claned with wound cleanser and exudry pad placed and wrapped with kerlex. Report to Pt nurse Stella. P denies discomfort, states he has neuropathy above the wound. Call light in reach.
[2019-08-06 23:27] LABS: Protein, Urine Quantitative 54.3 mg/dL (0.0-11.9)
[2019-08-07 05:24] LABS: BASOPHILS ABSOLUTE AUTO 0.03 K/mm3 (0.00-0.23); BASOPHILS PERCENT AUTO 0 % (0-2); EOSINOPHILS ABSOLUTE AUTO 1.92 K/mm3 (0.00-0.68); EOSINOPHILS PERCENT AUTO 21 % (0-6); Hematocrit 29.1 % (37.0-53.0); IMMATURE GRAN ABSOLUTE AUTO 0.05 K/mm3 (0.00-0.10); IMMATURE GRAN PERCENT AUTO 1 % (0-1); LYMPHOCYTES ABSOLUTE AUTO 0.74 K/mm3 (0.84-5.20); LYMPHOCYTES PERCENT AUTO 8 % (21-46); MONOCYTES ABSOLUTE AUTO 0.49 K/mm3 (0.16-1.47); MONOCYTES PERCENT AUTO 5 % (4-13); Mean Corpuscular HGB 28.3 pg (26.0-34.0); Mean Corpuscular HGB Conc 30.9 g/dL (31.5-36.5); Mean Corpuscular Volume 92 fL (80-100); NEUTROPHILS ABSOLUTE AUTO 6.08 K/mm3 (1.96-9.15); NEUTROPHILS PERCENT AUTO 65 % (41-73); Platelet Count 168 K/mm3 (150-400); RDW Coefficient Variation 13.6 % (11.7-14.2); RDW Standard Deviation 45.8 fL (35.1-46.3); RETICULOCYTE COUNT PERCENT 1.25 % (0.50-2.50); Red Blood Cell Count 3.18 M/mm3 (4.30-5.90); White Blood Cell Count 9.31 K/mm3 (4.00-11.30)
[2019-08-07 05:43] LABS: Percent Saturation 15.4 % (20.0-50.0)
[2019-08-07 05:47] LABS: Albumin, Blood 2.3 g/dL (3.4-5.0); Anion Gap 7 mmol/L (6-16); Blood Urea Nitrogen 30 mg/dL (8-24); Bun/Creatinine Ratio 9.9 (12.0-20.0); CO2, Blood 29 mmol/L (21-32); Calcium, Blood 8.2 mg/dL (8.5-10.1); Chloride, Blood 104 mmol/L (98-108); Creatinine, Blood 3.02 mg/dL (0.60-1.20); Glomerular Filtration Rate 23 (60-); Glucose, Blood 187 mg/dL (70-99); Phosphorus, Blood 3.8 mg/dL (2.5-4.9); Sodium, Blood 140 mmol/L (136-145)
--- NOTE | 2019-08-07 08:37 | NUR ---
58 year old Male IDDM who refuses flu vaccine continued in droplet contact isolation for positive influenza A status. Productive cough this good streaked sputum, 2 l nc to keep sats greater than 90%. On IV steroids to tx and recieved neb tx. BG elevated, asked PT to have Family bring in speciality insulin will bring in this AM. Medium sliding scale insulin given.
[2019-08-07 14:07] LABS: Stool Occult Bld Immuno 1 Negative (NEGATIVE)
--- NOTE | 2019-08-07 19:38 | NUR ---
PATIENT A/OX4, UP WITH FWW AND 1 ASSIST. DRESSING TO LLE CHANGED THIS SHIFT. VSS, ON RA. NS @ 50ML/HR INFUSING. 20G TO L AC WNL. PATIENT HAS ECZEMA RASH T/O, EUCERIN CREAM ORDERED PER PATIENT REQUEST. TOLERATING ADA DIET, ACHS BLOOD SUGARS. MULTIPLE SKIN ISSUES, PICS ON CHART. CALM AND COOPERATIVE WITH CARE, CALLS APPROPRIATELY FOR ASSISTANCE.
--- NOTE | 2019-08-08 03:37 | NUR ---
SHIFT SUMMARY ASSUMED CARE OF PT AT 1900. PT IS A/O X4, STATES HE HAS NEUROPATHY IN HIS LEGS, FAMILY PRESENT ON ASSESSMENT, PT IS BLIND IN HIS L EYE. HEART SOUNDS REGULAR, FINE CRACKLES AT THE BASES OF LUNGS, DENIES CP/SOB AT THIS TIME. PT C/O DIARRHEA, HOSPITALIST NOTIFIED AND PERSCRIBED IMODIUM. PT STATES HE IS URINATING FINE. PT SKIN IS TOUGH, ASHISH, AND RED DUE TO RASH, DAYSHIFT PERSCRIBED LOTION, LOTION APPLIED. WOUND DRESSING CHANGED IN AM, C/D/I NOW. PT SLEPT T/O THE NIGHT, CALL LIGHT IN REACH, BED IN LOWEST POSTION, WILL CONTINUE TO MONITOR UNTIL DAYSHIFT NURSE ARRIVES.
[2019-08-08 05:45] LABS: BASOPHILS ABSOLUTE AUTO 0.03 K/mm3 (0.00-0.23); BASOPHILS PERCENT AUTO 0 % (0-2); EOSINOPHILS ABSOLUTE AUTO 2.02 K/mm3 (0.00-0.68); EOSINOPHILS PERCENT AUTO 27 % (0-6); Hematocrit 31.6 % (37.0-53.0); Hemoglobin 9.6 g/dL (13.5-17.5); IMMATURE GRAN ABSOLUTE AUTO 0.03 K/mm3 (0.00-0.10); IMMATURE GRAN PERCENT AUTO 0 % (0-1); LYMPHOCYTES ABSOLUTE AUTO 1.04 K/mm3 (0.84-5.20); LYMPHOCYTES PERCENT AUTO 14 % (21-46); MONOCYTES ABSOLUTE AUTO 0.37 K/mm3 (0.16-1.47); MONOCYTES PERCENT AUTO 5 % (4-13); Mean Corpuscular HGB Conc 30.4 g/dL (31.5-36.5); Mean Corpuscular Volume 92 fL (80-100); Mean Platelet Volume 10.7 fL (9.1-12.4); NEUTROPHILS ABSOLUTE AUTO 4.14 K/mm3 (1.96-9.15); NEUTROPHILS PERCENT AUTO 54 % (41-73); Platelet Count 183 K/mm3 (150-400); RDW Coefficient Variation 13.5 % (11.7-14.2); RDW Standard Deviation 45.6 fL (35.1-46.3); Red Blood Cell Count 3.43 M/mm3 (4.30-5.90); White Blood Cell Count 7.63 K/mm3 (4.00-11.30)
[2019-08-08 06:02] LABS: Albumin, Blood 2.4 g/dL (3.4-5.0); Anion Gap 6 mmol/L (6-16); Blood Urea Nitrogen 29 mg/dL (8-24); Bun/Creatinine Ratio 10.5 (12.0-20.0); CO2, Blood 28 mmol/L (21-32); Calcium, Blood 8.2 mg/dL (8.5-10.1); Chloride, Blood 109 mmol/L (98-108); Creatinine, Blood 2.77 mg/dL (0.60-1.20); Glomerular Filtration Rate 25 (60-); Glucose, Blood 141 mg/dL (70-99); Phosphorus, Blood 3.6 mg/dL (2.5-4.9); Potassium, Blood 4.1 mmol/L (3.5-5.5); Sodium, Blood 143 mmol/L (136-145)
--- NOTE | 2019-08-08 09:30 | NUR ---
PT PLEASANT COOP A/O. DENIES PAIN. LEG ULCER REMAINS. H/R REG, NO MURMER NOTED. NO TELE. LUNGS CLEAR, RESP EASY, UNLABORED. ON R/A. BT X4 LAST BM THIS AM. LOOSE, IMMODIUM GIVEN WITH AM MEDS. VOIDS PER BATHROOM. SBA WITH LINES. BED IN LOW POSITOIN, CALL LITE IN REACH, CALLS APPROP
--- NOTE | 2019-08-08 17:04 | NUR ---
PT PLEASANT TODAY. SHOWERED, IV DRESSING CHAANGE. NEW BANDAGE PLACED ON LEG. NO NEW CONCERNS AT THIS TIME. BED I NLOW POSITION, CALL LITE IN [facility], IN CHAIR AT THIS TIME. CALLS AP;PROP
--- NOTE | 2019-08-08 22:31 | NUR ---
2210 PT ADMITTED TO ROOM 360 PER CART FROM ER; REPORT RECEIVED FROM OBINNA DOMINGUEZ IN ER (ALBERTO STATED, "THE BENAVIDES CATHETER WAS CHANGED IN ER AND A UA WAS SENT"); BENAVIDES DRAINING DARK YELLOW FLUID WITH SEDIMENT ATTACHED TO RIGHT THIGH STRAP; ALERT AND ORIENTED X 4; ABLE TO FOLLOW SIMPLE VERBAL COMMANDS; PT VERY WEAK; PT WAS SLIDE FROM CART TO BED X 4 ASSIST; PTS BED ALARM APPLIED WITH CALL LIGHT AT SIDE.
--- NOTE | 2019-08-09 04:35 | NUR ---
SHIFT SUMMARY: 54 Y/O MALE RESTED COMFORTABLY ALL SHIFT; PT CONTINUES TO HAVE MULTIPLE LOOSE YELLOW STOOLS WITH IMODIUM 2MG PO GIVEN WITH MINIMAL RELIEF FELT; ALERT AND ORIENTED X 4; PT BLIND LEFT EYE; DENIES PAIN OR NAUSEA; BED LOW POSITION WITH CALL LIGHT AT SIDE; SPOUSE AT SIDE.
[2019-08-09 05:20] LABS: Hematocrit 27.2 % (37.0-53.0); Hemoglobin 8.4 g/dL (13.5-17.5)
[2019-08-09 05:49] LABS: Albumin, Blood 2.3 g/dL (3.4-5.0); Anion Gap 8 mmol/L (6-16); Blood Urea Nitrogen 35 mg/dL (8-24); CO2, Blood 24 mmol/L (21-32); Calcium, Blood 8.1 mg/dL (8.5-10.1); Chloride, Blood 110 mmol/L (98-108); Creatinine, Blood 2.91 mg/dL (0.60-1.20); Glomerular Filtration Rate 24 (60-); Glucose, Blood 138 mg/dL (70-99); Phosphorus, Blood 3.3 mg/dL (2.5-4.9); Potassium, Blood 4.1 mmol/L (3.5-5.5); Sodium, Blood 142 mmol/L (136-145)
--- NOTE | 2019-08-09 18:02 | NUR ---
SHIFT SUMMARY PT WOUND CARE COMPLETED THIS SHIFT. PT NAUSEATED THIS AM. PT STATES FEELING "FINE" SINCE. NO OTHER CHANGES IN ASSESSMENT AT THIS TIME. AWAITING RENAL ULTRASOUND. VSS. WILL CONTINUE TO MONITOR UNTIL TURNOVER IS COMPLETE.
--- NOTE | 2019-08-10 04:14 | NUR ---
SHIFT SUMMARY: 54 Y/O MALE RESTED COMFORTABLY ALL SHIFT; C/O DIARRHEA X 1 WITH IMODIUM 2MG PO GIVEN WITH RELIEF FELT; ALERT AND ORIENTED X 4; UP INDEPENDENTLY IN ROOM; BED LOW POSITION WITH CALL LIGHT AT SIDE.
[2019-08-10 05:17] LABS: Hematocrit 27.4 % (37.0-53.0); Hemoglobin 8.2 g/dL (13.5-17.5)
[2019-08-10 05:41] LABS: Albumin, Blood 2.4 g/dL (3.4-5.0); Anion Gap 4 mmol/L (6-16); Blood Urea Nitrogen 31 mg/dL (8-24); Bun/Creatinine Ratio 12.6 (12.0-20.0); CO2, Blood 26 mmol/L (21-32); Calcium, Blood 8.1 mg/dL (8.5-10.1); Chloride, Blood 111 mmol/L (98-108); Creatinine, Blood 2.47 mg/dL (0.60-1.20); Glomerular Filtration Rate 29 (60-); Glucose, Blood 158 mg/dL (70-99); Magnesium, Blood 2.1 mg/dL (1.6-2.4); Phosphorus, Blood 3.1 mg/dL (2.5-4.9); Sodium, Blood 141 mmol/L (136-145)
--- NOTE | 2019-08-10 16:37 | NUR ---
SHIFT SUMMARY WOUND CARE COMPLETED. PT GAVE SELF SMALL SKIN TEAR IN BATHROOM THIS SHIFT. SMALL AMOUNT OF BLEEDING. PT BANDAGED NOW. PT SHOWERED TODAY. POOR APPETITE THIS SHIFT. PT AGREED TO ENSURE FOR MEAL REPLACEMENT. IMODIUM GIVEN ONCE THIS SHIFT FOR DIARRHEA. NO OTHER CHANGES IN ASSESSMENT AT THIS TIME. VSS. WILL CONTINUE TO MONITOR UNTIL TURNOVER IS COMPLETE.
--- NOTE | 2019-08-11 05:13 | NUR ---
RESTING QUIETLY WITH FEW INTERRUPTIONS, SAID INTERRUPTIONS INCLUDED BATHROOM X 2 AND IV REPLACEMENT X 1. IVF INFUSING PER MAR. SKIN REMAINS DRY AND CALLOUSED. SCRATCHED BUTTOCKS AND CAUSED TO BLEED. AREA CLEANED AND MOISTURIZER APPLIED. REATING QUIETLY AT THIS TIME. CALL LIGHT IN REACH.
[2019-08-11 06:01] LABS: Hematocrit 30.3 % (37.0-53.0)
[2019-08-11 06:26] LABS: Albumin, Blood 2.5 g/dL (3.4-5.0); Anion Gap 7 mmol/L (6-16); Blood Urea Nitrogen 31 mg/dL (8-24); Bun/Creatinine Ratio 12.8 (12.0-20.0); CO2, Blood 24 mmol/L (21-32); Calcium, Blood 8.6 mg/dL (8.5-10.1); Chloride, Blood 112 mmol/L (98-108); Creatinine, Blood 2.42 mg/dL (0.60-1.20); Glomerular Filtration Rate 30 (60-); Glucose, Blood 139 mg/dL (70-99); Magnesium, Blood 2.2 mg/dL (1.6-2.4); Phosphorus, Blood 3.1 mg/dL (2.5-4.9); Potassium, Blood 4.6 mmol/L (3.5-5.5); Sodium, Blood 143 mmol/L (136-145)
[2019-08-11] MEDS ORDERED: ACET325 PO (17:35)
[2019-08-11] MEDS ORDERED: CEFU500T30 PO (17:36)
[2019-08-11] MEDS ORDERED: METO50ER PO (17:37)
[2019-08-11] MEDS ORDERED: EUCERIN ORIGIN250 ML TOP (17:38)
[2019-08-11] MEDS ORDERED: CENTRUM ADULTS1 EACH PO (17:40)
[2019-08-11] MEDS ORDERED: CLOB.05TO TOP (17:40)
--- NOTE | 2019-08-11 18:10 | NUR ---
PT DISCHARGED. PT DISCHARGED IN STABLE CONDITION WITH VSS. PT ATE DINNER PRIOR TO DC. [facility] NO CHANGES IN ASSESSMENT PRIOR TO DC. PT WOUND CARE COMPLETED. PT EDUCATED ON DC INSTRUCTIONS & FOLLOW UP APPOINTMENTS. DENIES NEED FOR FURTHER INSTRUCTION. PT WHEELED OUT BY AIDE & DRIVEN HOME BY FRIEND.
== END 2019-08-11 18:09 | disposition home or self-care (01) | DRG 638 ==
LOC: ER 18:38 → MEDS 18:39 → ERHOLD 18:39 → MEDS 18:39 → ER 18:39 → ERHOLD 18:40 → ER 08-04 02:17 → ERHOLD 08-04 02:17 → MEDS 08-04 14:20 → ERHOLD 08-06 16:33 → MEDS 08-06 16:33
PROVIDERS: Emergency Medicine; Hospitalist; Internal Medicine Nephrology; ADMIT Internal Medicine
DX: E11.628 Type 2 diabetes mellitus with other skin complications (principal); L03.116 Cellulitis of left lower limb; L97.929 Non-pressure chronic ulcer of unspecified part of left lower leg with unspecified severity; I13.0 Hypertensive heart and chronic kidney disease with heart failure and stage 1 through stage 4 chronic kidney disease, or unspecified chronic kidney disease; I50.32 Chronic diastolic (congestive) heart failure; N13.2 Hydronephrosis with renal and ureteral calculous obstruction; N17.0 Acute kidney failure with tubular necrosis; H54.7 Unspecified visual loss; E11.319 Type 2 diabetes mellitus with unspecified diabetic retinopathy without macular edema; E11.22 Type 2 diabetes mellitus with diabetic chronic kidney disease; N18.3 Chronic kidney disease, stage 3 (moderate); Z79.4 Long term (current) use of insulin; I25.10 Atherosclerotic heart disease of native coronary artery without angina pectoris; E66.9 Obesity, unspecified; I73.9 Peripheral vascular disease, unspecified; E11.40 Type 2 diabetes mellitus with diabetic neuropathy, unspecified; D63.1 Anemia in chronic kidney disease; E88.09 Other disorders of plasma-protein metabolism, not elsewhere classified; E11.65 Type 2 diabetes mellitus with hyperglycemia
CPT/HCPCS: 36415; 73590; 73701; 74150; 76770; 80053; 80069; 81050; 82274; 82607; 82728; 82746; 82947; 83540; 83550; 83605; 83735; 84145; 84156; 85014; 85018; 85025; 85027; 85045; 87040; 93926; 93971; 96365-59; 96366; 96367; 96372-59; 96375-59; 96376; 97110; 97116; 97162; 97165; 97530; 99285-25; A9270-GY; G0103; G0378; J0690; J0881; J1650; J2405; J3370; J7030; J7050; Q9967

== ENCOUNTER 2019-08-18 00:30 | Day surgery (SDC) | payer OTHER ==
[~2019-08-18 00:30] MED LIST changes: +ACET325 PO; +CENTRUM ADULTS1 EACH PO; +EUCERIN ORIGIN250 ML TOP; +FEROSUL325 M1 PO; +POTASSIUM CHLO10 MEQ PO
== END 2019-08-18 22:50 | disposition home or self-care (01) ==
LOC: WOUND 00:30
DX: E11.622 Type 2 diabetes mellitus with other skin ulcer (principal); E11.319 Type 2 diabetes mellitus with unspecified diabetic retinopathy without macular edema; E11.51 Type 2 diabetes mellitus with diabetic peripheral angiopathy without gangrene; E11.21 Type 2 diabetes mellitus with diabetic nephropathy; I10 Essential (primary) hypertension; F41.9 Anxiety disorder, unspecified; F32.9 Major depressive disorder, single episode, unspecified; L97.822 Non-pressure chronic ulcer of other part of left lower leg with fat layer exposed; I89.0 Lymphedema, not elsewhere classified; E78.5 Hyperlipidemia, unspecified; Z79.899 Other long term (current) drug therapy; Z79.82 Long term (current) use of aspirin; Z79.4 Long term (current) use of insulin

== ENCOUNTER 2019-09-04 00:52 | Day surgery (SDC) | payer OTHER | END 2019-09-04 22:47 | disposition home or self-care (01) | LOC: WOUND 00:52 | DX: E11.622 Type 2 diabetes mellitus with other skin ulcer (principal); L97.822 Non-pressure chronic ulcer of other part of left lower leg with fat layer exposed; I73.9 Peripheral vascular disease, unspecified; E11.21 Type 2 diabetes mellitus with diabetic nephropathy; F41.9 Anxiety disorder, unspecified; F32.9 Major depressive disorder, single episode, unspecified; I10 Essential (primary) hypertension; Z79.899 Other long term (current) drug therapy; Z79.82 Long term (current) use of aspirin; Z79.4 Long term (current) use of insulin ==

== ENCOUNTER 2019-09-11 00:24 | Day surgery (SDC) | payer OTHER | END 2019-09-11 23:47 | disposition home or self-care (01) | LOC: WOUND 00:24 | DX: E11.622 Type 2 diabetes mellitus with other skin ulcer (principal); E11.51 Type 2 diabetes mellitus with diabetic peripheral angiopathy without gangrene; L97.822 Non-pressure chronic ulcer of other part of left lower leg with fat layer exposed; F41.9 Anxiety disorder, unspecified; F32.9 Major depressive disorder, single episode, unspecified; I10 Essential (primary) hypertension; Z79.899 Other long term (current) drug therapy; Z79.82 Long term (current) use of aspirin; Z79.4 Long term (current) use of insulin ==

== ENCOUNTER 2019-09-18 00:21 | Day surgery (SDC) | payer OTHER | END 2019-09-18 23:54 | disposition home or self-care (01) | LOC: WOUND 00:21 | DX: E11.622 Type 2 diabetes mellitus with other skin ulcer (principal); E11.51 Type 2 diabetes mellitus with diabetic peripheral angiopathy without gangrene; E11.21 Type 2 diabetes mellitus with diabetic nephropathy; I10 Essential (primary) hypertension; L97.822 Non-pressure chronic ulcer of other part of left lower leg with fat layer exposed; Z79.82 Long term (current) use of aspirin; Z79.899 Other long term (current) drug therapy; Z79.4 Long term (current) use of insulin ==

== ENCOUNTER 2019-09-22 00:17 | Day surgery (SDC) | payer OTHER | END 2019-09-22 23:10 | disposition home or self-care (01) | LOC: WOUND 00:17 | DX: E11.622 Type 2 diabetes mellitus with other skin ulcer (principal); E11.51 Type 2 diabetes mellitus with diabetic peripheral angiopathy without gangrene; L97.822 Non-pressure chronic ulcer of other part of left lower leg with fat layer exposed; E11.21 Type 2 diabetes mellitus with diabetic nephropathy; Z79.4 Long term (current) use of insulin ==

== ENCOUNTER 2019-10-02 00:12 | Day surgery (SDC) | payer OTHER | END 2019-10-02 22:54 | disposition home or self-care (01) | LOC: WOUND 00:12 | DX: L97.822 Non-pressure chronic ulcer of other part of left lower leg with fat layer exposed (principal); S81.801A Unspecified open wound, right lower leg, initial encounter; E11.51 Type 2 diabetes mellitus with diabetic peripheral angiopathy without gangrene; I10 Essential (primary) hypertension; E11.21 Type 2 diabetes mellitus with diabetic nephropathy ==

== ENCOUNTER 2019-10-09 00:15 | Day surgery (SDC) | payer OTHER | END 2019-10-09 22:49 | disposition home or self-care (01) | LOC: WOUND 00:15 | DX: E11.622 Type 2 diabetes mellitus with other skin ulcer (principal); L97.822 Non-pressure chronic ulcer of other part of left lower leg with fat layer exposed; S81.801D Unspecified open wound, right lower leg, subsequent encounter; E11.21 Type 2 diabetes mellitus with diabetic nephropathy; I10 Essential (primary) hypertension; E11.51 Type 2 diabetes mellitus with diabetic peripheral angiopathy without gangrene; F41.9 Anxiety disorder, unspecified; F32.9 Major depressive disorder, single episode, unspecified; Z79.899 Other long term (current) drug therapy; Z79.82 Long term (current) use of aspirin; Z79.4 Long term (current) use of insulin ==

== ENCOUNTER 2019-10-23 00:18 | Day surgery (SDC) | payer OTHER | END 2019-10-23 23:07 | disposition home or self-care (01) | LOC: WOUND 00:18 | DX: E11.622 Type 2 diabetes mellitus with other skin ulcer (principal); E11.51 Type 2 diabetes mellitus with diabetic peripheral angiopathy without gangrene; E11.21 Type 2 diabetes mellitus with diabetic nephropathy; E11.319 Type 2 diabetes mellitus with unspecified diabetic retinopathy without macular edema; L97.822 Non-pressure chronic ulcer of other part of left lower leg with fat layer exposed; S81.801D Unspecified open wound, right lower leg, subsequent encounter; I10 Essential (primary) hypertension; Z79.899 Other long term (current) drug therapy; Z79.82 Long term (current) use of aspirin; Z79.4 Long term (current) use of insulin ==

== ENCOUNTER 2019-10-30 00:14 | Day surgery (SDC) | payer MEDICARE, OTHER | END 2019-10-30 23:52 | disposition home or self-care (01) | LOC: WOUND 00:14 | DX: E11.622 Type 2 diabetes mellitus with other skin ulcer (principal); E11.51 Type 2 diabetes mellitus with diabetic peripheral angiopathy without gangrene; I89.0 Lymphedema, not elsewhere classified; L97.822 Non-pressure chronic ulcer of other part of left lower leg with fat layer exposed; E11.21 Type 2 diabetes mellitus with diabetic nephropathy; I10 Essential (primary) hypertension; F41.9 Anxiety disorder, unspecified; F32.9 Major depressive disorder, single episode, unspecified; Z79.899 Other long term (current) drug therapy; Z79.82 Long term (current) use of aspirin; Z79.4 Long term (current) use of insulin ==

== ENCOUNTER 2019-11-07 00:32 | Day surgery (SDC) | payer MEDICARE, OTHER | END 2019-11-07 23:11 | disposition home or self-care (01) | LOC: WOUND 00:32 | DX: E11.622 Type 2 diabetes mellitus with other skin ulcer (principal); L97.822 Non-pressure chronic ulcer of other part of left lower leg with fat layer exposed; S81.801D Unspecified open wound, right lower leg, subsequent encounter; E11.51 Type 2 diabetes mellitus with diabetic peripheral angiopathy without gangrene; E11.21 Type 2 diabetes mellitus with diabetic nephropathy; I10 Essential (primary) hypertension; F41.9 Anxiety disorder, unspecified; F32.9 Major depressive disorder, single episode, unspecified; Z79.899 Other long term (current) drug therapy; Z79.82 Long term (current) use of aspirin; Z79.4 Long term (current) use of insulin ==

== ENCOUNTER 2019-11-13 00:24 | Day surgery (SDC) | payer MEDICARE, OTHER | END 2019-11-13 22:53 | disposition home or self-care (01) | LOC: WOUND 00:24 | DX: E11.622 Type 2 diabetes mellitus with other skin ulcer (principal); L97.822 Non-pressure chronic ulcer of other part of left lower leg with fat layer exposed; S81.801D Unspecified open wound, right lower leg, subsequent encounter; E11.51 Type 2 diabetes mellitus with diabetic peripheral angiopathy without gangrene; E11.21 Type 2 diabetes mellitus with diabetic nephropathy; I10 Essential (primary) hypertension; F41.9 Anxiety disorder, unspecified; F32.9 Major depressive disorder, single episode, unspecified; Z79.899 Other long term (current) drug therapy; Z79.82 Long term (current) use of aspirin; Z79.4 Long term (current) use of insulin ==

== ENCOUNTER 2019-11-20 00:14 | Day surgery (SDC) | payer MEDICARE, OTHER | END 2019-11-20 23:22 | disposition home or self-care (01) | LOC: WOUND 00:14 | DX: E11.622 Type 2 diabetes mellitus with other skin ulcer (principal); E11.51 Type 2 diabetes mellitus with diabetic peripheral angiopathy without gangrene; L97.822 Non-pressure chronic ulcer of other part of left lower leg with fat layer exposed; S81.801D Unspecified open wound, right lower leg, subsequent encounter; E11.21 Type 2 diabetes mellitus with diabetic nephropathy; I10 Essential (primary) hypertension; Z79.899 Other long term (current) drug therapy; Z79.82 Long term (current) use of aspirin; Z79.4 Long term (current) use of insulin | CPT/HCPCS: G0463 ==

== ENCOUNTER 2019-11-27 00:26 | Day surgery (SDC) | payer MEDICARE, OTHER | END 2019-11-27 22:47 | disposition home or self-care (01) | LOC: WOUND 00:26 | DX: E11.622 Type 2 diabetes mellitus with other skin ulcer (principal); L97.822 Non-pressure chronic ulcer of other part of left lower leg with fat layer exposed; S81.801D Unspecified open wound, right lower leg, subsequent encounter; I89.0 Lymphedema, not elsewhere classified; E11.21 Type 2 diabetes mellitus with diabetic nephropathy; E11.51 Type 2 diabetes mellitus with diabetic peripheral angiopathy without gangrene; F32.9 Major depressive disorder, single episode, unspecified; F41.9 Anxiety disorder, unspecified; I10 Essential (primary) hypertension; Z89.422 Acquired absence of other left toe(s); Z85.3 Personal history of malignant neoplasm of breast | CPT/HCPCS: G0463 ==

== ENCOUNTER 2019-12-04 00:14 | Day surgery (SDC) | payer MEDICARE, OTHER | END 2019-12-04 23:14 | disposition home or self-care (01) | LOC: WOUND 00:14 | DX: E11.622 Type 2 diabetes mellitus with other skin ulcer (principal); L97.822 Non-pressure chronic ulcer of other part of left lower leg with fat layer exposed; S81.801D Unspecified open wound, right lower leg, subsequent encounter; E11.21 Type 2 diabetes mellitus with diabetic nephropathy; E11.51 Type 2 diabetes mellitus with diabetic peripheral angiopathy without gangrene; I10 Essential (primary) hypertension; F32.9 Major depressive disorder, single episode, unspecified; F41.9 Anxiety disorder, unspecified; Z79.899 Other long term (current) drug therapy; Z79.82 Long term (current) use of aspirin; Z79.4 Long term (current) use of insulin | CPT/HCPCS: G0463 ==

== ENCOUNTER 2019-12-18 00:16 | Day surgery (SDC) | payer MEDICARE, OTHER | END 2019-12-18 22:47 | disposition home or self-care (01) | LOC: WOUND 00:16 | DX: E11.622 Type 2 diabetes mellitus with other skin ulcer (principal); L97.822 Non-pressure chronic ulcer of other part of left lower leg with fat layer exposed; S81.801D Unspecified open wound, right lower leg, subsequent encounter; E11.51 Type 2 diabetes mellitus with diabetic peripheral angiopathy without gangrene; E11.319 Type 2 diabetes mellitus with unspecified diabetic retinopathy without macular edema; E11.21 Type 2 diabetes mellitus with diabetic nephropathy; I10 Essential (primary) hypertension; F41.9 Anxiety disorder, unspecified; F32.9 Major depressive disorder, single episode, unspecified; Z79.899 Other long term (current) drug therapy; Z79.82 Long term (current) use of aspirin; Z79.4 Long term (current) use of insulin ==

== ENCOUNTER 2020-02-12 00:24 | Day surgery (SDC) | payer MEDICARE, OTHER | END 2020-02-12 22:49 | disposition home or self-care (01) | LOC: WOUND 00:24 | DX: E11.622 Type 2 diabetes mellitus with other skin ulcer (principal); L97.822 Non-pressure chronic ulcer of other part of left lower leg with fat layer exposed; L97.812 Non-pressure chronic ulcer of other part of right lower leg with fat layer exposed; E11.621 Type 2 diabetes mellitus with foot ulcer; L97.512 Non-pressure chronic ulcer of other part of right foot with fat layer exposed; L97.521 Non-pressure chronic ulcer of other part of left foot limited to breakdown of skin; S91.301A Unspecified open wound, right foot, initial encounter; E11.21 Type 2 diabetes mellitus with diabetic nephropathy; E11.40 Type 2 diabetes mellitus with diabetic neuropathy, unspecified; E11.319 Type 2 diabetes mellitus with unspecified diabetic retinopathy without macular edema; E11.52 Type 2 diabetes mellitus with diabetic peripheral angiopathy with gangrene; I96 Gangrene, not elsewhere classified; I89.0 Lymphedema, not elsewhere classified; D50.9 Iron deficiency anemia, unspecified; F32.9 Major depressive disorder, single episode, unspecified; I25.10 Atherosclerotic heart disease of native coronary artery without angina pectoris; M34.9 Systemic sclerosis, unspecified; F41.8 Other specified anxiety disorders; Z85.3 Personal history of malignant neoplasm of breast; Z89.422 Acquired absence of other left toe(s); Z79.4 Long term (current) use of insulin; Z79.82 Long term (current) use of aspirin; Z79.899 Other long term (current) drug therapy; X58.XXXA Exposure to other specified factors, initial encounter | CPT/HCPCS: G0463 ==

== ENCOUNTER 2020-02-19 00:12 | Day surgery (SDC) | payer MEDICARE, OTHER | END 2020-02-19 23:13 | disposition home or self-care (01) | LOC: WOUND 00:12 | DX: E11.621 Type 2 diabetes mellitus with foot ulcer (principal); L97.512 Non-pressure chronic ulcer of other part of right foot with fat layer exposed; E11.622 Type 2 diabetes mellitus with other skin ulcer; L97.822 Non-pressure chronic ulcer of other part of left lower leg with fat layer exposed; L97.811 Non-pressure chronic ulcer of other part of right lower leg limited to breakdown of skin; E11.52 Type 2 diabetes mellitus with diabetic peripheral angiopathy with gangrene; I96 Gangrene, not elsewhere classified; E11.319 Type 2 diabetes mellitus with unspecified diabetic retinopathy without macular edema; E11.40 Type 2 diabetes mellitus with diabetic neuropathy, unspecified; I89.0 Lymphedema, not elsewhere classified; D50.9 Iron deficiency anemia, unspecified; I10 Essential (primary) hypertension; F32.9 Major depressive disorder, single episode, unspecified; F41.9 Anxiety disorder, unspecified; F41.8 Other specified anxiety disorders; Z89.422 Acquired absence of other left toe(s); Z85.3 Personal history of malignant neoplasm of breast; Z79.4 Long term (current) use of insulin; Z79.82 Long term (current) use of aspirin; Z79.899 Other long term (current) drug therapy ==

== ENCOUNTER 2020-02-28 23:19 | Emergency (ER) | payer MEDICARE, OTHER ==
[~2020-02-28] VITALS: Ht 175.3 cm; Wt 122.5 kg
[2020-02-29 00:33] LABS: Source, Urine Catheter
[2020-02-29 00:43] LABS: Appearance, Urine Clear (Clear); Bilirubin, Urine Neg (Neg); Blood, Urine 4+ (Neg); Color, Urine Yellow (P-Yellow); Glucose Qualitative, Urine 3+ (Neg); Ketones, Urine Neg (Neg); Leukocyte Esterase, Urine Neg (Neg); Nitrite, Urine Neg (Neg); Protein, Urine 3+ (Neg); Specific Gravity, Urine 1.025 (1.003-1.022); Urobilinogen, Urine 1+ (Normal)
[2020-02-29 00:50] LABS: Bacteria Few /hpf; White Blood Cells, Urine 0-2 /hpf (0-5)
[2020-02-29 00:51] LABS: Amorphous Mod (0-Heavy); Mucus Light (0-Heavy); Squamous Epithelial Cells Not Seen /hpf (Few)
[2020-02-29] MEDS ORDERED: CEPH500 PO (01:06)
== END 2020-02-29 02:48 | disposition home or self-care (01) ==
LOC: ER 23:19
PROVIDERS: Emergency Medicine
DX: L03.116 Cellulitis of left lower limb (principal); N39.43 Post-void dribbling; Z79.82 Long term (current) use of aspirin; Z79.4 Long term (current) use of insulin; Z79.899 Other long term (current) drug therapy; E11.9 Type 2 diabetes mellitus without complications; I10 Essential (primary) hypertension; E78.5 Hyperlipidemia, unspecified; F32.9 Major depressive disorder, single episode, unspecified; F41.9 Anxiety disorder, unspecified; Z85.3 Personal history of malignant neoplasm of breast
CPT/HCPCS: 51702; 81001; 99283-25; A9270-GY

== ENCOUNTER 2020-03-13 19:24 | Emergency (ER) | payer MEDICARE, OTHER ==
[~2020-03-13] VITALS: Ht 175.3 cm; Wt 122.5 kg
[~2020-03-13 19:24] MED LIST changes: +CEPH500 PO
[2020-03-13 20:00] LABS: BASOPHILS ABSOLUTE AUTO 0.06 K/mm3 (0.00-0.23); BASOPHILS PERCENT AUTO 0 % (0-2); EOSINOPHILS ABSOLUTE AUTO 5.32 K/mm3 (0.00-0.68); EOSINOPHILS PERCENT AUTO 39 % (0-6); Hematocrit 27.8 % (37.0-53.0); Hemoglobin 8.1 g/dL (13.5-17.5); IMMATURE GRAN ABSOLUTE AUTO 0.02 K/mm3 (0.00-0.10); IMMATURE GRAN PERCENT AUTO 0 % (0-1); LYMPHOCYTES ABSOLUTE AUTO 0.77 K/mm3 (0.84-5.20); LYMPHOCYTES PERCENT AUTO 6 % (21-46); MONOCYTES ABSOLUTE AUTO 0.58 K/mm3 (0.16-1.47); MONOCYTES PERCENT AUTO 4 % (4-13); Mean Corpuscular HGB 27.4 pg (26.0-34.0); Mean Corpuscular HGB Conc 29.1 g/dL (31.5-36.5); Mean Corpuscular Volume 94 fL (80-100); Mean Platelet Volume 9.9 fL (9.1-12.4); NEUTROPHILS ABSOLUTE AUTO 6.97 K/mm3 (1.96-9.15); NEUTROPHILS PERCENT AUTO 51 % (41-73); Platelet Count 255 K/mm3 (150-400); RDW Coefficient Variation 15.8 % (11.7-14.2); RDW Standard Deviation 53.7 fL (35.1-46.3); Red Blood Cell Count 2.96 M/mm3 (4.30-5.90); White Blood Cell Count 13.72 K/mm3 (4.00-11.30)
[2020-03-13 20:13] LABS: Albumin, Blood 2.4 g/dL (3.4-5.0); Albumin/Globulin Ratio 0.5 (0.8-1.8); Bilirubin, Total 0.3 mg/dL (0.1-1.0); Bun/Creatinine Ratio 9.1 (12.0-20.0); Calcium, Blood 8.4 mg/dL (8.5-10.1); Creatinine, Blood 1.32 mg/dL (0.60-1.20); Globulin, Blood 4.7 g/dL (2.2-4.0); Potassium, Blood 4.2 mmol/L (3.5-5.5); Total Protein, Blood 7.1 g/dL (6.4-8.2)
[2020-03-13] MEDS ORDERED: Diflucan150 MG PO (20:50)
[2020-03-13] MEDS ORDERED: Cleocin HCl300 MG PO (20:50)
== END 2020-03-13 21:26 | disposition home or self-care (01) ==
LOC: ER 19:24
PROVIDERS: Emergency Medicine
DX: L03.115 Cellulitis of right lower limb (principal); L03.116 Cellulitis of left lower limb; E11.621 Type 2 diabetes mellitus with foot ulcer; L97.529 Non-pressure chronic ulcer of other part of left foot with unspecified severity; B37.9 Candidiasis, unspecified; Z79.4 Long term (current) use of insulin; Z79.82 Long term (current) use of aspirin; Z79.899 Other long term (current) drug therapy; I10 Essential (primary) hypertension; E78.5 Hyperlipidemia, unspecified; F32.9 Major depressive disorder, single episode, unspecified; F41.9 Anxiety disorder, unspecified; Z85.3 Personal history of malignant neoplasm of breast
CPT/HCPCS: 36415; 80053; 85025; A9270

== ENCOUNTER 2020-03-19 00:31 | Day surgery (SDC) | payer MEDICARE, OTHER ==
[~2020-03-19 00:31] MED LIST changes: +Cleocin HCl300 MG PO; +Diflucan150 MG PO
== END 2020-03-19 23:07 | disposition home or self-care (01) ==
LOC: WOUND 00:31
DX: E11.621 Type 2 diabetes mellitus with foot ulcer (principal); L97.512 Non-pressure chronic ulcer of other part of right foot with fat layer exposed; E11.622 Type 2 diabetes mellitus with other skin ulcer; L97.822 Non-pressure chronic ulcer of other part of left lower leg with fat layer exposed; E11.52 Type 2 diabetes mellitus with diabetic peripheral angiopathy with gangrene; I96 Gangrene, not elsewhere classified; E11.319 Type 2 diabetes mellitus with unspecified diabetic retinopathy without macular edema; E11.21 Type 2 diabetes mellitus with diabetic nephropathy; E11.40 Type 2 diabetes mellitus with diabetic neuropathy, unspecified; D50.9 Iron deficiency anemia, unspecified; F32.9 Major depressive disorder, single episode, unspecified; F41.9 Anxiety disorder, unspecified; I10 Essential (primary) hypertension; I89.0 Lymphedema, not elsewhere classified; I25.10 Atherosclerotic heart disease of native coronary artery without angina pectoris; F41.8 Other specified anxiety disorders; Z79.4 Long term (current) use of insulin; Z79.82 Long term (current) use of aspirin; Z79.899 Other long term (current) drug therapy; Z85.3 Personal history of malignant neoplasm of breast; Z89.422 Acquired absence of other left toe(s)
CPT/HCPCS: G0463

== ENCOUNTER 2020-04-01 10:34 | Day surgery (SDC) | payer MEDICARE, OTHER | END 2020-04-02 22:46 | disposition home or self-care (01) | LOC: WOUND 10:34 | DX: E11.622 Type 2 diabetes mellitus with other skin ulcer (principal); E11.21 Type 2 diabetes mellitus with diabetic nephropathy; L97.812 Non-pressure chronic ulcer of other part of right lower leg with fat layer exposed; L97.822 Non-pressure chronic ulcer of other part of left lower leg with fat layer exposed; E11.51 Type 2 diabetes mellitus with diabetic peripheral angiopathy without gangrene; S91.202D Unspecified open wound of left great toe with damage to nail, subsequent encounter; Z79.4 Long term (current) use of insulin; Z79.899 Other long term (current) drug therapy | CPT/HCPCS: G0463 ==

== ENCOUNTER 2020-04-22 08:38 | Day surgery (SDC) | payer MEDICARE, OTHER | END 2020-04-22 23:37 | disposition home or self-care (01) | LOC: WOUND 08:38 | DX: E11.621 Type 2 diabetes mellitus with foot ulcer (principal); L97.512 Non-pressure chronic ulcer of other part of right foot with fat layer exposed; E11.622 Type 2 diabetes mellitus with other skin ulcer; L97.822 Non-pressure chronic ulcer of other part of left lower leg with fat layer exposed; L97.812 Non-pressure chronic ulcer of other part of right lower leg with fat layer exposed; S91.202D Unspecified open wound of left great toe with damage to nail, subsequent encounter; E11.52 Type 2 diabetes mellitus with diabetic peripheral angiopathy with gangrene; I96 Gangrene, not elsewhere classified; I89.0 Lymphedema, not elsewhere classified; E11.21 Type 2 diabetes mellitus with diabetic nephropathy; E11.319 Type 2 diabetes mellitus with unspecified diabetic retinopathy without macular edema; D50.9 Iron deficiency anemia, unspecified; F32.9 Major depressive disorder, single episode, unspecified; I10 Essential (primary) hypertension; I25.10 Atherosclerotic heart disease of native coronary artery without angina pectoris; F41.8 Other specified anxiety disorders; E11.40 Type 2 diabetes mellitus with diabetic neuropathy, unspecified; M10.9 Gout, unspecified; K21.9 Gastro-esophageal reflux disease without esophagitis; Z79.4 Long term (current) use of insulin; Z79.82 Long term (current) use of aspirin; Z79.899 Other long term (current) drug therapy; Z89.422 Acquired absence of other left toe(s); Z85.3 Personal history of malignant neoplasm of breast; Z51.5 Encounter for palliative care; X58.XXXD Exposure to other specified factors, subsequent encounter ==

== ENCOUNTER 2020-05-06 00:20 | Day surgery (SDC) | payer MEDICARE, OTHER | END 2020-05-06 22:55 | disposition home or self-care (01) | LOC: WOUND 00:20 | DX: E11.621 Type 2 diabetes mellitus with foot ulcer (principal); L97.512 Non-pressure chronic ulcer of other part of right foot with fat layer exposed; L97.812 Non-pressure chronic ulcer of other part of right lower leg with fat layer exposed; E11.622 Type 2 diabetes mellitus with other skin ulcer; L97.811 Non-pressure chronic ulcer of other part of right lower leg limited to breakdown of skin; L97.823 Non-pressure chronic ulcer of other part of left lower leg with necrosis of muscle; S91.202D Unspecified open wound of left great toe with damage to nail, subsequent encounter; E11.52 Type 2 diabetes mellitus with diabetic peripheral angiopathy with gangrene; I96 Gangrene, not elsewhere classified; E11.21 Type 2 diabetes mellitus with diabetic nephropathy; E11.319 Type 2 diabetes mellitus with unspecified diabetic retinopathy without macular edema; D50.9 Iron deficiency anemia, unspecified; F32.9 Major depressive disorder, single episode, unspecified; F41.9 Anxiety disorder, unspecified; I10 Essential (primary) hypertension; I89.0 Lymphedema, not elsewhere classified; I25.10 Atherosclerotic heart disease of native coronary artery without angina pectoris; E11.40 Type 2 diabetes mellitus with diabetic neuropathy, unspecified; F41.8 Other specified anxiety disorders; Z89.422 Acquired absence of other left toe(s); Z79.82 Long term (current) use of aspirin; Z79.4 Long term (current) use of insulin; Z79.899 Other long term (current) drug therapy; X58.XXXD Exposure to other specified factors, subsequent encounter ==

== ENCOUNTER 2020-05-20 00:23 | Day surgery (SDC) | payer MEDICARE, OTHER | END 2020-05-20 23:30 | disposition home or self-care (01) | LOC: WOUND 00:23 | DX: E11.622 Type 2 diabetes mellitus with other skin ulcer (principal); L97.823 Non-pressure chronic ulcer of other part of left lower leg with necrosis of muscle; L97.812 Non-pressure chronic ulcer of other part of right lower leg with fat layer exposed; E11.621 Type 2 diabetes mellitus with foot ulcer; L97.512 Non-pressure chronic ulcer of other part of right foot with fat layer exposed; E11.52 Type 2 diabetes mellitus with diabetic peripheral angiopathy with gangrene; I96 Gangrene, not elsewhere classified; E11.40 Type 2 diabetes mellitus with diabetic neuropathy, unspecified; E11.319 Type 2 diabetes mellitus with unspecified diabetic retinopathy without macular edema; D50.9 Iron deficiency anemia, unspecified; F32.9 Major depressive disorder, single episode, unspecified; I10 Essential (primary) hypertension; E11.21 Type 2 diabetes mellitus with diabetic nephropathy; I89.0 Lymphedema, not elsewhere classified; S91.202D Unspecified open wound of left great toe with damage to nail, subsequent encounter; I25.10 Atherosclerotic heart disease of native coronary artery without angina pectoris; F41.8 Other specified anxiety disorders; Z89.422 Acquired absence of other left toe(s); Z79.82 Long term (current) use of aspirin; Z79.4 Long term (current) use of insulin; Z79.899 Other long term (current) drug therapy; X58.XXXD Exposure to other specified factors, subsequent encounter ==

== ENCOUNTER 2020-06-03 00:20 | Day surgery (SDC) | payer MEDICARE, OTHER | END 2020-06-03 23:06 | disposition home or self-care (01) | LOC: WOUND 00:20 | DX: E11.621 Type 2 diabetes mellitus with foot ulcer (principal); L97.512 Non-pressure chronic ulcer of other part of right foot with fat layer exposed; E11.52 Type 2 diabetes mellitus with diabetic peripheral angiopathy with gangrene; I96 Gangrene, not elsewhere classified; E11.622 Type 2 diabetes mellitus with other skin ulcer; L97.819 Non-pressure chronic ulcer of other part of right lower leg with unspecified severity; E11.319 Type 2 diabetes mellitus with unspecified diabetic retinopathy without macular edema; D50.9 Iron deficiency anemia, unspecified; F32.9 Major depressive disorder, single episode, unspecified; I10 Essential (primary) hypertension; I89.0 Lymphedema, not elsewhere classified; I25.10 Atherosclerotic heart disease of native coronary artery without angina pectoris; E11.40 Type 2 diabetes mellitus with diabetic neuropathy, unspecified; F41.8 Other specified anxiety disorders; Z79.82 Long term (current) use of aspirin; Z79.4 Long term (current) use of insulin; Z79.899 Other long term (current) drug therapy; Z89.422 Acquired absence of other left toe(s) | CPT/HCPCS: G0463 ==

== ENCOUNTER 2020-06-24 00:24 | Day surgery (SDC) | payer MEDICARE, OTHER ==
[~2020-06-24 00:24] MED LIST changes: -BASAGLAR K100 UNIT/1 SC; +BASAGLAR K100 UNIT/6 SC; +HUMALOG KW100 UNIT/1 SC; -HUMALOG KW200 UNIT/1 SC
[2020-12-29] MEDS ORDERED: IRON18 MG PO (12:39)
[2020-12-29] MEDS ORDERED: ALLOPURINOL100 M1 PO (12:39)
[2020-12-29] MEDS ORDERED: BASAGLAR K100 UNIT/3 SC (13:12)
[2020-12-29] MEDS ORDERED: FERSU300 PO (13:13)
[2020-12-29] MEDS ORDERED: TAMSULOSIN HCL0.4 M1 PO (13:14)
[2020-12-29] MEDS ORDERED: RANOLAZINE PO (13:14)
[2020-12-29] MEDS ORDERED: LISI20 PO (13:15)
[2020-12-29] MEDS ORDERED: DILTIAZEM HCL120 M2 PO (13:15)
== END 2020-06-24 23:35 | disposition home or self-care (01) ==
LOC: WOUND 00:24
DX: E11.621 Type 2 diabetes mellitus with foot ulcer (principal); E11.622 Type 2 diabetes mellitus with other skin ulcer; E11.21 Type 2 diabetes mellitus with diabetic nephropathy; E11.319 Type 2 diabetes mellitus with unspecified diabetic retinopathy without macular edema; L97.512 Non-pressure chronic ulcer of other part of right foot with fat layer exposed; L97.825 Non-pressure chronic ulcer of other part of left lower leg with muscle involvement without evidence of necrosis; I87.2 Venous insufficiency (chronic) (peripheral); I89.0 Lymphedema, not elsewhere classified; I10 Essential (primary) hypertension; I73.9 Peripheral vascular disease, unspecified; D50.9 Iron deficiency anemia, unspecified; Z85.3 Personal history of malignant neoplasm of breast; Z89.422 Acquired absence of other left toe(s); Z79.82 Long term (current) use of aspirin; Z79.4 Long term (current) use of insulin
CPT/HCPCS: G0463

== ENCOUNTER 2020-07-01 00:17 | Day surgery (SDC) | payer MEDICARE, OTHER ==
[2020-12-29] MEDS ORDERED: IRON18 MG PO (12:39)
[2020-12-29] MEDS ORDERED: ALLOPURINOL100 M1 PO (12:39)
[2020-12-29] MEDS ORDERED: BASAGLAR K100 UNIT/3 SC (13:12)
[2020-12-29] MEDS ORDERED: FERSU300 PO (13:13)
[2020-12-29] MEDS ORDERED: TAMSULOSIN HCL0.4 M1 PO (13:14)
[2020-12-29] MEDS ORDERED: RANOLAZINE PO (13:14)
[2020-12-29] MEDS ORDERED: LISI20 PO (13:15)
[2020-12-29] MEDS ORDERED: DILTIAZEM HCL120 M2 PO (13:15)
== END 2020-07-01 23:59 | disposition home or self-care (01) ==
LOC: WOUND 00:17
DX: E11.621 Type 2 diabetes mellitus with foot ulcer (principal); L97.512 Non-pressure chronic ulcer of other part of right foot with fat layer exposed; E11.622 Type 2 diabetes mellitus with other skin ulcer; L97.822 Non-pressure chronic ulcer of other part of left lower leg with fat layer exposed; E11.52 Type 2 diabetes mellitus with diabetic peripheral angiopathy with gangrene; I96 Gangrene, not elsewhere classified; I89.0 Lymphedema, not elsewhere classified; E11.319 Type 2 diabetes mellitus with unspecified diabetic retinopathy without macular edema; E11.21 Type 2 diabetes mellitus with diabetic nephropathy; D50.9 Iron deficiency anemia, unspecified; F32.9 Major depressive disorder, single episode, unspecified; I10 Essential (primary) hypertension; I25.10 Atherosclerotic heart disease of native coronary artery without angina pectoris; E11.40 Type 2 diabetes mellitus with diabetic neuropathy, unspecified; F41.8 Other specified anxiety disorders; Z89.422 Acquired absence of other left toe(s); Z79.4 Long term (current) use of insulin; Z79.82 Long term (current) use of aspirin; Z79.899 Other long term (current) drug therapy
CPT/HCPCS: A9270

== ENCOUNTER 2020-07-08 01:32 | Day surgery (SDC) | payer MEDICARE, OTHER ==
[2020-12-29] MEDS ORDERED: ALLOPURINOL100 M1 PO (12:39)
[2020-12-29] MEDS ORDERED: IRON18 MG PO (12:39)
[2020-12-29] MEDS ORDERED: BASAGLAR K100 UNIT/3 SC (13:12)
[2020-12-29] MEDS ORDERED: FERSU300 PO (13:13)
[2020-12-29] MEDS ORDERED: RANOLAZINE PO (13:14)
[2020-12-29] MEDS ORDERED: TAMSULOSIN HCL0.4 M1 PO (13:14)
[2020-12-29] MEDS ORDERED: DILTIAZEM HCL120 M2 PO (13:15)
[2020-12-29] MEDS ORDERED: LISI20 PO (13:15)
== END 2020-07-08 22:42 | disposition home or self-care (01) ==
LOC: WOUND 01:32
DX: E11.622 Type 2 diabetes mellitus with other skin ulcer (principal); E11.621 Type 2 diabetes mellitus with foot ulcer; L97.822 Non-pressure chronic ulcer of other part of left lower leg with fat layer exposed; L97.812 Non-pressure chronic ulcer of other part of right lower leg with fat layer exposed; L97.419 Non-pressure chronic ulcer of right heel and midfoot with unspecified severity; E11.51 Type 2 diabetes mellitus with diabetic peripheral angiopathy without gangrene; I73.9 Peripheral vascular disease, unspecified; E11.21 Type 2 diabetes mellitus with diabetic nephropathy
CPT/HCPCS: A9270

== ENCOUNTER 2020-07-15 00:29 | Day surgery (SDC) | payer MEDICARE, OTHER ==
[2020-12-29] MEDS ORDERED: IRON18 MG PO (12:39)
[2020-12-29] MEDS ORDERED: ALLOPURINOL100 M1 PO (12:39)
[2020-12-29] MEDS ORDERED: BASAGLAR K100 UNIT/3 SC (13:12)
[2020-12-29] MEDS ORDERED: FERSU300 PO (13:13)
[2020-12-29] MEDS ORDERED: RANOLAZINE PO (13:14)
[2020-12-29] MEDS ORDERED: TAMSULOSIN HCL0.4 M1 PO (13:14)
[2020-12-29] MEDS ORDERED: DILTIAZEM HCL120 M2 PO (13:15)
[2020-12-29] MEDS ORDERED: LISI20 PO (13:15)
== END 2020-07-15 23:34 | disposition home or self-care (01) ==
LOC: WOUND 00:29
DX: E11.622 Type 2 diabetes mellitus with other skin ulcer (principal); E11.621 Type 2 diabetes mellitus with foot ulcer; L97.822 Non-pressure chronic ulcer of other part of left lower leg with fat layer exposed; L97.412 Non-pressure chronic ulcer of right heel and midfoot with fat layer exposed; E11.319 Type 2 diabetes mellitus with unspecified diabetic retinopathy without macular edema; E11.21 Type 2 diabetes mellitus with diabetic nephropathy; I10 Essential (primary) hypertension; D50.9 Iron deficiency anemia, unspecified; F32.9 Major depressive disorder, single episode, unspecified; F41.9 Anxiety disorder, unspecified; I73.9 Peripheral vascular disease, unspecified; I89.0 Lymphedema, not elsewhere classified; Z85.3 Personal history of malignant neoplasm of breast; Z89.422 Acquired absence of other left toe(s)

== ENCOUNTER 2020-07-22 00:22 | Day surgery (SDC) | payer MEDICARE, OTHER ==
[2020-12-29] MEDS ORDERED: ALLOPURINOL100 M1 PO (12:39)
[2020-12-29] MEDS ORDERED: IRON18 MG PO (12:39)
[2020-12-29] MEDS ORDERED: BASAGLAR K100 UNIT/3 SC (13:12)
[2020-12-29] MEDS ORDERED: FERSU300 PO (13:13)
[2020-12-29] MEDS ORDERED: RANOLAZINE PO (13:14)
[2020-12-29] MEDS ORDERED: TAMSULOSIN HCL0.4 M1 PO (13:14)
[2020-12-29] MEDS ORDERED: DILTIAZEM HCL120 M2 PO (13:15)
[2020-12-29] MEDS ORDERED: LISI20 PO (13:15)
== END 2020-07-22 23:45 | disposition home or self-care (01) ==
LOC: WOUND 00:22
DX: E11.621 Type 2 diabetes mellitus with foot ulcer (principal); L97.511 Non-pressure chronic ulcer of other part of right foot limited to breakdown of skin; E11.622 Type 2 diabetes mellitus with other skin ulcer; L97.822 Non-pressure chronic ulcer of other part of left lower leg with fat layer exposed; E11.319 Type 2 diabetes mellitus with unspecified diabetic retinopathy without macular edema; E11.21 Type 2 diabetes mellitus with diabetic nephropathy; E11.51 Type 2 diabetes mellitus with diabetic peripheral angiopathy without gangrene; I89.0 Lymphedema, not elsewhere classified; D50.9 Iron deficiency anemia, unspecified; I10 Essential (primary) hypertension; Z85.3 Personal history of malignant neoplasm of breast

== ENCOUNTER 2020-07-29 00:37 | Day surgery (SDC) | payer MEDICARE, OTHER ==
[2020-12-29] MEDS ORDERED: ALLOPURINOL100 M1 PO (12:39)
[2020-12-29] MEDS ORDERED: IRON18 MG PO (12:39)
[2020-12-29] MEDS ORDERED: BASAGLAR K100 UNIT/3 SC (13:12)
[2020-12-29] MEDS ORDERED: FERSU300 PO (13:13)
[2020-12-29] MEDS ORDERED: RANOLAZINE PO (13:14)
[2020-12-29] MEDS ORDERED: TAMSULOSIN HCL0.4 M1 PO (13:14)
[2020-12-29] MEDS ORDERED: DILTIAZEM HCL120 M2 PO (13:15)
[2020-12-29] MEDS ORDERED: LISI20 PO (13:15)
== END 2020-07-29 22:51 | disposition home or self-care (01) ==
LOC: WOUND 00:37
DX: E11.622 Type 2 diabetes mellitus with other skin ulcer (principal); E11.621 Type 2 diabetes mellitus with foot ulcer; L97.922 Non-pressure chronic ulcer of unspecified part of left lower leg with fat layer exposed; L97.822 Non-pressure chronic ulcer of other part of left lower leg with fat layer exposed; E11.51 Type 2 diabetes mellitus with diabetic peripheral angiopathy without gangrene; E11.21 Type 2 diabetes mellitus with diabetic nephropathy; I89.0 Lymphedema, not elsewhere classified; E11.319 Type 2 diabetes mellitus with unspecified diabetic retinopathy without macular edema; I10 Essential (primary) hypertension; D50.9 Iron deficiency anemia, unspecified; Z89.422 Acquired absence of other left toe(s)
CPT/HCPCS: G0463

== ENCOUNTER 2020-08-05 00:32 | Day surgery (SDC) | payer MEDICARE, OTHER ==
[2020-12-29] MEDS ORDERED: ALLOPURINOL100 M1 PO (12:39)
[2020-12-29] MEDS ORDERED: IRON18 MG PO (12:39)
[2020-12-29] MEDS ORDERED: BASAGLAR K100 UNIT/3 SC (13:12)
[2020-12-29] MEDS ORDERED: FERSU300 PO (13:13)
[2020-12-29] MEDS ORDERED: RANOLAZINE PO (13:14)
[2020-12-29] MEDS ORDERED: TAMSULOSIN HCL0.4 M1 PO (13:14)
[2020-12-29] MEDS ORDERED: DILTIAZEM HCL120 M2 PO (13:15)
[2020-12-29] MEDS ORDERED: LISI20 PO (13:15)
== END 2020-08-05 23:52 | disposition home or self-care (01) ==
LOC: WOUND 00:32
DX: E11.622 Type 2 diabetes mellitus with other skin ulcer (principal); L97.822 Non-pressure chronic ulcer of other part of left lower leg with fat layer exposed; E11.51 Type 2 diabetes mellitus with diabetic peripheral angiopathy without gangrene; E11.21 Type 2 diabetes mellitus with diabetic nephropathy; E11.621 Type 2 diabetes mellitus with foot ulcer; I89.0 Lymphedema, not elsewhere classified; E11.319 Type 2 diabetes mellitus with unspecified diabetic retinopathy without macular edema; D50.9 Iron deficiency anemia, unspecified; Z85.3 Personal history of malignant neoplasm of breast; Z89.422 Acquired absence of other left toe(s)
CPT/HCPCS: A9270; G0463

== ENCOUNTER 2020-08-11 00:45 | Day surgery (SDC) | payer MEDICARE, OTHER ==
[2020-12-29] MEDS ORDERED: ALLOPURINOL100 M1 PO (12:39)
[2020-12-29] MEDS ORDERED: IRON18 MG PO (12:39)
[2020-12-29] MEDS ORDERED: BASAGLAR K100 UNIT/3 SC (13:12)
[2020-12-29] MEDS ORDERED: FERSU300 PO (13:13)
[2020-12-29] MEDS ORDERED: TAMSULOSIN HCL0.4 M1 PO (13:14)
[2020-12-29] MEDS ORDERED: RANOLAZINE PO (13:14)
[2020-12-29] MEDS ORDERED: LISI20 PO (13:15)
[2020-12-29] MEDS ORDERED: DILTIAZEM HCL120 M2 PO (13:15)
== END 2020-08-11 22:50 | disposition home or self-care (01) ==
LOC: WOUND 00:45
DX: E11.622 Type 2 diabetes mellitus with other skin ulcer (principal); L97.822 Non-pressure chronic ulcer of other part of left lower leg with fat layer exposed; E11.51 Type 2 diabetes mellitus with diabetic peripheral angiopathy without gangrene; E11.21 Type 2 diabetes mellitus with diabetic nephropathy; I89.0 Lymphedema, not elsewhere classified; E11.621 Type 2 diabetes mellitus with foot ulcer; L97.509 Non-pressure chronic ulcer of other part of unspecified foot with unspecified severity

== ENCOUNTER 2020-08-19 00:15 | Day surgery (SDC) | payer MEDICARE, OTHER ==
[2020-12-29] MEDS ORDERED: IRON18 MG PO (12:39)
[2020-12-29] MEDS ORDERED: ALLOPURINOL100 M1 PO (12:39)
[2020-12-29] MEDS ORDERED: BASAGLAR K100 UNIT/3 SC (13:12)
[2020-12-29] MEDS ORDERED: FERSU300 PO (13:13)
[2020-12-29] MEDS ORDERED: RANOLAZINE PO (13:14)
[2020-12-29] MEDS ORDERED: TAMSULOSIN HCL0.4 M1 PO (13:14)
[2020-12-29] MEDS ORDERED: DILTIAZEM HCL120 M2 PO (13:15)
[2020-12-29] MEDS ORDERED: LISI20 PO (13:15)
== END 2020-08-19 23:04 | disposition home or self-care (01) ==
LOC: WOUND 00:15
DX: E11.622 Type 2 diabetes mellitus with other skin ulcer (principal); L97.822 Non-pressure chronic ulcer of other part of left lower leg with fat layer exposed; E11.51 Type 2 diabetes mellitus with diabetic peripheral angiopathy without gangrene; I89.0 Lymphedema, not elsewhere classified; E11.40 Type 2 diabetes mellitus with diabetic neuropathy, unspecified; E11.319 Type 2 diabetes mellitus with unspecified diabetic retinopathy without macular edema; I10 Essential (primary) hypertension; Z85.3 Personal history of malignant neoplasm of breast; Z89.422 Acquired absence of other left toe(s)

== ENCOUNTER 2020-08-26 00:25 | Day surgery (SDC) | payer MEDICARE, OTHER ==
[2020-12-29] MEDS ORDERED: IRON18 MG PO (12:39)
[2020-12-29] MEDS ORDERED: ALLOPURINOL100 M1 PO (12:39)
[2020-12-29] MEDS ORDERED: BASAGLAR K100 UNIT/3 SC (13:12)
[2020-12-29] MEDS ORDERED: FERSU300 PO (13:13)
[2020-12-29] MEDS ORDERED: TAMSULOSIN HCL0.4 M1 PO (13:14)
[2020-12-29] MEDS ORDERED: RANOLAZINE PO (13:14)
[2020-12-29] MEDS ORDERED: DILTIAZEM HCL120 M2 PO (13:15)
[2020-12-29] MEDS ORDERED: LISI20 PO (13:15)
== END 2020-08-26 22:59 | disposition home or self-care (01) ==
LOC: WOUND 00:25
DX: E11.622 Type 2 diabetes mellitus with other skin ulcer (principal); E11.621 Type 2 diabetes mellitus with foot ulcer; L97.822 Non-pressure chronic ulcer of other part of left lower leg with fat layer exposed; L97.519 Non-pressure chronic ulcer of other part of right foot with unspecified severity; I89.0 Lymphedema, not elsewhere classified; E11.319 Type 2 diabetes mellitus with unspecified diabetic retinopathy without macular edema; E11.51 Type 2 diabetes mellitus with diabetic peripheral angiopathy without gangrene; E11.21 Type 2 diabetes mellitus with diabetic nephropathy; I10 Essential (primary) hypertension; Z89.422 Acquired absence of other left toe(s); Z85.3 Personal history of malignant neoplasm of breast
CPT/HCPCS: A9270

== ENCOUNTER 2020-09-02 00:22 | Day surgery (SDC) | payer MEDICARE, OTHER ==
[2020-12-29] MEDS ORDERED: IRON18 MG PO (12:39)
[2020-12-29] MEDS ORDERED: ALLOPURINOL100 M1 PO (12:39)
[2020-12-29] MEDS ORDERED: BASAGLAR K100 UNIT/3 SC (13:12)
[2020-12-29] MEDS ORDERED: FERSU300 PO (13:13)
[2020-12-29] MEDS ORDERED: TAMSULOSIN HCL0.4 M1 PO (13:14)
[2020-12-29] MEDS ORDERED: RANOLAZINE PO (13:14)
[2020-12-29] MEDS ORDERED: DILTIAZEM HCL120 M2 PO (13:15)
[2020-12-29] MEDS ORDERED: LISI20 PO (13:15)
== END 2020-09-02 23:00 | disposition home or self-care (01) ==
LOC: WOUND 00:22
DX: E11.622 Type 2 diabetes mellitus with other skin ulcer (principal); L97.822 Non-pressure chronic ulcer of other part of left lower leg with fat layer exposed; E11.621 Type 2 diabetes mellitus with foot ulcer; L97.519 Non-pressure chronic ulcer of other part of right foot with unspecified severity; E11.51 Type 2 diabetes mellitus with diabetic peripheral angiopathy without gangrene; I89.0 Lymphedema, not elsewhere classified; E11.21 Type 2 diabetes mellitus with diabetic nephropathy; E11.319 Type 2 diabetes mellitus with unspecified diabetic retinopathy without macular edema; I10 Essential (primary) hypertension; Z85.3 Personal history of malignant neoplasm of breast; Z89.422 Acquired absence of other left toe(s)

== ENCOUNTER 2020-09-16 00:21 | Day surgery (SDC) | payer MEDICARE, OTHER ==
[2020-12-29] MEDS ORDERED: ALLOPURINOL100 M1 PO (12:39)
[2020-12-29] MEDS ORDERED: IRON18 MG PO (12:39)
[2020-12-29] MEDS ORDERED: BASAGLAR K100 UNIT/3 SC (13:12)
[2020-12-29] MEDS ORDERED: FERSU300 PO (13:13)
[2020-12-29] MEDS ORDERED: TAMSULOSIN HCL0.4 M1 PO (13:14)
[2020-12-29] MEDS ORDERED: RANOLAZINE PO (13:14)
[2020-12-29] MEDS ORDERED: LISI20 PO (13:15)
[2020-12-29] MEDS ORDERED: DILTIAZEM HCL120 M2 PO (13:15)
== END 2020-09-16 22:56 | disposition home or self-care (01) ==
LOC: WOUND 00:21
DX: E11.622 Type 2 diabetes mellitus with other skin ulcer (principal); L97.312 Non-pressure chronic ulcer of right ankle with fat layer exposed; L97.822 Non-pressure chronic ulcer of other part of left lower leg with fat layer exposed; L85.9 Epidermal thickening, unspecified; E11.51 Type 2 diabetes mellitus with diabetic peripheral angiopathy without gangrene; I89.0 Lymphedema, not elsewhere classified; E11.21 Type 2 diabetes mellitus with diabetic nephropathy; E11.319 Type 2 diabetes mellitus with unspecified diabetic retinopathy without macular edema; I10 Essential (primary) hypertension; Z85.3 Personal history of malignant neoplasm of breast; Z89.422 Acquired absence of other left toe(s); Z98.62 Peripheral vascular angioplasty status; Z86.31 Personal history of diabetic foot ulcer

== ENCOUNTER 2020-09-23 03:15 | Inpatient (IN) | payer MEDICARE, OTHER ==
[~2020-09-23] VITALS: Ht 175.3 cm; Wt 120.5 kg
[~2020-09-23 03:15] MED LIST changes: -HUMALOG KW100 UNIT/1 SC; +HUMALOG KW200 UNIT/1 SC
[2020-09-23] MEDS ORDERED: DILT120 PO (03:27)
[2020-09-23 03:40] LABS: BASOPHILS ABSOLUTE AUTO 0.05 K/mm3 (0.00-0.23); BASOPHILS PERCENT AUTO 1 % (0-2); EOSINOPHILS ABSOLUTE AUTO 0.72 K/mm3 (0.00-0.68); EOSINOPHILS PERCENT AUTO 10 % (0-6); Hematocrit 31.6 % (37.0-53.0); Hemoglobin 9.7 g/dL (13.5-17.5); IMMATURE GRAN ABSOLUTE AUTO 0.03 K/mm3 (0.00-0.10); IMMATURE GRAN PERCENT AUTO 0 % (0-1); LYMPHOCYTES ABSOLUTE AUTO 1.26 K/mm3 (0.84-5.20); LYMPHOCYTES PERCENT AUTO 18 % (21-46); MONOCYTES ABSOLUTE AUTO 0.43 K/mm3 (0.16-1.47); MONOCYTES PERCENT AUTO 6 % (4-13); Mean Corpuscular HGB 26.5 pg (26.0-34.0); Mean Corpuscular HGB Conc 30.7 g/dL (31.5-36.5); Mean Corpuscular Volume 86 fL (80-100); Mean Platelet Volume 10.9 fL (9.1-12.4); NEUTROPHILS ABSOLUTE AUTO 4.65 K/mm3 (1.96-9.15); NEUTROPHILS PERCENT AUTO 65 % (41-73); Platelet Count 193 K/mm3 (150-400); RDW Coefficient Variation 15.4 % (11.7-14.2); RDW Standard Deviation 48.6 fL (35.1-46.3); Red Blood Cell Count 3.66 M/mm3 (4.30-5.90); White Blood Cell Count 7.14 K/mm3 (4.00-11.30)
[2020-09-23 03:50] LABS: Calcium, Ionized (POC) 1.15 mmol/L (1.10-1.46); Chloride (POC) 97 mmol/L (98-108); Creatinine (POC) 1.7 mg/dL (0.8-1.3); Glucose (ISTAT POC) 441 mg/dL (70-99); Hemoglobin (POC) 11.6 g/dL (13.5-17.5); Potassium (POC) 4.6 mmol/L (3.5-5.5); Sodium (POC) 137 mmol/L (135-148); Total CO2 (POC) 32 mmol/L (21-32)
[2020-09-23 03:57] LABS: International Normalized Ratio 0.99; Prothrombin Time Results 10.6 Sec (9.7-11.5)
[2020-09-23 03:59] LABS: Alanine Aminotransfer (ALT/SGP 18 U/L (12-78); Albumin, Blood 2.9 g/dL (3.4-5.0); Albumin/Globulin Ratio 0.6 (0.8-1.8); Alk Phos 191 U/L (50-136); Anion Gap 6 mmol/L (6-16); Aspartate Aminotrans (AST/SGOT 9 U/L (12-37); Bilirubin, Total 0.4 mg/dL (0.1-1.0); Blood Urea Nitrogen 12 mg/dL (8-24); Bun/Creatinine Ratio 8.4 (12.0-20.0); CO2, Blood 28 mmol/L (21-32); Calcium, Blood 8.3 mg/dL (8.5-10.1); Chloride, Blood 102 mmol/L (98-108); Creatinine, Blood 1.43 mg/dL (0.60-1.20); Globulin, Blood 4.9 g/dL (2.2-4.0); Glomerular Filtration Rate 54 (60-); Glucose, Blood 442 mg/dL (70-99); Potassium, Blood 4.4 mmol/L (3.5-5.5); Sodium, Blood 136 mmol/L (136-145); Total Protein, Blood 7.8 g/dL (6.4-8.2); Troponin I <0.015 ng/mL (0.000-0.040)
[2020-09-23 13:30] LABS: CPK Creatine Kinase 114 U/L (39-308); Troponin I <0.015 ng/mL (0.000-0.040)
--- NOTE | 2020-09-23 15:07 | NUR ---
ADMIT: 09/23/20 DISCHARGE: DX: HTN, CP CC:kwilcox HONEY CALL: RESIDENCE: Home, self CAREGIVER: self, SANDY PINZON (PARENT) DX: CAD, HTN, GERD, tremor, see list DME: DM supplies, diabetic shoes, circaid juxta-lite legging CCM: referral 07/2019; 03/2019 HOME HEALTH: [facility] SUMMARY: Admit: 09/23/20 09/23/20- per chart review with Dr. Shah, pt plan is do perform trend troponins and pt will need stress test either as inpt or outpt. Wound care was ordered for pt's leg wounds. Pt was admitted to PCU.-chica
--- NOTE | 2020-09-23 19:36 | NUR ---
SHIFT SUMMARY PATIENT ARRIVED TO UNIT FROM ED VIA GURNEY, TRANSFERED VIA SLIDER SHEET. PATIENT IS ALERT AND ORIENTED, COOPERATIVE WITH CARE. PATIENT DENIES CHEST PAIN/PRESSURE. PATIENT REMAINS HYPERTENSIVE THIS SHIFT, HYDRALAZINE Q6 GIVEN, NO IMPROVEMENT IN BP NOTED. DR. LÓPEZ NOTIFIED, ORDERS FOR HYDRALAZINE Q2 GIVEN AND PROCARDIA ONE TIME. BLOOD SUGAR WAS ELEVATED THIS SHIFT, AT LAST CHECK DOWN FROM 300s TO 200s. BLE WOUNDS DRESSED WITH GAUZE, PICTURES TAKEN AND DOCUMENTED IN CHART.
[2020-09-23 19:43] LABS: CPK Creatine Kinase 127 U/L (39-308); Troponin I <0.015 ng/mL (0.000-0.040)
[2020-09-24 04:19] LABS: BASOPHILS ABSOLUTE AUTO 0.03 K/mm3 (0.00-0.23); BASOPHILS PERCENT AUTO 0 % (0-2); EOSINOPHILS ABSOLUTE AUTO 0.68 K/mm3 (0.00-0.68); EOSINOPHILS PERCENT AUTO 10 % (0-6); Hemoglobin 9.1 g/dL (13.5-17.5); IMMATURE GRAN ABSOLUTE AUTO 0.03 K/mm3 (0.00-0.10); IMMATURE GRAN PERCENT AUTO 0 % (0-1); LYMPHOCYTES ABSOLUTE AUTO 1.15 K/mm3 (0.84-5.20); LYMPHOCYTES PERCENT AUTO 16 % (21-46); MONOCYTES ABSOLUTE AUTO 0.34 K/mm3 (0.16-1.47); MONOCYTES PERCENT AUTO 5 % (4-13); Mean Corpuscular HGB 27.2 pg (26.0-34.0); Mean Corpuscular HGB Conc 31.4 g/dL (31.5-36.5); Mean Corpuscular Volume 87 fL (80-100); Mean Platelet Volume 10.8 fL (9.1-12.4); NEUTROPHILS PERCENT AUTO 69 % (41-73); Platelet Count 185 K/mm3 (150-400); RDW Coefficient Variation 15.7 % (11.7-14.2); RDW Standard Deviation 49.5 fL (35.1-46.3); Red Blood Cell Count 3.34 M/mm3 (4.30-5.90); White Blood Cell Count 7.13 K/mm3 (4.00-11.30)
[2020-09-24 04:43] LABS: Alanine Aminotransfer (ALT/SGP 12 U/L (12-78); Albumin, Blood 2.5 g/dL (3.4-5.0); Albumin/Globulin Ratio 0.6 (0.8-1.8); Alk Phos 134 U/L (50-136); Anion Gap 5 mmol/L (6-16); Aspartate Aminotrans (AST/SGOT 9 U/L (12-37); Bilirubin, Total 0.4 mg/dL (0.1-1.0); Blood Urea Nitrogen 13 mg/dL (8-24); Bun/Creatinine Ratio 8.3 (12.0-20.0); CHOL/HDL RATIO 4.5; CO2, Blood 29 mmol/L (21-32); Calcium, Blood 8.5 mg/dL (8.5-10.1); Chloride, Blood 106 mmol/L (98-108); Cholesterol 153 mg/dL (50-200); Creatinine, Blood 1.56 mg/dL (0.60-1.20); Globulin, Blood 4.4 g/dL (2.2-4.0); Glomerular Filtration Rate 49 (60-); Glucose, Blood 189 mg/dL (70-99); HDL Cholesterol 34 mg/dL (>39); LDL/HDL RATIO 2.3; Low Density Lipoprotein Chol 77 mg/dL (0-110); Magnesium, Blood 1.9 mg/dL (1.6-2.4); Potassium, Blood 4.2 mmol/L (3.5-5.5); Sodium, Blood 140 mmol/L (136-145); Total Protein, Blood 6.9 g/dL (6.4-8.2); Triglycerides 209 mg/dL (30-160); Very Low Density Lipoprot Chol 41 mg/dL (6-32)
--- NOTE | 2020-09-24 05:10 | NUR ---
SHIFT SUMMARY PATIENT IS ALERT AND ORIENTED. SBA WITH FWW TO THE BATHROOM. SLEPT MOST THE NIGHT. BLOOD PRESSURE STABLE THROUGHOUT THE NIGHT, LAST BP 152/89. 02 SATS >95% ON RA. PATIENT DENIES CP/PRESSURE. PATIENT BECAME NAUSEOUS AND VOMITED A SMALL AMOUNT AT APPROX @0430, MEDICATED PER EMAR. PT NPO @ MIDNIGHT. VSS, NO ACUTE CHANGES. CALL LIGHT IN REACH.
--- NOTE | 2020-09-24 13:47 | NUR ---
09/24/20- per assessment done while pt was in ER, pt lives with family and has been doing wound care through [facility]. He will need a resumption of care for home health at d/c. Pt will have a ride home with his family. An echo and nuc stress test was ordered for the pt to complete today prior to d/c. Per conversation with Dr. Shah, pt could potentially be d/c home today. Per chart review with Dr. Shah, pt will not be d/c today. is going to have cardiology come and do consult because pt has had nausea and potentially needs a heart cath for stenosis of RCA. Pt also has ulcer on his left leg. Discussed with Dr. Shah about putting in an order for resumption of care with [facility]. Spoke with pt who reports that he was seeing wound care every 2 weeks and [facility] for leg wounds. Pt identified that when he is stable for d/c, that his dad will be able to come get him and take him home. Pt lives with his parents but they are not able to help with his care due to their advanced age. Pt reports that he needs help with injecting insulin due to underlying tremors. Pt stated that his monitor broke and he was checking his blood sugars 3 times a week. Pt would like to get a continuous monitor and he believes that his insurance will pay for one. Printed off application and provided to pt. Also requested Dr. Shah to put a referral in to see Dr. Strong for DM management.-chica
--- NOTE | 2020-09-24 18:23 | NUR ---
SHIFT SUMMARY PT IS ALERT, ORIENTED, AND COOPERATIVE. GLUCOSE LEVELS HAVE BEEN TRENDING IN THE 200S. BP STABLE THROUGHOUT SHIFT. PT REPORTS NO PAIN AND DENIES CP/PRESSURE. WOUND DRESSINGS CHANGED ON LEFT LEG AND RIGHT HEEL. PT HAS BEEN UP TO HIS TOILET AND CHAIR A COUPLE OF TIMES THROUGHOUT SHIFT. PT TO GO NPO AT MIDNIGHT FOR ANGIO.
--- NOTE | 2020-09-24 19:44 | NUR ---
THIS RN AGREES WITH STUDENT NURSE SHIFT NOTE.
--- NOTE | 2020-09-24 20:32 | NUR ---
patient complaining of loose stools. These have not been visualized by staff. Hat placed in toilet. He is asking for lomotil. Call placed to hospitalist.
--- NOTE | 2020-09-24 20:47 | NUR ---
GI panel ordered by hospitalist. Patient placed in isolation awaiting lab receipt of specimen and results. detonator maker informed
--- NOTE | 2020-09-24 23:19 | NUR ---
LIQUID STOOL SAMPLE SENT TO LAB PER ORDER.
[2020-09-25 01:03] LABS: Adenovirus F 40/41 Not Detected (NOT DETECT); Astrovirus Not Detected (NOT DETECT); Campylobacter Sp Not Detected (NOT DETECT); Cryptosporidium Not Detected (NOT DETECT); Cyclospora Cayetanensis Not Detected (NOT DETECT); E. Coli O157 Not Detected (NOT DETECT); Entamoeba Histolytica Not Detected (NOT DETECT); Enteroaggregative E. coli-EAEC Not Detected (NOT DETECT); Enteropathogenic E. coli-EPEC Not Detected (NOT DETECT); Enterotoxigenic E. coli-ETEC Not Detected (NOT DETECT); Giardia Lamblia Not Detected (NOT DETECT); Norovirus GI/GII Not Detected (NOT DETECT); Plesiomonas Shigelloides Not Detected (NOT DETECT); Rotavirus A Not Detected (NOT DETECT); Salmonella Sp Not Detected (NOT DETECT); Sapovirus Not Detected (NOT DETECT); Shiga Toxin-prod E. coli-STEC Not Detected (NOT DETECT); Shigella/Enteroin E. coli-EIEC Not Detected (NOT DETECT); Vibrio Cholerae Not Detected (NOT DETECT); Vibrio Sp Not Detected (NOT DETECT); Yersinia Enterocolitica Not Detected (NOT DETECT)
--- NOTE | 2020-09-25 02:39 | NUR ---
patient GI Panel came back positive for C Difficile. Enteric precautions instituted in addition to standart contact precautions. Hospitalist notified and PO Vancomycin ordered for treatment. No chest pain or pressure overnight. Telemetry was Sinus Rhythm 70's. Patient NPO after midnight. Not clear if patient is waiting for the stress portion of his lexiscan or going to the cathlab for an angio with possible PCI.
[2020-09-25 18:41] LABS: BASOPHILS ABSOLUTE AUTO 0.04 K/mm3 (0.00-0.23); BASOPHILS PERCENT AUTO 1 % (0-2); EOSINOPHILS PERCENT AUTO 9 % (0-6); Hematocrit 31.8 % (37.0-53.0); Hemoglobin 9.7 g/dL (13.5-17.5); IMMATURE GRAN ABSOLUTE AUTO 0.04 K/mm3 (0.00-0.10); IMMATURE GRAN PERCENT AUTO 1 % (0-1); LYMPHOCYTES ABSOLUTE AUTO 1.09 K/mm3 (0.84-5.20); LYMPHOCYTES PERCENT AUTO 15 % (21-46); MONOCYTES ABSOLUTE AUTO 0.39 K/mm3 (0.16-1.47); MONOCYTES PERCENT AUTO 5 % (4-13); Mean Corpuscular HGB 26.9 pg (26.0-34.0); Mean Corpuscular HGB Conc 30.5 g/dL (31.5-36.5); Mean Corpuscular Volume 88 fL (80-100); Mean Platelet Volume 10.9 fL (9.1-12.4); NEUTROPHILS ABSOLUTE AUTO 5.21 K/mm3 (1.96-9.15); NEUTROPHILS PERCENT AUTO 70 % (41-73); Platelet Count 205 K/mm3 (150-400); RDW Coefficient Variation 15.8 % (11.7-14.2); RDW Standard Deviation 50.8 fL (35.1-46.3); White Blood Cell Count 7.47 K/mm3 (4.00-11.30)
[2020-09-25 19:01] LABS: Bun/Creatinine Ratio 9.2 (12.0-20.0); Calcium, Blood 8.8 mg/dL (8.5-10.1); Creatinine, Blood 2.28 mg/dL (0.60-1.20); Potassium, Blood 4.4 mmol/L (3.5-5.5)
--- NOTE | 2020-09-25 19:18 | NUR ---
SHIFT SUMMARY NO ACUTE EVENTS THIS SHIFT. PATIENT ALERT AND ORIENTED AND COOPERATIVE WITH CARE, VSS. SECOND DAY OF STRESS TEST COMPLETED TODAY. PATIENT COMPLAINED OF NAUSEA, ZOFRAN GIVEN PER EMAR AND PATIENT ENDORSED RELIEF. PATIENT ON ROOM AIR, INDEPENDENT IN ROOM AND TOLERATING WELL. PATIENT CALLS APPROPRIATELY. DENIED CHEST PAIN/PRESSURE T/O SHIFT. WOUND DRESSINGS IN PLACE, C/D/I.
--- NOTE | 2020-09-26 04:56 | NUR ---
SHIFT SUMMARY PT WAS ALERT, ORIENTED, AND COOPERATIVE WITH CARE. PT WAS INDEPENDENT IN THE ROOM WITH A WALKER. VITALS WERE STABLE. BP WAS CONTROLLED AT 146-127 SYSTOLIC. NO PRN ANTIHYPERTENSIVES GIVEN. HR 70'S. O2 SATS >96% ON ROOM AIR, NO SOB. DRESSING CHANGED ON BLE WOUNDS, PICTURES UPDATED IN CHART. PT AWAKE MOST OF THE NIGHT, USE CALL LIGHT APPROPRIATELY. PT REPORTED HAVING A HEADACHE THIS AM, PRN ACETAMINOPHEN GIVEN WITH RELIEF. PT HAD A QUIET UNEVENTFUL NIGHT.
--- NOTE | 2020-09-26 18:01 | NUR ---
PT SUMMARY: NO ACUTE CHANGE FOR THE SHIFT, VITALS HRR SR 70'S, BP SYSTOLIC 140-160'S, SATS ABOVE 94% ON RA, AFEBRILE. PT HAS BEEN INDEPENDENT IN THE ROOM USES WALKER FOR MOBILITY. PT FOR ANGIO IN AM NPO AFTER MIDNIGHT. DR COX WENT AND SEE PT TODAY. PT DENIES ANY CHEST PAIN/PRESSURE. NO OTHER ISSUES REPORTED FOR THE SHIFT, ABLE TO MAKE NEEDS KNOWN. WILL MONITOR UNTIL THE END OF THE SHIFT.
[2020-09-26 19:34] LABS: Influenza A, PCR NEGATIVE (NEGATIVE); Influenza B, PCR NEGATIVE (NEGATIVE); Resp Syncytial Virus, PCR NEGATIVE (NEGATIVE); SARS-Cov-2 (COVID-19) PCR, MMC NEGATIVE (NEGATIVE)
--- NOTE | 2020-09-27 04:46 | NUR ---
SHIFT SUMMARY PT HAD NO CHANGE FROM PREVIOUS NOC SHIFT. VITALS STABLE WITH BP 140-150'S SYSTOLIC, 70-80'S DIASTOLIC. HR 70-80'S. DENIED ANY CHEST PAIN. O2 SATS >95% ON ROOM AIR. PT INDEPENDENT IN THE ROOM, TOOK A SHOWER. LEG DRESSINGS CHANGED. PT HAS BEEN NPO SINCE MIDNIGHT, READY FOR PROCEDURE THIS AM. HAD A QUIET UNEVENTFUL NIGHT.
--- NOTE | 2020-09-27 13:30 | NUR ---
PT CURRENTLY TAKEN TO [facility] FOR ANGIO PROCEDURE
--- NOTE | 2020-09-27 14:16 | NUR ---
09/27/20- PER CHART REVIEW WITH DR. PEÑA, PT WILL BE HAVING A CATH PROCEDURE TODAY. PENDING HOW THAT TEST GOES, PT COULD BE D/C TOMORROW. NOTIFIED DR. PEÑA THAT PT WILL NEED RESUMPTION OF CARE WITH [facility] AT DISCHARGE. -LUI 09/24/20- PER ASSESSMENT DONE WHILE PT WAS IN ER, PT LIVES WITH FAMILY AND HAS BEEN DOING WOUND CARE THROUGH [facility]. HE WILL NEED A RESUMPTION OF CARE FOR HOME HEALTH AT D/C. PT WILL HAVE A RIDE HOME WITH HIS FAMILY. AN ECHO AND NUC STRESS TEST WAS ORDERED FOR THE PT TO COMPLETE TODAY PRIOR TO D/C. PER CONVERSATION WITH DR. LÓPEZ, PT COULD POTENTIALLY BE D/C HOME TODAY. -LUI
--- NOTE | 2020-09-27 18:17 | NUR ---
PT CAME BACK FROM [facility] POST ANGIO HAD RIGHT RADIAL ACCESS SITE WITH TR BAND ON, NO HEMATOMA/BLEEDING NOTED. VITALS HR 70'S, BP SYSTOLIC ELEVATED UP TO 180'S, SATS ABOVE 92% ON RA, AFEBRILE. PT HAD ONE STENT ON DISTAL LAD, PLAN TO HAVE ANOTHER STENT BUT CAN POSSIBLY GET DONE OUTPATIENT. PT WAS FEELING SICK UPON GETTING BACK TO THE ROOM HAD EMESIS X1, ZOFRAN IV GIVEN AND WAS EFFECTIVE. NO CHEST PAIN REPORTED. PT REFUSED TO EAT DINNER AT THIS TIME. NO OTHER ISSUES AT THIS TIME, ABLE TO MAKE NEEDS KNOWN, WILL REPORT UNTIL THE END OF THE SHIFT
--- NOTE | 2020-09-28 04:04 | NUR ---
SHIFT SUMMARY PT IS POST ANGIO WITH STENT PLACEMENT, ACCESS IN R RADIAL. TR BAND DEFLATED AND OFF. NO DISCOLORATION, PAIN, BLEEDING, OR ADNORMALITIES. CAP REFILL <3SEC. DISTAL TO SITE. PT REPORTS NO CHEST PAIN. BP HYPERTENSIVE 169 SYSTOLIC DOWN TO 158 SYSTOLIC BY AM. PRN ANTIHYPERTENSIVE MEDICATION NOT GIVEN DUE TO BP TRENDING DOWN. HR 70-80'S. O2 SATS >90% ON ROOM AIR. DRESSING CHANGED ON BLE. PT RECOVERING WELL, NO NAUSEA OR PAIN. PT USING URINAL FREQUENTLY T/O THE NIGHT. PT HAD A QUIET UNEVENTFUL NIGHT.
[2020-09-28 09:31] LABS: BASOPHILS ABSOLUTE AUTO 0.03 K/mm3 (0.00-0.23); BASOPHILS PERCENT AUTO 1 % (0-2); EOSINOPHILS ABSOLUTE AUTO 0.36 K/mm3 (0.00-0.68); EOSINOPHILS PERCENT AUTO 8 % (0-6); Hematocrit 29.7 % (37.0-53.0); Hemoglobin 8.8 g/dL (13.5-17.5); IMMATURE GRAN ABSOLUTE AUTO 0.04 K/mm3 (0.00-0.10); IMMATURE GRAN PERCENT AUTO 1 % (0-1); LYMPHOCYTES ABSOLUTE AUTO 0.76 K/mm3 (0.84-5.20); LYMPHOCYTES PERCENT AUTO 16 % (21-46); MONOCYTES ABSOLUTE AUTO 0.31 K/mm3 (0.16-1.47); MONOCYTES PERCENT AUTO 7 % (4-13); Mean Corpuscular HGB 26.9 pg (26.0-34.0); Mean Corpuscular HGB Conc 29.6 g/dL (31.5-36.5); Mean Corpuscular Volume 91 fL (80-100); Mean Platelet Volume 10.6 fL (9.1-12.4); NEUTROPHILS ABSOLUTE AUTO 3.24 K/mm3 (1.96-9.15); NEUTROPHILS PERCENT AUTO 69 % (41-73); Platelet Count 158 K/mm3 (150-400); RDW Coefficient Variation 16.2 % (11.7-14.2); RDW Standard Deviation 53.2 fL (35.1-46.3); Red Blood Cell Count 3.27 M/mm3 (4.30-5.90); White Blood Cell Count 4.74 K/mm3 (4.00-11.30)
--- NOTE | 2020-09-28 10:01 | NUR ---
THIS RN AGREES WITH STUDENT NURSE SHIFT ASSESSMENT DOCUMENTATION.
[2020-09-28 10:16] LABS: Bun/Creatinine Ratio 8.6 (12.0-20.0); Calcium, Blood 8.2 mg/dL (8.5-10.1); Creatinine, Blood 1.85 mg/dL (0.60-1.20); Potassium, Blood 4.2 mmol/L (3.5-5.5)
[2020-09-28] MEDS ORDERED: ACET325 PO (13:06)
[2020-09-28] MEDS ORDERED: CLOP75 PO (13:07)
[2020-09-28] MEDS ORDERED: ATOR40TA PO (13:07)
[2020-09-28] MEDS ORDERED: METO25 PO (13:09)
[2020-09-28] MEDS ORDERED: NIFE30ER PO (13:12)
[2020-09-28] MEDS ORDERED: RANO500T PO (13:13)
--- NOTE | 2020-09-28 13:59 | NUR ---
PATIENT IS ALERT AND ORIENTED, INDEPENDENT IN ROOM. VSS, PATIENT DENIES CHEST PAIN/PRESSURE. PATIENT HAD EPISODE OF NAUSEA THIS MORNING AND ZOFRAN GIVEN, DR. PEÑA NOTIFIED. PATIENT PROVIDED DISCHARGE INFO REGARDING FOLLOW UP PLANS, REASONS TO RETURN TO THE HOSPITAL, MEDICATION INFORMATION, AND POST-ANGIO RADIAL SITE CARE. PATIENT VERBALIZED UNDERSTANDING. NO SIGNS OF DISCHARGE AT ANGIO SITE, NO HEMATOMA NOTED. NO SIGNS OF ACUTE DISTRESS.
--- NOTE | 2020-09-28 15:39 | NUR ---
09/28/20- PER CHART REVIEW WITH DR. PEÑA, PT IS READY TO D.C HOME. PT WOULD LIKE TO BE CALLED AT HOME FOR HONEY CALL, REVIEWED HONEY LETTER AND HE ACKNOWLEDGED UNDERSTANDING. PT'S FATHER WILL BE COMING TO TAKE HIM HOME. PT LIVES WITH HIS PARENTS AND OLDER SISTER AND THEY ARE ABLE TO PROVIDE THE PT ASSISTANCE WITH ANY NEEDS. AT DISCHARGE, A GLUCOMETER AND TEST STRIPS WERE SENT TO HIS PHARMACY AT [facility] FOR HIM TO CASINO BEVERAGE SERVER. HE WAS ADVISED TO LOG HIS BG AND BRING THE LOG TO HIS APPT. PT ACKNOWLEDGED UNDERSTANDING. A PACKET WITH APPLICATION FOR FREESTYLE ANGEL CONTINUOUS MONITOR WAS FAXED TO [facility] [facility] [facility] FOR MONITOR TO BE SENT TO PATIENT. PT ACKNOWLEDGED THAT HIS CHART NOTES WOULD BE SENT AND HE SIGNED AN GENIE. -LUI
== END 2020-09-28 14:36 | disposition home or self-care (01) | DRG 247 ==
LOC: ER 03:15 → ERHOLD 03:16 → PCU 03:16 → ERHOLD 03:16 → PCU 11:43
PROVIDERS: Emergency Medicine; Family Medicine; Internal Medicine; Internal Medicine Interventional Cardiology; Nurse Practitioner Acute Care; ADMIT Internal Medicine
PROC: 027034Z Dilation of Coronary Artery, One Artery with Drug-eluting Intraluminal Device, Percutaneous Approach (ICD-10-PCS; principal; 2020-09-27)
PROC: B2111ZZ Fluoroscopy of Multiple Coronary Arteries using Low Osmolar Contrast (ICD-10-PCS; 2020-09-27)
PROC: 4A023N7 Measurement of Cardiac Sampling and Pressure, Left Heart, Percutaneous Approach (ICD-10-PCS; 2020-09-27)
PROC: 4A033BC Measurement of Arterial Pressure, Coronary, Percutaneous Approach (ICD-10-PCS; 2020-09-27)
PROC: B2111ZZ Fluoroscopy of Multiple Coronary Arteries using Low Osmolar Contrast (ICD-10-PCS; 2020-09-27)
DX: I25.110 Atherosclerotic heart disease of native coronary artery with unstable angina pectoris (principal); I16.1 Hypertensive emergency; I50.32 Chronic diastolic (congestive) heart failure; A04.72 Enterocolitis due to Clostridium difficile, not specified as recurrent; I13.0 Hypertensive heart and chronic kidney disease with heart failure and stage 1 through stage 4 chronic kidney disease, or unspecified chronic kidney disease; N17.9 Acute kidney failure, unspecified; Z20.822 Contact with and (suspected) exposure to COVID-19; E11.22 Type 2 diabetes mellitus with diabetic chronic kidney disease; E78.00 Pure hypercholesterolemia, unspecified; F32.9 Major depressive disorder, single episode, unspecified; N18.30 Chronic kidney disease, stage 3 unspecified; I87.2 Venous insufficiency (chronic) (peripheral); D63.1 Anemia in chronic kidney disease; E11.51 Type 2 diabetes mellitus with diabetic peripheral angiopathy without gangrene; L20.9 Atopic dermatitis, unspecified; E78.5 Hyperlipidemia, unspecified; M10.9 Gout, unspecified; F41.9 Anxiety disorder, unspecified; E11.65 Type 2 diabetes mellitus with hyperglycemia; E11.621 Type 2 diabetes mellitus with foot ulcer; L97.529 Non-pressure chronic ulcer of other part of left foot with unspecified severity; K21.9 Gastro-esophageal reflux disease without esophagitis; E66.9 Obesity, unspecified; I25.2 Old myocardial infarction; Z68.35 Body mass index [BMI] 35.0-35.9, adult; Z89.422 Acquired absence of other left toe(s); Z85.3 Personal history of malignant neoplasm of breast; Z90.13 Acquired absence of bilateral breasts and nipples; Z90.49 Acquired absence of other specified parts of digestive tract; Z98.890 Other specified postprocedural states; Z79.4 Long term (current) use of insulin; Z79.82 Long term (current) use of aspirin; Z79.899 Other long term (current) drug therapy
CPT/HCPCS: 0097U; 0241U; 36415; 71275; 74175; 78452; 80047; 80048; 80053; 80061; 82550; 82947; 83036; 83735; 84100; 84443; 84484; 85014; 85025; 85347; 85610; 85730; 87324; 93005; 93010; 93017; 93306; 93454; 93571; 96372; 96372-59; 96374-59; 96375; 96375-59; 96376; 99152; 99153; 99285-25; A9270; A9270-GY; A9500; C1725; C1769; C1874; C1887; C1894; C9600; G0378; J0280; J0360; J1644; J1650; J1815; J2250; J2405; J2785; J3010; J3246; J7030; J7050; Q9967

== ENCOUNTER 2020-10-02 16:41 | Emergency (ER) | payer MEDICARE, OTHER ==
[~2020-10-02] VITALS: Ht 175.3 cm; Wt 113.4 kg
[~2020-10-02 16:41] MED LIST changes: +CLOP75 PO; +DILT120 PO; +METO25 PO; +NIFE30ER PO; +RANO500T PO
[2020-10-02 17:54] LABS: Albumin/Globulin Ratio 0.6 (0.8-1.8); Bilirubin, Total 0.5 mg/dL (0.1-1.0); Bun/Creatinine Ratio 11.9 (12.0-20.0); Calcium, Blood 8.4 mg/dL (8.5-10.1); Creatinine, Blood 2.1 mg/dL (0.60-1.20); Globulin, Blood 4.8 g/dL (2.2-4.0); Potassium, Blood 5.4 mmol/L (3.5-5.5); Total Protein, Blood 7.8 g/dL (6.4-8.2)
[2020-10-02 18:11] LABS: BASOPHILS ABSOLUTE AUTO 0.03 K/mm3 (0.00-0.23); BASOPHILS PERCENT AUTO 1 % (0-2); EOSINOPHILS ABSOLUTE AUTO 0.57 K/mm3 (0.00-0.68); EOSINOPHILS PERCENT AUTO 10 % (0-6); IMMATURE GRAN ABSOLUTE AUTO 0.02 K/mm3 (0.00-0.10); IMMATURE GRAN PERCENT AUTO 0 % (0-1); LYMPHOCYTES ABSOLUTE AUTO 0.77 K/mm3 (0.84-5.20); LYMPHOCYTES PERCENT AUTO 14 % (21-46); MONOCYTES ABSOLUTE AUTO 0.29 K/mm3 (0.16-1.47); MONOCYTES PERCENT AUTO 5 % (4-13); Mean Corpuscular HGB 27.4 pg (26.0-34.0); Mean Corpuscular Volume 88 fL (80-100); Mean Platelet Volume 11.2 fL (9.1-12.4); NEUTROPHILS ABSOLUTE AUTO 4.04 K/mm3 (1.96-9.15); NEUTROPHILS PERCENT AUTO 71 % (41-73); Platelet Count 157 K/mm3 (150-400); RDW Coefficient Variation 16.3 % (11.7-14.2); Red Blood Cell Count 3.29 M/mm3 (4.30-5.90); White Blood Cell Count 5.72 K/mm3 (4.00-11.30)
[2020-10-02 21:19] LABS: Source, Urine Clean Catch
[2020-10-02 21:21] LABS: Bilirubin, Urine Neg (Neg); Blood, Urine 2+ (Neg); Glucose Qualitative, Urine 2+ (Neg); Ketones, Urine Neg (Neg); Leukocyte Esterase, Urine 1+ (Neg); Nitrite, Urine Neg (Neg); Protein, Urine 4+ (Neg); Specific Gravity, Urine 1.025 (1.003-1.022); Urobilinogen, Urine NORM (Normal)
[2020-10-02 21:23] LABS: Appearance, Urine Clear (Clear); Color, Urine Yellow (P-Yellow)
[2020-10-02 21:28] LABS: Amorphous Light (0-Heavy); Bacteria Few /hpf; Mucus Light (0-Heavy); Squamous Epithelial Cells Not Seen /hpf (Few)
== END 2020-10-02 22:30 | disposition home or self-care (01) ==
LOC: ER 16:41
PROVIDERS: Physician Assistant
DX: R33.9 Retention of urine, unspecified (principal); Z79.4 Long term (current) use of insulin; Z79.899 Other long term (current) drug therapy; Z79.02 Long term (current) use of antithrombotics/antiplatelets
CPT/HCPCS: 51702; 51798; 74018; 80053; 81001; 85025; 87086; 99283-25

== ENCOUNTER 2020-10-07 00:34 | Day surgery (SDC) | payer MEDICARE, OTHER | END 2020-10-07 23:25 | disposition home or self-care (01) | LOC: WOUND 00:34 | DX: E11.621 Type 2 diabetes mellitus with foot ulcer (principal); L97.312 Non-pressure chronic ulcer of right ankle with fat layer exposed; L97.822 Non-pressure chronic ulcer of other part of left lower leg with fat layer exposed; I73.9 Peripheral vascular disease, unspecified; I89.0 Lymphedema, not elsewhere classified; E11.21 Type 2 diabetes mellitus with diabetic nephropathy ==

== ENCOUNTER 2020-10-21 01:56 | Day surgery (SDC) | payer MEDICARE, OTHER ==
[~2020-10-21 01:56] MED LIST changes: +HUMALOG KW100 UNIT/1 SC; -HUMALOG KW200 UNIT/1 SC
[2020-12-29] MEDS ORDERED: IRON18 MG PO (12:39)
[2020-12-29] MEDS ORDERED: ALLOPURINOL100 M1 PO (12:39)
[2020-12-29] MEDS ORDERED: BASAGLAR K100 UNIT/3 SC (13:12)
[2020-12-29] MEDS ORDERED: FERSU300 PO (13:13)
[2020-12-29] MEDS ORDERED: RANOLAZINE PO (13:14)
[2020-12-29] MEDS ORDERED: TAMSULOSIN HCL0.4 M1 PO (13:14)
[2020-12-29] MEDS ORDERED: DILTIAZEM HCL120 M2 PO (13:15)
[2020-12-29] MEDS ORDERED: LISI20 PO (13:15)
== END 2020-10-21 23:15 | disposition home or self-care (01) ==
LOC: WOUND 01:56
DX: E11.621 Type 2 diabetes mellitus with foot ulcer (principal); L97.311 Non-pressure chronic ulcer of right ankle limited to breakdown of skin; L97.822 Non-pressure chronic ulcer of other part of left lower leg with fat layer exposed; I73.9 Peripheral vascular disease, unspecified; I89.0 Lymphedema, not elsewhere classified; E11.21 Type 2 diabetes mellitus with diabetic nephropathy; I10 Essential (primary) hypertension; E11.319 Type 2 diabetes mellitus with unspecified diabetic retinopathy without macular edema; Z85.3 Personal history of malignant neoplasm of breast; Z89.422 Acquired absence of other left toe(s)

== ENCOUNTER 2020-11-04 00:39 | Day surgery (SDC) | payer MEDICARE, OTHER ==
[2020-12-29] MEDS ORDERED: ALLOPURINOL100 M1 PO (12:39)
[2020-12-29] MEDS ORDERED: IRON18 MG PO (12:39)
[2020-12-29] MEDS ORDERED: BASAGLAR K100 UNIT/3 SC (13:12)
[2020-12-29] MEDS ORDERED: FERSU300 PO (13:13)
[2020-12-29] MEDS ORDERED: RANOLAZINE PO (13:14)
[2020-12-29] MEDS ORDERED: TAMSULOSIN HCL0.4 M1 PO (13:14)
[2020-12-29] MEDS ORDERED: DILTIAZEM HCL120 M2 PO (13:15)
[2020-12-29] MEDS ORDERED: LISI20 PO (13:15)
== END 2020-11-04 23:05 | disposition home or self-care (01) ==
LOC: WOUND 00:39
DX: E11.622 Type 2 diabetes mellitus with other skin ulcer (principal); L97.312 Non-pressure chronic ulcer of right ankle with fat layer exposed; L97.822 Non-pressure chronic ulcer of other part of left lower leg with fat layer exposed; I73.9 Peripheral vascular disease, unspecified; I89.0 Lymphedema, not elsewhere classified; E11.21 Type 2 diabetes mellitus with diabetic nephropathy; I10 Essential (primary) hypertension; E11.319 Type 2 diabetes mellitus with unspecified diabetic retinopathy without macular edema; Z85.3 Personal history of malignant neoplasm of breast

== ENCOUNTER 2020-11-18 05:32 | Day surgery (SDC) | payer MEDICARE, OTHER ==
[2020-12-29] MEDS ORDERED: ALLOPURINOL100 M1 PO (12:39)
[2020-12-29] MEDS ORDERED: IRON18 MG PO (12:39)
[2020-12-29] MEDS ORDERED: BASAGLAR K100 UNIT/3 SC (13:12)
[2020-12-29] MEDS ORDERED: FERSU300 PO (13:13)
[2020-12-29] MEDS ORDERED: RANOLAZINE PO (13:14)
[2020-12-29] MEDS ORDERED: TAMSULOSIN HCL0.4 M1 PO (13:14)
[2020-12-29] MEDS ORDERED: LISI20 PO (13:15)
[2020-12-29] MEDS ORDERED: DILTIAZEM HCL120 M2 PO (13:15)
== END 2020-11-18 22:47 | disposition home or self-care (01) ==
LOC: WOUND 05:32
DX: E11.622 Type 2 diabetes mellitus with other skin ulcer (principal); L97.312 Non-pressure chronic ulcer of right ankle with fat layer exposed; L97.822 Non-pressure chronic ulcer of other part of left lower leg with fat layer exposed; I73.9 Peripheral vascular disease, unspecified; I89.0 Lymphedema, not elsewhere classified; E11.21 Type 2 diabetes mellitus with diabetic nephropathy
CPT/HCPCS: A9270

== ENCOUNTER 2020-11-28 01:41 | Emergency (ER) | payer MEDICARE, OTHER ==
[~2020-11-28] VITALS: Ht 175.3 cm; Wt 110.0 kg
[2020-12-29] MEDS ORDERED: IRON18 MG PO (12:39)
[2020-12-29] MEDS ORDERED: ALLOPURINOL100 M1 PO (12:39)
[2020-12-29] MEDS ORDERED: BASAGLAR K100 UNIT/3 SC (13:12)
[2020-12-29] MEDS ORDERED: FERSU300 PO (13:13)
[2020-12-29] MEDS ORDERED: TAMSULOSIN HCL0.4 M1 PO (13:14)
[2020-12-29] MEDS ORDERED: RANOLAZINE PO (13:14)
[2020-12-29] MEDS ORDERED: LISI20 PO (13:15)
[2020-12-29] MEDS ORDERED: DILTIAZEM HCL120 M2 PO (13:15)
== END 2020-11-28 02:37 | disposition home or self-care (01) ==
LOC: ER 01:41
DX: I12.9 Hypertensive chronic kidney disease with stage 1 through stage 4 chronic kidney disease, or unspecified chronic kidney disease (principal); E11.22 Type 2 diabetes mellitus with diabetic chronic kidney disease; N18.30 Chronic kidney disease, stage 3 unspecified; E11.51 Type 2 diabetes mellitus with diabetic peripheral angiopathy without gangrene; I25.10 Atherosclerotic heart disease of native coronary artery without angina pectoris; Z79.4 Long term (current) use of insulin; Z79.899 Other long term (current) drug therapy
CPT/HCPCS: 93005; 93010; 99283-25

== ENCOUNTER 2020-12-09 00:32 | Day surgery (SDC) | payer MEDICARE, OTHER ==
[2020-12-29] MEDS ORDERED: ALLOPURINOL100 M1 PO (12:39)
[2020-12-29] MEDS ORDERED: IRON18 MG PO (12:39)
[2020-12-29] MEDS ORDERED: BASAGLAR K100 UNIT/3 SC (13:12)
[2020-12-29] MEDS ORDERED: FERSU300 PO (13:13)
[2020-12-29] MEDS ORDERED: RANOLAZINE PO (13:14)
[2020-12-29] MEDS ORDERED: TAMSULOSIN HCL0.4 M1 PO (13:14)
[2020-12-29] MEDS ORDERED: DILTIAZEM HCL120 M2 PO (13:15)
[2020-12-29] MEDS ORDERED: LISI20 PO (13:15)
== END 2020-12-09 22:53 | disposition home or self-care (01) ==
LOC: WOUND 00:32
DX: E11.621 Type 2 diabetes mellitus with foot ulcer (principal); L97.822 Non-pressure chronic ulcer of other part of left lower leg with fat layer exposed; I73.9 Peripheral vascular disease, unspecified; I89.0 Lymphedema, not elsewhere classified; E11.21 Type 2 diabetes mellitus with diabetic nephropathy

== ENCOUNTER 2020-12-23 01:39 | Day surgery (SDC) | payer MEDICARE, OTHER ==
[~2020-12-23 01:39] MED LIST changes: -HUMALOG KW100 UNIT/1 SC; +HUMALOG KW200 UNIT/1 SC
== END 2020-12-23 23:55 | disposition home or self-care (01) ==
LOC: WOUND 01:39
DX: E11.622 Type 2 diabetes mellitus with other skin ulcer (principal); L97.312 Non-pressure chronic ulcer of right ankle with fat layer exposed; L97.822 Non-pressure chronic ulcer of other part of left lower leg with fat layer exposed; E11.51 Type 2 diabetes mellitus with diabetic peripheral angiopathy without gangrene; E11.21 Type 2 diabetes mellitus with diabetic nephropathy; E11.319 Type 2 diabetes mellitus with unspecified diabetic retinopathy without macular edema; I10 Essential (primary) hypertension; Z85.3 Personal history of malignant neoplasm of breast; Z89.422 Acquired absence of other left toe(s); Z88.6 Allergy status to analgesic agent
CPT/HCPCS: G0463

== ENCOUNTER 2021-01-18 08:14 | Inpatient (IN) | payer MEDICARE, OTHER ==
[~2021-01-18] VITALS: Ht 177.8 cm; Wt 130.5 kg
[~2021-01-18 08:14] MED LIST changes: +ALLOPURINOL100 M1 PO; +BASAGLAR K100 UNIT/3 SC; +DILTIAZEM HCL120 M2 PO; +HUMALOG KW100 UNIT/1 SC; -HUMALOG KW200 UNIT/1 SC; +IRON18 MG PO; +LISI20 PO; +RANOLAZINE PO; +TAMSULOSIN HCL0.4 M1 PO
[2021-01-18 08:51] LABS: BASOPHILS ABSOLUTE AUTO 0.05 K/mm3 (0.00-0.23); BASOPHILS PERCENT AUTO 1 % (0-2); EOSINOPHILS ABSOLUTE AUTO 0.34 K/mm3 (0.00-0.68); EOSINOPHILS PERCENT AUTO 4 % (0-6); Hematocrit 32.7 % (37.0-53.0); Hemoglobin 9.8 g/dL (13.5-17.5); IMMATURE GRAN ABSOLUTE AUTO 0.09 K/mm3 (0.00-0.10); IMMATURE GRAN PERCENT AUTO 1 % (0-1); LYMPHOCYTES ABSOLUTE AUTO 0.76 K/mm3 (0.84-5.20); LYMPHOCYTES PERCENT AUTO 10 % (21-46); MONOCYTES ABSOLUTE AUTO 0.36 K/mm3 (0.16-1.47); MONOCYTES PERCENT AUTO 5 % (4-13); Mean Corpuscular Volume 97 fL (80-100); Mean Platelet Volume 11.1 fL (9.1-12.4); NEUTROPHILS ABSOLUTE AUTO 6.35 K/mm3 (1.96-9.15); NEUTROPHILS PERCENT AUTO 80 % (41-73); NRBC ABSOLUTE 0.04 K/mm3 (0.00-0.02); NRBC Auto 0.5 /100 WBC (0.0-0.2); Platelet Count 185 K/mm3 (150-400); RDW Coefficient Variation 16.3 % (11.7-14.2); RDW Standard Deviation 57.1 fL (35.1-46.3); Red Blood Cell Count 3.38 M/mm3 (4.30-5.90); White Blood Cell Count 7.95 K/mm3 (4.00-11.30)
[2021-01-18 09:04] LABS: Alanine Aminotransfer (ALT/SGP 24 U/L (12-78); Albumin, Blood 3.3 g/dL (3.4-5.0); Albumin/Globulin Ratio 0.6 (0.8-1.8); Alk Phos 149 U/L (50-136); Anion Gap 3 mmol/L (6-16); Aspartate Aminotrans (AST/SGOT 13 U/L (12-37); Bilirubin, Total 0.7 mg/dL (0.1-1.0); Blood Urea Nitrogen 15 mg/dL (8-24); CO2, Blood 27 mmol/L (21-32); Calcium, Blood 8.8 mg/dL (8.5-10.1); Chloride, Blood 109 mmol/L (98-108); Creatinine, Blood 2.15 mg/dL (0.60-1.20); Globulin, Blood 5.1 g/dL (2.2-4.0); Glomerular Filtration Rate 32 (60-); Glucose, Blood 310 mg/dL (70-99); Potassium, Blood 4.5 mmol/L (3.5-5.5); Sodium, Blood 139 mmol/L (136-145); Total Protein, Blood 8.4 g/dL (6.4-8.2); Troponin I <0.015 ng/mL (0.000-0.040)
[2021-01-18 11:47] LABS: PCO2 Arterial 53.8 mmHg (35-45); PO2 Arterial 56.1 mmHg (80-100); pH Blood Arterial 7.32 (7.35-7.45)
--- NOTE | 2021-01-18 17:49 | NUR ---
ADMIT NOTE RECIEVED REPORT FROM OBINNA LOPEZ IN ED. PT TO ROOM. SBA TO BED. PT ORIENTED TO ROOM AND CALL LIGHT. EDUCATED PT ON FALL RISK AND TO CALL FOR ASSISTANCE. PT REPORTS WAKING UP FROM SLEEPING WITH SOB AND UNABLE TO CATCH BREATH. PT A&Ox4; CALM AND COOPEATIVE WITH CARE. PT RESTING IN BED, 1 PERSON ASSIST TO BSC. PT REPORTS SOB, ON 5L O2 VIA NC, LS DIM T/O. PER TELE SINUS. ELEVATED BP, MEDICATED PER EMAR. PT DENIES PAIN, CHEST PAIN, NASUEA AND DIZZINESS. RESP PCR AND STERP PNUEMO ANTIGEN COLLECTED AND SENT. WOUND TO LEFT HUYNH AND RIGHT HEEL; PICTURES IN CHART AND DRESSING/MEPILEX CHANGED. OTHE VSS. NO OTHER ACUTE CHANGES NOTED. WILL CONTINUE TO MONITOR UNITL REPORT GIVEN TO ONCOMING RN.
[2021-01-18 18:02] LABS: Adenovirus Not Detected (NOT DETECT); Bordetella pertussis Not Detected (NOT DETECT); Chlamydophila pneumoniae Not Detected (NOT DETECT); Coronavirus 229E Not Detected (NOT DETECT); Coronavirus HKU1 Not Detected (NOT DETECT); Coronavirus NL63 Not Detected (NOT DETECT); Coronavirus OC43 Not Detected (NOT DETECT); Human Metapneumovirus Not Detected (NOT DETECT); Human Rhinovirus/Enterovirus Not Detected (NOT DETECT); Influenza A/2009-H1 Not Detected (NOT DETECT); Influenza A/H1 Not Detected (NOT DETECT); Influenza A/H3 Not Detected (NOT DETECT); Influenza B Not Detected (NOT DETECT); Mycoplasma pneumoniae Not Detected (NOT DETECT); Parainfluenza Virus 1 Not Detected (NOT DETECT); Parainfluenza Virus 2 Not Detected (NOT DETECT); Parainfluenza Virus 3 Not Detected (NOT DETECT); Parainfluenza Virus 4 Not Detected (NOT DETECT); Respiratory Syncytial Virus Not Detected (NOT DETECT); SARS-Cov-2 (COVID-19), BioFire Not Detected (NOT DETECT)
--- NOTE | 2021-01-18 23:37 | NUR ---
TRANSFER NOTE HANDOFF RECEIVED FROM U NERISSA. PT ARRIVED TO FLOOR VIA GURNEY. PT ORIENTED TO UNIT. TELEMETRY IN PLACE. CALL BUTTON WITHIN REACH.
--- NOTE | 2021-01-19 04:46 | NUR ---
SHIFT SUMMARY ADMITTED FOR ACUTE HYPOXIC RESPIRATORY FAILURE. DNR CODE. TRANSFERED FROM PCU THIS SHIFT. 4 LPM O2 VIA NC. AT BASELINE HE USES 2 LPM AT REST AND 4 LPM WITH EXERTION. HE IS ACHS CHEMSTICKS. HE HAS DIABETIC ULCERS TO HIS BLE. HE IS ON PLAVIX. HE IS ON SOLUMEDROL HERE. PHYSICAL & OCCUPATIONAL THERAPIES ARE WORKING WITH THIS PT. CARDIAC DIET. TELEMETRY: NSR @ 91 BPM.
[2021-01-19 05:26] LABS: BASOPHILS PERCENT AUTO 0 % (0-2); EOSINOPHILS PERCENT AUTO 0 % (0-6); Hematocrit 29.9 % (37.0-53.0); IMMATURE GRAN ABSOLUTE AUTO 0.02 K/mm3 (0.00-0.10); IMMATURE GRAN PERCENT AUTO 0 % (0-1); LYMPHOCYTES PERCENT AUTO 9 % (21-46); MONOCYTES ABSOLUTE AUTO 0.03 K/mm3 (0.16-1.47); MONOCYTES PERCENT AUTO 1 % (4-13); Mean Corpuscular HGB 28.5 pg (26.0-34.0); Mean Corpuscular HGB Conc 30.1 g/dL (31.5-36.5); Mean Corpuscular Volume 95 fL (80-100); Mean Platelet Volume 10.9 fL (9.1-12.4); NEUTROPHILS ABSOLUTE AUTO 4.25 K/mm3 (1.96-9.15); NEUTROPHILS PERCENT AUTO 91 % (41-73); Platelet Count 160 K/mm3 (150-400); RDW Coefficient Variation 16.5 % (11.7-14.2); RDW Standard Deviation 56.6 fL (35.1-46.3); Red Blood Cell Count 3.16 M/mm3 (4.30-5.90)
[2021-01-19 05:50] LABS: Bun/Creatinine Ratio 10.3 (12.0-20.0); Calcium, Blood 8.7 mg/dL (8.5-10.1); Creatinine, Blood 1.95 mg/dL (0.60-1.20); Potassium, Blood 4.8 mmol/L (3.5-5.5)
--- NOTE | 2021-01-19 18:19 | NUR ---
SHIFT SUMMARY UP TO CHAIR MOST OF SHIFT. SBA. BLOOD PRESSURE IMPROVED. PATIENT STATES HE IS SEEN IN THE WOUND CLINIC EVERY TWO WEEKS AND IS DUE TO BE SEEN TOMORROW 01/20/2021, WILL VERBALLY PASS ON, AND WRITE ON WHITEBOARD.
--- NOTE | 2021-01-20 03:32 | NUR ---
CROP QUANTITATIVE GENETICIST SUMMARY WAS UP IN RECLINER AT BEDSIDE UNTIL LATE HS, ASSISTED WITH URINAL AND SOON AFTER WAS ASSISTED TO BED. O2 MAINAINED AT 4L/MIN PER NC. HOB ELEVATED FOR SOMCORT. CALL LIGHT IN REACH. NO C/O VOICED OF THIS WRITING. WILL MONITOR
[2021-01-20 09:37] LABS: BASOPHILS PERCENT AUTO 0 % (0-2); EOSINOPHILS PERCENT AUTO 0 % (0-6); Hematocrit 30.6 % (37.0-53.0); Hemoglobin 9.5 g/dL (13.5-17.5); IMMATURE GRAN ABSOLUTE AUTO 0.05 K/mm3 (0.00-0.10); IMMATURE GRAN PERCENT AUTO 1 % (0-1); LYMPHOCYTES ABSOLUTE AUTO 0.65 K/mm3 (0.84-5.20); LYMPHOCYTES PERCENT AUTO 9 % (21-46); MONOCYTES ABSOLUTE AUTO 0.14 K/mm3 (0.16-1.47); MONOCYTES PERCENT AUTO 2 % (4-13); Mean Corpuscular HGB 29.2 pg (26.0-34.0); Mean Corpuscular Volume 94 fL (80-100); Mean Platelet Volume 11.4 fL (9.1-12.4); NEUTROPHILS ABSOLUTE AUTO 6.25 K/mm3 (1.96-9.15); NEUTROPHILS PERCENT AUTO 88 % (41-73); Platelet Count 175 K/mm3 (150-400); RDW Standard Deviation 56.3 fL (35.1-46.3); Red Blood Cell Count 3.25 M/mm3 (4.30-5.90); White Blood Cell Count 7.09 K/mm3 (4.00-11.30)
[2021-01-20 09:56] LABS: Bun/Creatinine Ratio 14.5 (12.0-20.0); Calcium, Blood 8.9 mg/dL (8.5-10.1); Creatinine, Blood 2.27 mg/dL (0.60-1.20); Potassium, Blood 4.9 mmol/L (3.5-5.5)
[2021-01-20] MEDS ORDERED: DELTASONE20 MG PO (15:56)
--- NOTE | 2021-01-20 16:32 | NUR ---
SUMMARY/DISCHARGE PT BEING DISCHARGED TO HOME WITH HOME HEALTH, PT IS ALERT AND ORIENTED, HAS BEEN PLEASANT AND COOPERATIVE T/O THE DAY, WOUND CLINIC REFERRAL PLACED DUE TO THE PT BEING A WOUND CLINIC PATIENT ALREADY AND APPOINTMENT WAS SCHEDULED FOR TODAY, WOUND CLINIC STAFF UP TO ASSESS THE PT AND BORDERED FOAM DRESSINGS APPLIED TO OPEN AREAS, PT ANA MARÍA WELL, FOLLOW UP MADE FOR THE WOUND CLINIC, PT VERBALIZED UNDERSTANDING OF DISCHARGE INSTRUCTIONS REGARDING MEDS AND FOLLOW UP, PT CALLED HIS RIDE, NOW WAITING
--- NOTE | 2021-01-20 16:55 | NUR ---
PT TAKEN OUT SAFELY VIA WHEELCHAIR
== END 2021-01-20 16:55 | disposition home health service (06) | DRG 189 ==
LOC: ER 08:14 → ERHOLD 12:45 → PCU 15:51 → MEDS 23:22
PROVIDERS: Physician Assistant; ADMIT Internal Medicine
PROC: 5A09357 Assistance with Respiratory Ventilation, Less than 24 Consecutive Hours, Continuous Positive Airway Pressure (ICD-10-PCS; principal; 2021-01-18)
DX: J96.01 Acute respiratory failure with hypoxia (principal); E87.2 Acidosis; I13.0 Hypertensive heart and chronic kidney disease with heart failure and stage 1 through stage 4 chronic kidney disease, or unspecified chronic kidney disease; E66.2 Morbid (severe) obesity with alveolar hypoventilation; Z66 Do not resuscitate; Z20.822 Contact with and (suspected) exposure to COVID-19; I16.0 Hypertensive urgency; I25.10 Atherosclerotic heart disease of native coronary artery without angina pectoris; E11.22 Type 2 diabetes mellitus with diabetic chronic kidney disease; N18.32 Chronic kidney disease, stage 3b; K21.9 Gastro-esophageal reflux disease without esophagitis; I50.9 Heart failure, unspecified; F41.9 Anxiety disorder, unspecified; F32.9 Major depressive disorder, single episode, unspecified; E78.5 Hyperlipidemia, unspecified; Z68.38 Body mass index [BMI] 38.0-38.9, adult; Z79.4 Long term (current) use of insulin; Z79.82 Long term (current) use of aspirin; Z79.899 Other long term (current) drug therapy; Z90.49 Acquired absence of other specified parts of digestive tract; Z98.890 Other specified postprocedural states; Z90.13 Acquired absence of bilateral breasts and nipples; Z89.422 Acquired absence of other left toe(s); Z79.02 Long term (current) use of antithrombotics/antiplatelets; Z95.5 Presence of coronary angioplasty implant and graft
CPT/HCPCS: 0202U; 36415; 36600; 71045; 80048; 80053; 82803; 82947; 83690; 83880; 84145; 84484; 85025; 87449; 93005; 93010; 94640; 94660; 94760; 96374; 96375; 97110; 97116; 97161; 97165; 97530; 97535; 99285-25; A9270; J1650; J1940; J2920; J2930

== ENCOUNTER 2021-01-27 08:00 | Day surgery (SDC) | payer MEDICARE, OTHER ==
[~2021-01-27 08:00] MED LIST changes: +DELTASONE20 MG PO
== END 2021-01-27 23:59 | disposition home or self-care (01) ==
LOC: WOUND 08:00
DX: E11.622 Type 2 diabetes mellitus with other skin ulcer (principal); L97.312 Non-pressure chronic ulcer of right ankle with fat layer exposed; L97.822 Non-pressure chronic ulcer of other part of left lower leg with fat layer exposed; E11.51 Type 2 diabetes mellitus with diabetic peripheral angiopathy without gangrene; E11.21 Type 2 diabetes mellitus with diabetic nephropathy; E11.319 Type 2 diabetes mellitus with unspecified diabetic retinopathy without macular edema; I89.0 Lymphedema, not elsewhere classified; I10 Essential (primary) hypertension; D50.9 Iron deficiency anemia, unspecified; Z89.422 Acquired absence of other left toe(s); Z85.3 Personal history of malignant neoplasm of breast
CPT/HCPCS: G0463

== ENCOUNTER 2021-02-10 01:58 | Day surgery (SDC) | payer MEDICARE, OTHER | END 2021-02-10 23:34 | disposition home or self-care (01) | LOC: WOUND 01:58 | DX: E11.621 Type 2 diabetes mellitus with foot ulcer (principal); L97.512 Non-pressure chronic ulcer of other part of right foot with fat layer exposed; L97.822 Non-pressure chronic ulcer of other part of left lower leg with fat layer exposed; I73.9 Peripheral vascular disease, unspecified; I89.0 Lymphedema, not elsewhere classified; E11.21 Type 2 diabetes mellitus with diabetic nephropathy; E11.319 Type 2 diabetes mellitus with unspecified diabetic retinopathy without macular edema; I10 Essential (primary) hypertension; Z88.6 Allergy status to analgesic agent | CPT/HCPCS: G0463 ==

== ENCOUNTER 2021-02-17 01:35 | Day surgery (SDC) | payer MEDICARE, OTHER | END 2021-02-17 23:11 | disposition home or self-care (01) | LOC: WOUND 01:35 | DX: E11.622 Type 2 diabetes mellitus with other skin ulcer (principal); L97.822 Non-pressure chronic ulcer of other part of left lower leg with fat layer exposed; L97.312 Non-pressure chronic ulcer of right ankle with fat layer exposed; E11.51 Type 2 diabetes mellitus with diabetic peripheral angiopathy without gangrene; I89.0 Lymphedema, not elsewhere classified; E11.21 Type 2 diabetes mellitus with diabetic nephropathy; E11.319 Type 2 diabetes mellitus with unspecified diabetic retinopathy without macular edema; I10 Essential (primary) hypertension; Z89.422 Acquired absence of other left toe(s); Z85.3 Personal history of malignant neoplasm of breast | CPT/HCPCS: G0463 ==

== ENCOUNTER 2021-02-24 01:43 | Day surgery (SDC) | payer MEDICARE, OTHER | END 2021-02-24 23:14 | disposition home or self-care (01) | LOC: WOUND 01:43 | DX: E11.622 Type 2 diabetes mellitus with other skin ulcer (principal); L97.312 Non-pressure chronic ulcer of right ankle with fat layer exposed; L97.822 Non-pressure chronic ulcer of other part of left lower leg with fat layer exposed; E11.52 Type 2 diabetes mellitus with diabetic peripheral angiopathy with gangrene; I96 Gangrene, not elsewhere classified; I89.0 Lymphedema, not elsewhere classified; E11.319 Type 2 diabetes mellitus with unspecified diabetic retinopathy without macular edema; E11.51 Type 2 diabetes mellitus with diabetic peripheral angiopathy without gangrene; E11.21 Type 2 diabetes mellitus with diabetic nephropathy; I10 Essential (primary) hypertension; Z89.422 Acquired absence of other left toe(s) | CPT/HCPCS: G0463 ==

== ENCOUNTER 2021-03-10 01:14 | Day surgery (SDC) | payer MEDICARE, OTHER | END 2021-03-10 23:06 | disposition home or self-care (01) | LOC: WOUND 01:14 | DX: E11.622 Type 2 diabetes mellitus with other skin ulcer (principal); L97.312 Non-pressure chronic ulcer of right ankle with fat layer exposed; L97.822 Non-pressure chronic ulcer of other part of left lower leg with fat layer exposed; E11.51 Type 2 diabetes mellitus with diabetic peripheral angiopathy without gangrene; I89.0 Lymphedema, not elsewhere classified; E11.21 Type 2 diabetes mellitus with diabetic nephropathy; E11.319 Type 2 diabetes mellitus with unspecified diabetic retinopathy without macular edema; I10 Essential (primary) hypertension; Z85.3 Personal history of malignant neoplasm of breast | CPT/HCPCS: A9270 ==

== ENCOUNTER 2021-03-24 01:57 | Day surgery (SDC) | payer MEDICARE, OTHER | END 2021-03-24 12:00 | disposition home or self-care (01) | LOC: WOUND 01:57 | DX: E11.622 Type 2 diabetes mellitus with other skin ulcer (principal); L97.312 Non-pressure chronic ulcer of right ankle with fat layer exposed; L97.822 Non-pressure chronic ulcer of other part of left lower leg with fat layer exposed; E11.51 Type 2 diabetes mellitus with diabetic peripheral angiopathy without gangrene; I89.0 Lymphedema, not elsewhere classified; E11.21 Type 2 diabetes mellitus with diabetic nephropathy ==

== ENCOUNTER 2021-04-07 01:24 | Day surgery (SDC) | payer MEDICARE, OTHER | END 2021-04-07 23:23 | disposition home or self-care (01) | LOC: WOUND 01:24 | DX: E11.621 Type 2 diabetes mellitus with foot ulcer (principal); L97.822 Non-pressure chronic ulcer of other part of left lower leg with fat layer exposed; E11.51 Type 2 diabetes mellitus with diabetic peripheral angiopathy without gangrene; I89.0 Lymphedema, not elsewhere classified; E11.21 Type 2 diabetes mellitus with diabetic nephropathy; E11.319 Type 2 diabetes mellitus with unspecified diabetic retinopathy without macular edema; I10 Essential (primary) hypertension; Z89.422 Acquired absence of other left toe(s); Z85.3 Personal history of malignant neoplasm of breast | CPT/HCPCS: G0463 ==

== ENCOUNTER 2021-05-20 01:38 | Day surgery (SDC) | payer MEDICARE, OTHER | END 2021-05-20 12:00 | disposition home or self-care (01) | LOC: WOUND 01:38 | DX: E11.621 Type 2 diabetes mellitus with foot ulcer (principal); L97.822 Non-pressure chronic ulcer of other part of left lower leg with fat layer exposed; E11.51 Type 2 diabetes mellitus with diabetic peripheral angiopathy without gangrene; I89.0 Lymphedema, not elsewhere classified; E11.21 Type 2 diabetes mellitus with diabetic nephropathy; E11.319 Type 2 diabetes mellitus with unspecified diabetic retinopathy without macular edema; I10 Essential (primary) hypertension; Z85.3 Personal history of malignant neoplasm of breast | CPT/HCPCS: G0463 ==

== ENCOUNTER 2021-06-03 05:13 | Day surgery (SDC) | payer MEDICARE, OTHER | END 2021-06-03 23:55 | disposition home or self-care (01) | LOC: WOUND 05:13 | DX: E11.621 Type 2 diabetes mellitus with foot ulcer (principal); L97.822 Non-pressure chronic ulcer of other part of left lower leg with fat layer exposed; E11.51 Type 2 diabetes mellitus with diabetic peripheral angiopathy without gangrene; I89.0 Lymphedema, not elsewhere classified; E11.21 Type 2 diabetes mellitus with diabetic nephropathy; E11.319 Type 2 diabetes mellitus with unspecified diabetic retinopathy without macular edema; I10 Essential (primary) hypertension | CPT/HCPCS: G0463 ==

== ENCOUNTER 2021-06-24 07:40 | Day surgery (SDC) | payer MEDICARE, OTHER | END 2021-06-24 23:58 | disposition home or self-care (01) | LOC: WOUND 07:40 | DX: E11.621 Type 2 diabetes mellitus with foot ulcer (principal); L97.822 Non-pressure chronic ulcer of other part of left lower leg with fat layer exposed; I89.0 Lymphedema, not elsewhere classified; E11.51 Type 2 diabetes mellitus with diabetic peripheral angiopathy without gangrene; E11.21 Type 2 diabetes mellitus with diabetic nephropathy | CPT/HCPCS: G0463 ==

== ENCOUNTER 2022-10-05 10:20 | Observation (INO) | payer MEDICARE, OTHER ==
[~2022-10-05] VITALS: Ht 175.3 cm; Wt 114.3 kg
[~2022-10-05 10:20] MED LIST changes: +ASPI81CH PO; +JARDIANCE10 MG PO
[2022-10-05 11:23] VITALS: BP 173/97
[2022-10-05] MEDS ORDERED: HUMALOG KW100 UNIT/1 SC (13:06)
[2022-10-05] MEDS ORDERED: CLOP75 PO (13:06)
[2022-10-05 14:14] LABS: Albumin, Blood 1.5 g/dL (3.4-5.0); Albumin/Globulin Ratio 0.3 (0.8-1.8); Bilirubin, Total 0.3 mg/dL (0.1-1.0); Calcium, Blood 7.9 mg/dL (8.5-10.1); Creatinine, Blood 2.51 mg/dL (0.60-1.20); Potassium, Blood 3.6 mmol/L (3.5-5.5); Total Protein, Blood 6.5 g/dL (6.4-8.2)
[2022-10-05 14:20] LABS: BASOPHILS ABSOLUTE AUTO 0.04 K/mm3 (0.00-0.23); BASOPHILS PERCENT AUTO 0 % (0-2); EOSINOPHILS ABSOLUTE AUTO 0.11 K/mm3 (0.00-0.68); EOSINOPHILS PERCENT AUTO 1 % (0-6); Hematocrit 27.7 % (37.0-53.0); IMMATURE GRAN ABSOLUTE AUTO 0.08 K/mm3 (0.00-0.10); IMMATURE GRAN PERCENT AUTO 1 % (0-1); LYMPHOCYTES ABSOLUTE AUTO 0.66 K/mm3 (0.84-5.20); LYMPHOCYTES PERCENT AUTO 6 % (21-46); MONOCYTES ABSOLUTE AUTO 0.51 K/mm3 (0.16-1.47); MONOCYTES PERCENT AUTO 5 % (4-13); Mean Corpuscular HGB 28.4 pg (26.0-34.0); Mean Corpuscular HGB Conc 32.5 g/dL (31.5-36.5); Mean Corpuscular Volume 87 fL (80-100); Mean Platelet Volume 10.8 fL (9.1-12.4); NEUTROPHILS ABSOLUTE AUTO 9.32 K/mm3 (1.96-9.15); NEUTROPHILS PERCENT AUTO 87 % (41-73); Platelet Count 281 K/mm3 (150-400); RDW Coefficient Variation 12.7 % (11.7-14.2); RDW Standard Deviation 41.1 fL (35.1-46.3); Red Blood Cell Count 3.17 M/mm3 (4.30-5.90); White Blood Cell Count 10.72 K/mm3 (4.00-11.30)
[2022-10-05 15:22] VITALS: BP 149/86
[2022-10-05 19:39] LABS: Adenovirus F 40/41 Not Detected (NOT DETECT); Astrovirus Not Detected (NOT DETECT); Campylobacter Sp Not Detected (NOT DETECT); Cryptosporidium Not Detected (NOT DETECT); Cyclospora Cayetanensis Not Detected (NOT DETECT); E. Coli O157 Not Detected (NOT DETECT); Entamoeba Histolytica Not Detected (NOT DETECT); Enteroaggregative E. coli-EAEC Not Detected (NOT DETECT); Enteropathogenic E. coli-EPEC Not Detected (NOT DETECT); Enterotoxigenic E. coli-ETEC Not Detected (NOT DETECT); Giardia Lamblia Not Detected (NOT DETECT); Norovirus GI/GII Not Detected (NOT DETECT); Plesiomonas Shigelloides Not Detected (NOT DETECT); Rotavirus A Not Detected (NOT DETECT); Salmonella Sp Not Detected (NOT DETECT); Sapovirus Not Detected (NOT DETECT); Shiga Toxin-prod E. coli-STEC Not Detected (NOT DETECT); Shigella/Enteroin E. coli-EIEC Not Detected (NOT DETECT); Vibrio Cholerae Not Detected (NOT DETECT); Vibrio Sp Not Detected (NOT DETECT); Yersinia Enterocolitica Not Detected (NOT DETECT)
--- NOTE | 2022-10-05 19:49 | NUR ---
SHIFT SUMMARY PTN DIRECT ADMIT AT 1105. PTN WITH BLE CELLULITIS, SCALY SKIN. NO OPEN WOUNDS. PHOTOS TAKEN FOR CHART. STOOL NOTED TO BE DARK, GREENISH TINT, ORDER FOR RULE-OUT CDIF, AND SAMPLE SENT TO LAB. PTN SEEN BY PT AND OT, ENCOURAGED TO GET UP TO COMMODE WITH ASSIST. CONTINUE TO MONITOR.
[2022-10-05 20:01] VITALS: BP 161/89
--- NOTE | 2022-10-06 01:25 | NUR ---
MRI FORM FILLED OUT AND FAXED.
[2022-10-06 02:27] VITALS: BP 166/87
--- NOTE | 2022-10-06 04:02 | NUR ---
SHIFT SUMMARY PATIENT HAD NO ACUTE CHANGES. AXOX 4 AND BEDREST. HAND TREMORS NEEDING ASSISTANCE WITH URINAL AND MEDICATION. PIV REMAINS INTACT. NS INFUSING AT 100 mL/HR. CBG 189. MILD HYPERTENSIVE/AFEBRILE. DENIES CHEST PAIN, SOB, AND N/V. CONTACT PRECAUTIONS FOR C.DIFF. MRI FORM FILLED OUT AND FAXED. CALL LIGHT IN REACH. BED IN LOWEST POSITION. WILL CONTINUE TO MONITOR UNTIL DAY SHIFT NURSE ASSUMES CARE.
[2022-10-06 05:38] LABS: BASOPHILS ABSOLUTE AUTO 0.04 K/mm3 (0.00-0.23); BASOPHILS PERCENT AUTO 0 % (0-2); EOSINOPHILS ABSOLUTE AUTO 0.11 K/mm3 (0.00-0.68); EOSINOPHILS PERCENT AUTO 1 % (0-6); Hematocrit 24.3 % (37.0-53.0); Hemoglobin 7.8 g/dL (13.5-17.5); IMMATURE GRAN ABSOLUTE AUTO 0.07 K/mm3 (0.00-0.10); IMMATURE GRAN PERCENT AUTO 1 % (0-1); LYMPHOCYTES ABSOLUTE AUTO 1.21 K/mm3 (0.84-5.20); LYMPHOCYTES PERCENT AUTO 12 % (21-46); MONOCYTES ABSOLUTE AUTO 0.45 K/mm3 (0.16-1.47); MONOCYTES PERCENT AUTO 5 % (4-13); Mean Corpuscular HGB 28.6 pg (26.0-34.0); Mean Corpuscular HGB Conc 32.1 g/dL (31.5-36.5); Mean Corpuscular Volume 89 fL (80-100); Mean Platelet Volume 10.2 fL (9.1-12.4); NEUTROPHILS ABSOLUTE AUTO 7.93 K/mm3 (1.96-9.15); NEUTROPHILS PERCENT AUTO 81 % (41-73); Platelet Count 268 K/mm3 (150-400); RDW Coefficient Variation 12.7 % (11.7-14.2); RDW Standard Deviation 41.6 fL (35.1-46.3); Red Blood Cell Count 2.73 M/mm3 (4.30-5.90); White Blood Cell Count 9.81 K/mm3 (4.00-11.30)
[2022-10-06 05:59] LABS: Magnesium, Blood 2.1 mg/dL (1.6-2.4)
[2022-10-06 06:00] LABS: Albumin, Blood 1.4 g/dL (3.4-5.0); Albumin/Globulin Ratio 0.3 (0.8-1.8); Bilirubin, Total 0.2 mg/dL (0.1-1.0); Bun/Creatinine Ratio 6.9 (12.0-20.0); Calcium, Blood 7.5 mg/dL (8.5-10.1); Creatinine, Blood 2.31 mg/dL (0.60-1.20); Globulin, Blood 4.6 g/dL (2.2-4.0); Potassium, Blood 3.3 mmol/L (3.5-5.5)
[2022-10-06 07:40] VITALS: BP 163/77
[2022-10-06 15:22] LABS: SARS-Cov-2 (COVID-19) PCR, MMC Negative (NEGATIVE)
[2022-10-06 15:25] VITALS: BP 147/91
--- NOTE | 2022-10-06 17:49 | NUR ---
DAYSHIFT SUMMARY Patient had MRI on bilat feet, osteomyelitis present in right middle toe. Podiatry consulted & discussed tx with MD. Plan is to tx with IV therapy, patient has been accepted to SNF. Pt will DC when medically stable. Worked with PT today. Vitals stable. Will continue plan of care.
[2022-10-06 19:42] VITALS: BP 157/80
[2022-10-07 03:19] VITALS: BP 155/80
--- NOTE | 2022-10-07 05:41 | NUR ---
SHIFT SUMMARY 57 YR M ADMITTED ON 10/06/22 FOR BLE CELLULITIS. FULL CODE. NO ACUTE CHANGES THIS SHIFT. PT HAS SLEPT FOR MOST OF THIS SHIFT AND HAS NO C/O PAIN OR DISCOMFORT.
[2022-10-07 05:48] LABS: BASOPHILS ABSOLUTE AUTO 0.03 K/mm3 (0.00-0.23); BASOPHILS PERCENT AUTO 0 % (0-2); EOSINOPHILS ABSOLUTE AUTO 0.24 K/mm3 (0.00-0.68); EOSINOPHILS PERCENT AUTO 2 % (0-6); Hematocrit 26.3 % (37.0-53.0); Hemoglobin 8.3 g/dL (13.5-17.5); IMMATURE GRAN PERCENT AUTO 1 % (0-1); LYMPHOCYTES ABSOLUTE AUTO 1.09 K/mm3 (0.84-5.20); LYMPHOCYTES PERCENT AUTO 11 % (21-46); MONOCYTES ABSOLUTE AUTO 0.46 K/mm3 (0.16-1.47); MONOCYTES PERCENT AUTO 5 % (4-13); Mean Corpuscular HGB Conc 31.6 g/dL (31.5-36.5); Mean Corpuscular Volume 89 fL (80-100); Mean Platelet Volume 10.2 fL (9.1-12.4); NEUTROPHILS ABSOLUTE AUTO 8.08 K/mm3 (1.96-9.15); NEUTROPHILS PERCENT AUTO 81 % (41-73); Platelet Count 305 K/mm3 (150-400); RDW Coefficient Variation 12.8 % (11.7-14.2); RDW Standard Deviation 41.4 fL (35.1-46.3); Red Blood Cell Count 2.96 M/mm3 (4.30-5.90)
[2022-10-07 06:19] LABS: Albumin, Blood 1.4 g/dL (3.4-5.0); Albumin/Globulin Ratio 0.3 (0.8-1.8); Bilirubin, Total 0.4 mg/dL (0.1-1.0); Bun/Creatinine Ratio 6.8 (12.0-20.0); Calcium, Blood 7.9 mg/dL (8.5-10.1); Creatinine, Blood 2.19 mg/dL (0.60-1.20); Potassium, Blood 3.6 mmol/L (3.5-5.5); Total Protein, Blood 6.4 g/dL (6.4-8.2)
[2022-10-07 07:52] VITALS: BP 164/87
[2022-10-07 15:53] VITALS: BP 157/79
[2022-10-07] MEDS ORDERED: CLINDAMYCIN HC300 MG PO (16:19)
[2022-10-07] MEDS ORDERED: INSULANI SC (16:20)
[2022-10-07] MEDS ORDERED: METO25 PO (16:20)
[2022-10-07] MEDS ORDERED: Flomax0.4 MG PO (16:21)
--- NOTE | 2022-10-07 17:43 | NUR ---
DAYSHIFT SUMMARY Patient AOx4, doing well today. Started Procardia today. CBGs WNL, SSI given at 1700. Patient incontinent of B/B. Plan is to discharge tomorrow afternoon to SNF. Patient will need a new COVID swab collected early tomorrow morning for discharge disposition. Will continue plan of care.
[2022-10-07 19:37] VITALS: BP 138/74
[2022-10-08 02:50] VITALS: BP 120/73
[2022-10-08 07:45] VITALS: BP 136/79
[2022-10-08 10:13] LABS: SARS-Cov-2 (COVID-19) PCR, MMC Negative (NEGATIVE)
--- NOTE | 2022-10-08 14:02 | NUR ---
PT AWAKE DURING SHIFT REPORT. PLEASANT AND CO-OP WITH CARE. PT WITH BLE CELLULITIS AND POSSIBLE OSTEOMYLITIS IN TOES. PT TO D/C TO SNF FOR REHAB. ADMITTED SEVERELY DECONDITIONED. PT'S LE'S VERY DRY, WITH THICK PEELING SKIN. SOME REDNESS AND SWELLING. PT RECEIVING PO ABX. PT TO REMAIN ON PO ABX FOR 4-6 WEEKS. PT'S SISTER, ТАТЬЯНА, NOTIFIED OF TX @ 1316. ATTEMPTED CALL TO [facility] FOR REPORT. RN UNAVAILABLE AT THE TIME. TX HERE @ 7169 TO TAKE PT OVER. BELONGINGS WENT WITH PT.
== END 2022-10-08 14:01 ==
LOC: MEDS 10:20 → ENPENDDIS 10-08 13:33 → MEDS 10-08 14:01
PROVIDERS: ADMIT Internal Medicine
DX: E11.52 Type 2 diabetes mellitus with diabetic peripheral angiopathy with gangrene (principal); I96 Gangrene, not elsewhere classified; E11.69 Type 2 diabetes mellitus with other specified complication; M86.171 Other acute osteomyelitis, right ankle and foot; L03.116 Cellulitis of left lower limb; L03.115 Cellulitis of right lower limb; I13.0 Hypertensive heart and chronic kidney disease with heart failure and stage 1 through stage 4 chronic kidney disease, or unspecified chronic kidney disease; I50.30 Unspecified diastolic (congestive) heart failure; N18.32 Chronic kidney disease, stage 3b; E11.22 Type 2 diabetes mellitus with diabetic chronic kidney disease; I25.10 Atherosclerotic heart disease of native coronary artery without angina pectoris; F32.A Depression, unspecified; Z20.822 Contact with and (suspected) exposure to COVID-19; F41.9 Anxiety disorder, unspecified; G25.0 Essential tremor; E66.01 Morbid (severe) obesity due to excess calories; E11.40 Type 2 diabetes mellitus with diabetic neuropathy, unspecified; N40.0 Benign prostatic hyperplasia without lower urinary tract symptoms; M10.9 Gout, unspecified; R19.5 Other fecal abnormalities; Z95.5 Presence of coronary angioplasty implant and graft; Z85.3 Personal history of malignant neoplasm of breast; Z90.13 Acquired absence of bilateral breasts and nipples; Z89.422 Acquired absence of other left toe(s); Z79.899 Other long term (current) drug therapy; Z79.84 Long term (current) use of oral hypoglycemic drugs; Z79.82 Long term (current) use of aspirin; Z87.11 Personal history of peptic ulcer disease
CPT/HCPCS: 36415; 73718; 80053; 82947; 83036; 83735; 85025; 87324; 87507; 93306; 96372; 97110; 97116; 97162; 97166; 97530; 97535; A9270; G0378; J1650; J1815; J7030; U0004

== ENCOUNTER → 2022-10-30 | Outpatient (CLI) | payer MEDICARE, OTHER ==
[~2022-10-30] MED LIST changes: +CLINDAMYCIN HC300 MG PO; +Flomax0.4 MG PO; +INSULANI SC
== END | disposition home or self-care (01) ==
LOC: LAB 12:00 → LAB SHORT 12:00
DX: L97.509 Non-pressure chronic ulcer of other part of unspecified foot with unspecified severity (principal)
CPT/HCPCS: 87070; 87077; 87186; 87205

== ENCOUNTER → 2022-11-03 | Outpatient (CLI) | payer MEDICARE, OTHER | END | disposition home or self-care (01) | LOC: LAB 11:49 → LAB SHORT 11:49 | DX: L97.509 Non-pressure chronic ulcer of other part of unspecified foot with unspecified severity (principal) | CPT/HCPCS: 87070; 87075; 87205 ==

== ENCOUNTER → 2022-11-20 | Outpatient (CLI) | payer MEDICARE, OTHER | LOC: PLD 11:46 → LAB SHORT 11:46 | DX: L03.031 Cellulitis of right toe (principal); L97.519 Non-pressure chronic ulcer of other part of right foot with unspecified severity | CPT/HCPCS: 88305 ==

== ENCOUNTER 2023-01-24 09:09 | Observation (INO) | payer MEDICARE, OTHER ==
[~2023-01-24] VITALS: Ht 175.3 cm; Wt 107.5 kg
[2023-01-24 09:39] LABS: BASOPHILS ABSOLUTE AUTO 0.03 K/mm3 (0.00-0.23); BASOPHILS PERCENT AUTO 1 % (0-2); EOSINOPHILS ABSOLUTE AUTO 0.34 K/mm3 (0.00-0.68); EOSINOPHILS PERCENT AUTO 5 % (0-6); Hematocrit 25.1 % (37.0-53.0); Hemoglobin 7.9 g/dL (13.5-17.5); IMMATURE GRAN ABSOLUTE AUTO 0.03 K/mm3 (0.00-0.10); IMMATURE GRAN PERCENT AUTO 1 % (0-1); LYMPHOCYTES ABSOLUTE AUTO 1.07 K/mm3 (0.84-5.20); LYMPHOCYTES PERCENT AUTO 17 % (21-46); MONOCYTES ABSOLUTE AUTO 0.33 K/mm3 (0.16-1.47); MONOCYTES PERCENT AUTO 5 % (4-13); Mean Corpuscular HGB 28.6 pg (26.0-34.0); Mean Corpuscular HGB Conc 31.5 g/dL (31.5-36.5); Mean Corpuscular Volume 91 fL (80-100); Mean Platelet Volume 10.3 fL (9.1-12.4); NEUTROPHILS ABSOLUTE AUTO 4.53 K/mm3 (1.96-9.15); NEUTROPHILS PERCENT AUTO 72 % (41-73); Platelet Count 167 K/mm3 (150-400); RDW Coefficient Variation 14.8 % (11.7-14.2); RDW Standard Deviation 48.7 fL (35.1-46.3); Red Blood Cell Count 2.76 M/mm3 (4.30-5.90); White Blood Cell Count 6.33 K/mm3 (4.00-11.30)
[2023-01-24 10:00] LABS: Albumin, Blood 2.4 g/dL (3.4-5.0); Albumin/Globulin Ratio 0.6 (0.8-1.8); Bilirubin, Total 0.3 mg/dL (0.1-1.0); Bun/Creatinine Ratio 17.9 (12.0-20.0); Calcium, Blood 8.1 mg/dL (8.5-10.1); Creatinine, Blood 1.84 mg/dL (0.60-1.20); Globulin, Blood 4.3 g/dL (2.2-4.0); Potassium, Blood 4.2 mmol/L (3.5-5.5); Total Protein, Blood 6.7 g/dL (6.4-8.2)
[2023-01-24 12:46] VITALS: BP 138/71
--- NOTE | 2023-01-24 12:58 | NUR ---
ADMIT REPORT RECEIVEDF ROM ER. PT ARRIVED VIA GURNEY ACCOMPANIED BY TECH. PT ALERT AND OREINTED. DENIED CP, SOB UPON ARRIVAL. PT SLIDE TO HOSPITAL BED WITH 3 ASSIST AND SLIDER SHEET. PT TOELRATED WELL. HE IS ABLE TO TURN AND HELP WITH LINEN EXCHANGE. NOTED A SOILED MEPILEX ON BUTTOCKS-REMOVED. EDGES OF WOUND MACERATED. LEFT TR. VSS. CONTINUE POC.
--- NOTE | 2023-01-24 17:39 | NUR ---
SHIFT NOTE PT ALERT. HE HAS VOICED HIS DISCONTENT ABOUT [facility]. HE DOESN'T WANT TO GO BACK TO THEM. HE WANTS TO GO OUT OF TOWN. USING CALL LIGHT. HE VOIDS PER URINAL. STAFF HAS TO PLACE THE URINAL THEN HE CAN HOLD AND REMOVE. VSS. FIRST PART OF THE STRESS TEST DONE. CONTINUE POC.
[2023-01-24 20:14] VITALS: BP 150/76
[2023-01-25 04:11] VITALS: BP 152/80
--- NOTE | 2023-01-25 04:20 | NUR ---
SHIFT SUMMARY PATIENT HAD NO ACUTE CHANGES. AXOX 4 AND BEDREST. DENIES CHEST PAIN, SOB, AND N/V. NPO FOR SECOND PART OF STRESS TEST. CBG 124. ON 2L O2 NC. CONDOM CATH IN PLACE. VSS/AFEBRILE. USES URINAL WITH ASSIST THAN OKAY BY SELF. CALL LIGHT IN REACH. BED IN LOWEST POSITION. WILL CONTINUE TO MONITOR UNTIL DAY SHIFT NURSE ASSUMES CARE.
[2023-01-25 05:42] LABS: BASOPHILS ABSOLUTE AUTO 0.03 K/mm3 (0.00-0.23); BASOPHILS PERCENT AUTO 1 % (0-2); EOSINOPHILS ABSOLUTE AUTO 0.25 K/mm3 (0.00-0.68); EOSINOPHILS PERCENT AUTO 5 % (0-6); Hematocrit 24.7 % (37.0-53.0); Hemoglobin 7.7 g/dL (13.5-17.5); IMMATURE GRAN ABSOLUTE AUTO 0.03 K/mm3 (0.00-0.10); IMMATURE GRAN PERCENT AUTO 1 % (0-1); LYMPHOCYTES ABSOLUTE AUTO 0.92 K/mm3 (0.84-5.20); LYMPHOCYTES PERCENT AUTO 18 % (21-46); MONOCYTES ABSOLUTE AUTO 0.27 K/mm3 (0.16-1.47); MONOCYTES PERCENT AUTO 5 % (4-13); Mean Corpuscular HGB 28.5 pg (26.0-34.0); Mean Corpuscular HGB Conc 31.2 g/dL (31.5-36.5); Mean Corpuscular Volume 92 fL (80-100); Mean Platelet Volume 11.2 fL (9.1-12.4); NEUTROPHILS ABSOLUTE AUTO 3.55 K/mm3 (1.96-9.15); NEUTROPHILS PERCENT AUTO 70 % (41-73); Platelet Count 157 K/mm3 (150-400); RDW Coefficient Variation 14.9 % (11.7-14.2); RDW Standard Deviation 49.1 fL (35.1-46.3); White Blood Cell Count 5.05 K/mm3 (4.00-11.30)
[2023-01-25 06:03] LABS: Magnesium, Blood 2.3 mg/dL (1.6-2.4)
[2023-01-25 06:04] LABS: Albumin, Blood 2.3 g/dL (3.4-5.0); Albumin/Globulin Ratio 0.5 (0.8-1.8); Bilirubin, Total 0.3 mg/dL (0.1-1.0); Bun/Creatinine Ratio 16.5 (12.0-20.0); Calcium, Blood 8.3 mg/dL (8.5-10.1); Creatinine, Blood 1.82 mg/dL (0.60-1.20); Globulin, Blood 4.2 g/dL (2.2-4.0); Phosphorus, Blood 4.3 mg/dL (2.5-4.9); Potassium, Blood 4.1 mmol/L (3.5-5.5); Total Protein, Blood 6.5 g/dL (6.4-8.2)
[2023-01-25 07:58] VITALS: BP 158/81
[2023-01-25] MEDS ORDERED: ENOX40I SC (12:30)
[2023-01-25] MEDS ORDERED: HUMALOG KW100 UNIT/1 SC (12:32)
[2023-01-25] MEDS ORDERED: SPIR25 PO (12:33)
[2023-01-25] MEDS ORDERED: FURO20 PO (12:33)
--- NOTE | 2023-01-25 13:48 | NUR ---
[facility] PT REPORT CALLED TO [facility]. CONTINUE POC.
--- NOTE | 2023-01-25 14:56 | NUR ---
DISCHARGE PT DISCHARGED VIA GURNEY ACCOMPANIED BY EMT STAFF. PT A/O X3 HE IS AGREEABLE TO GO BACK. IV REMOVED WITH CANNULA INTACT. PRESSURE DRESSING APPLIED. CONTINUE POC.
== END 2023-01-25 14:53 ==
LOC: ER 09:09 → MEDS 09:10
PROVIDERS: Emergency Medicine; ADMIT Hospitalist
DX: R07.89 Other chest pain (principal); I13.0 Hypertensive heart and chronic kidney disease with heart failure and stage 1 through stage 4 chronic kidney disease, or unspecified chronic kidney disease; E11.22 Type 2 diabetes mellitus with diabetic chronic kidney disease; N18.32 Chronic kidney disease, stage 3b; I50.33 Acute on chronic diastolic (congestive) heart failure; I25.10 Atherosclerotic heart disease of native coronary artery without angina pectoris; Z95.5 Presence of coronary angioplasty implant and graft; K21.9 Gastro-esophageal reflux disease without esophagitis; Z74.01 Bed confinement status; Z79.82 Long term (current) use of aspirin; Z79.899 Other long term (current) drug therapy
CPT/HCPCS: 36415; 71045; 78452; 80053; 82947; 83735; 83880; 84100; 84484; 85025; 93005; 93010; 93017; 96372; 96374; 99285-25; A9270; A9500; G0378; J0280; J1650; J1815; J1940; J2785

== ENCOUNTER 2023-04-04 02:29 | Emergency (ER) | payer MEDICARE, OTHER ==
[~2023-04-04] VITALS: Ht 175.3 cm; Wt 92.5 kg
[~2023-04-04 02:29] MED LIST changes: +ENOX40I SC; +FURO20 PO; +SPIR25 PO
[2023-04-04 05:39] LABS: BASOPHILS ABSOLUTE AUTO 0.08 K/mm3 (0.00-0.23); BASOPHILS PERCENT AUTO 1 % (0-2); EOSINOPHILS ABSOLUTE AUTO 1.38 K/mm3 (0.00-0.68); EOSINOPHILS PERCENT AUTO 19 % (0-6); Hematocrit 31.2 % (37.0-53.0); Hemoglobin 9.3 g/dL (13.5-17.5); IMMATURE GRAN ABSOLUTE AUTO 0.02 K/mm3 (0.00-0.10); IMMATURE GRAN PERCENT AUTO 0 % (0-1); LYMPHOCYTES ABSOLUTE AUTO 1.67 K/mm3 (0.84-5.20); LYMPHOCYTES PERCENT AUTO 23 % (21-46); MONOCYTES ABSOLUTE AUTO 0.28 K/mm3 (0.16-1.47); MONOCYTES PERCENT AUTO 4 % (4-13); Mean Corpuscular HGB 26.9 pg (26.0-34.0); Mean Corpuscular HGB Conc 29.8 g/dL (31.5-36.5); Mean Corpuscular Volume 90 fL (80-100); Mean Platelet Volume 12.5 fL (9.1-12.4); NEUTROPHILS ABSOLUTE AUTO 3.89 K/mm3 (1.96-9.15); NEUTROPHILS PERCENT AUTO 53 % (41-73); Platelet Count 132 K/mm3 (150-400); RDW Coefficient Variation 16.5 % (11.7-14.2); RDW Standard Deviation 54.1 fL (35.1-46.3); Red Blood Cell Count 3.46 M/mm3 (4.30-5.90); White Blood Cell Count 7.32 K/mm3 (4.00-11.30)
[2023-04-04 05:59] LABS: Albumin, Blood 2.7 g/dL (3.4-5.0); Albumin/Globulin Ratio 0.6 (0.8-1.8); Bilirubin, Total 0.3 mg/dL (0.1-1.0); Bun/Creatinine Ratio 24.2 (12.0-20.0); Calcium, Blood 8.6 mg/dL (8.5-10.1); Creatinine, Blood 2.52 mg/dL (0.60-1.20); Globulin, Blood 4.6 g/dL (2.2-4.0); Potassium, Blood 4.5 mmol/L (3.5-5.5); Total Protein, Blood 7.3 g/dL (6.4-8.2)
[2023-04-04] MEDS ORDERED: CIPR500 PO (07:01)
[2023-04-04] MEDS ORDERED: METR500 PO (07:01)
[2023-04-04 08:17] VITALS: BP 123/87
== END 2023-04-04 08:37 | disposition home or self-care (01) ==
LOC: ER 02:29
PROVIDERS: Emergency Medicine
DX: K52.9 Noninfective gastroenteritis and colitis, unspecified (principal); I12.9 Hypertensive chronic kidney disease with stage 1 through stage 4 chronic kidney disease, or unspecified chronic kidney disease; E11.22 Type 2 diabetes mellitus with diabetic chronic kidney disease; N18.9 Chronic kidney disease, unspecified; D63.1 Anemia in chronic kidney disease; G25.0 Essential tremor; D69.6 Thrombocytopenia, unspecified; Z79.4 Long term (current) use of insulin; Z79.01 Long term (current) use of anticoagulants; Z79.899 Other long term (current) drug therapy; Z79.84 Long term (current) use of oral hypoglycemic drugs
CPT/HCPCS: 74177; 80053; 83690; 85025; 96361; 96374-59; 96375; 96375-59; 99284-25; J2405; J3010; J7030; Q9967

== ENCOUNTER 2023-04-18 09:48 | Emergency (ER) | payer MEDICARE, OTHER ==
[~2023-04-18] VITALS: Ht 175.3 cm; Wt 93.0 kg
[~2023-04-18 09:48] MED LIST changes: +CIPR500 PO; +METR500 PO
[2023-04-18 10:29] LABS: BASOPHILS ABSOLUTE AUTO 0.04 K/mm3 (0.00-0.23); BASOPHILS PERCENT AUTO 1 % (0-2); EOSINOPHILS ABSOLUTE AUTO 1.59 K/mm3 (0.00-0.68); EOSINOPHILS PERCENT AUTO 20 % (0-6); Hematocrit 32.5 % (37.0-53.0); Hemoglobin 9.9 g/dL (13.5-17.5); IMMATURE GRAN ABSOLUTE AUTO 0.03 K/mm3 (0.00-0.10); IMMATURE GRAN PERCENT AUTO 0 % (0-1); LYMPHOCYTES ABSOLUTE AUTO 1.52 K/mm3 (0.84-5.20); LYMPHOCYTES PERCENT AUTO 19 % (21-46); MONOCYTES ABSOLUTE AUTO 0.33 K/mm3 (0.16-1.47); MONOCYTES PERCENT AUTO 4 % (4-13); Mean Corpuscular HGB 27.4 pg (26.0-34.0); Mean Corpuscular HGB Conc 30.5 g/dL (31.5-36.5); Mean Corpuscular Volume 90 fL (80-100); Mean Platelet Volume 12.8 fL (9.1-12.4); NEUTROPHILS PERCENT AUTO 56 % (41-73); Platelet Count 88 K/mm3 (150-400); RDW Coefficient Variation 16.9 % (11.7-14.2); RDW Standard Deviation 56.2 fL (35.1-46.3); Red Blood Cell Count 3.61 M/mm3 (4.30-5.90); White Blood Cell Count 8.01 K/mm3 (4.00-11.30)
[2023-04-18 10:48] LABS: Albumin, Blood 2.7 g/dL (3.4-5.0); Albumin/Globulin Ratio 0.6 (0.8-1.8); Bilirubin, Total 0.2 mg/dL (0.1-1.0); Bun/Creatinine Ratio 17.8 (12.0-20.0); Calcium, Blood 8.6 mg/dL (8.5-10.1); Creatinine, Blood 2.98 mg/dL (0.60-1.20); Globulin, Blood 4.7 g/dL (2.2-4.0); Potassium, Blood 5.7 mmol/L (3.5-5.5); Total Protein, Blood 7.4 g/dL (6.4-8.2)
[2023-04-18 12:00] VITALS: BP 154/82
== END 2023-04-18 12:30 | disposition home or self-care (01) ==
LOC: ER 09:48
PROVIDERS: Emergency Medicine
DX: R10.9 Unspecified abdominal pain (principal); I10 Essential (primary) hypertension; E11.9 Type 2 diabetes mellitus without complications; Z85.3 Personal history of malignant neoplasm of breast; Z79.899 Other long term (current) drug therapy; Z79.4 Long term (current) use of insulin
CPT/HCPCS: 74177; 80053; 83690; 85025; 96361; 96374-59; 96375; 99284-25; J1170; J2405; J7030; Q9967

== ENCOUNTER 2023-05-27 07:45 | Inpatient (IN) | payer MEDICARE, OTHER ==
[~2023-05-27] VITALS: Ht 172.7 cm; Wt 88.8 kg
[2023-05-27] MEDS ORDERED: AMIT25 PO (08:03)
[2023-05-27] MEDS ORDERED: MELATONIN5 M1 PO (08:06)
[2023-05-27 08:07] LABS: BASOPHILS ABSOLUTE AUTO 0.04 K/mm3 (0.00-0.23); BASOPHILS PERCENT AUTO 1 % (0-2); EOSINOPHILS ABSOLUTE AUTO 0.66 K/mm3 (0.00-0.68); EOSINOPHILS PERCENT AUTO 10 % (0-6); Hematocrit 30.7 % (37.0-53.0); Hemoglobin 9.5 g/dL (13.5-17.5); IMMATURE GRAN ABSOLUTE AUTO 0.07 K/mm3 (0.00-0.10); IMMATURE GRAN PERCENT AUTO 1 % (0-1); LYMPHOCYTES ABSOLUTE AUTO 1.63 K/mm3 (0.84-5.20); LYMPHOCYTES PERCENT AUTO 24 % (21-46); MONOCYTES ABSOLUTE AUTO 0.28 K/mm3 (0.16-1.47); MONOCYTES PERCENT AUTO 4 % (4-13); Mean Corpuscular HGB 27.9 pg (26.0-34.0); Mean Corpuscular HGB Conc 30.9 g/dL (31.5-36.5); Mean Corpuscular Volume 90 fL (80-100); Mean Platelet Volume 10.9 fL (9.1-12.4); NEUTROPHILS ABSOLUTE AUTO 4.17 K/mm3 (1.96-9.15); NEUTROPHILS PERCENT AUTO 61 % (41-73); Platelet Count 190 K/mm3 (150-400); RDW Coefficient Variation 16.3 % (11.7-14.2); RDW Standard Deviation 53.5 fL (35.1-46.3); White Blood Cell Count 6.85 K/mm3 (4.00-11.30)
[2023-05-27] MEDS ORDERED: PROMETHAZINE12.5 M1 PO (08:07)
[2023-05-27 08:20] LABS: Albumin, Blood 2.2 g/dL (3.4-5.0); Albumin/Globulin Ratio 0.4 (0.8-1.8); Bilirubin, Total 0.3 mg/dL (0.1-1.0); Bun/Creatinine Ratio 13.9 (12.0-20.0); Calcium, Blood 8.4 mg/dL (8.5-10.1); Creatinine, Blood 2.8 mg/dL (0.60-1.20); Globulin, Blood 5.1 g/dL (2.2-4.0); Potassium, Blood 5.9 mmol/L (3.5-5.5); Total Protein, Blood 7.3 g/dL (6.4-8.2)
[2023-05-27 09:08] LABS: Influenza A, PCR NEGATIVE (NEGATIVE); Influenza B, PCR NEGATIVE (NEGATIVE); Resp Syncytial Virus, PCR NEGATIVE (NEGATIVE); SARS-Cov-2 (COVID-19) PCR, MMC NEGATIVE (NEGATIVE)
[2023-05-27 13:34] LABS: Source, Urine Clean Catch
[2023-05-27 13:37] LABS: Appearance, Urine Cloudy (Clear); Bilirubin, Urine Neg (Neg); Blood, Urine 4+ (Neg); Glucose Qualitative, Urine 4+ (Neg); Ketones, Urine Neg (Neg); Leukocyte Esterase, Urine 3+ (Neg); Nitrite, Urine Neg (Neg); Protein, Urine 2+ (Neg); Specific Gravity, Urine 1.015 (1.003-1.022); Urobilinogen, Urine NORM (Normal)
[2023-05-27 13:52] LABS: Color, Urine Pale Yellow (P-Yellow)
[2023-05-27 13:58] LABS: Amorphous Light (0-Heavy); Bacteria Many /hpf; Squamous Epithelial Cells Rare /hpf (Few); Transitional Epithelial Cells Rare /hpf (0-Rare); White Blood Cells, Urine TNTC /hpf (0-5)
[2023-05-27 19:39] VITALS: BP 126/85
[2023-05-27] MEDS ORDERED: LOPE2C PO (22:19)
[2023-05-27] MEDS ORDERED: Bentyl20 MG PO (22:21)
[2023-05-27] MEDS ORDERED: Florastor250 MG PO (22:23)
[2023-05-28 05:50] LABS: BASOPHILS ABSOLUTE AUTO 0.04 K/mm3 (0.00-0.23); BASOPHILS PERCENT AUTO 1 % (0-2); EOSINOPHILS ABSOLUTE AUTO 0.83 K/mm3 (0.00-0.68); EOSINOPHILS PERCENT AUTO 11 % (0-6); Hematocrit 26.4 % (37.0-53.0); IMMATURE GRAN ABSOLUTE AUTO 0.04 K/mm3 (0.00-0.10); IMMATURE GRAN PERCENT AUTO 1 % (0-1); LYMPHOCYTES ABSOLUTE AUTO 0.99 K/mm3 (0.84-5.20); LYMPHOCYTES PERCENT AUTO 13 % (21-46); MONOCYTES ABSOLUTE AUTO 0.27 K/mm3 (0.16-1.47); MONOCYTES PERCENT AUTO 4 % (4-13); Mean Corpuscular HGB 27.8 pg (26.0-34.0); Mean Corpuscular HGB Conc 30.3 g/dL (31.5-36.5); Mean Corpuscular Volume 92 fL (80-100); Mean Platelet Volume 10.7 fL (9.1-12.4); NEUTROPHILS ABSOLUTE AUTO 5.58 K/mm3 (1.96-9.15); NEUTROPHILS PERCENT AUTO 72 % (41-73); Platelet Count 179 K/mm3 (150-400); RDW Coefficient Variation 16.4 % (11.7-14.2); RDW Standard Deviation 54.9 fL (35.1-46.3); Red Blood Cell Count 2.88 M/mm3 (4.30-5.90); White Blood Cell Count 7.75 K/mm3 (4.00-11.30)
[2023-05-28 06:10] LABS: Albumin/Globulin Ratio 0.4 (0.8-1.8); Bilirubin, Total 0.2 mg/dL (0.1-1.0); Bun/Creatinine Ratio 13.2 (12.0-20.0); Calcium, Blood 8.3 mg/dL (8.5-10.1); Creatinine, Blood 2.8 mg/dL (0.60-1.20); Globulin, Blood 4.6 g/dL (2.2-4.0); Magnesium, Blood 2.7 mg/dL (1.6-2.4); Potassium, Blood 5.4 mmol/L (3.5-5.5); Total Protein, Blood 6.6 g/dL (6.4-8.2)
--- NOTE | 2023-05-28 07:39 | NUR ---
SHIFT SUMMARY DERRICK CALLOWAY WAS ADMITTED FROM THE ED AND ARRIVED ON UNIT AT AROUND 1945 HE WAS ALERT AND FULLY ORIENTED ON ASSESSMENT. ADMIT ASSESSMENT COMPLETED, PHOTOS OF SKIN ASSESSMENT IN CHART. NO ACUTE EVENTS, PT CHANGED TO CONDOM CATH. PT RESTING IN BED AT A LOW POSITION WITH CALL LIGHT IN REACH.
[2023-05-28 07:54] VITALS: BP 124/72
[2023-05-28 15:52] VITALS: BP 109/68
--- NOTE | 2023-05-28 17:48 | NUR ---
SHIFT SUMMARY PT AOX4, ON BEDREST. CONDOMA CATH IN PLACE AND PATENT, HE USES A CONDOM CATH AT BASELINE. HE LIVES AT [facility]. HE HAS HAD NO COMPLAINTS THIS SHIFT, HE HAS REQUESTED MANY BEVERAGES T/O. CALL LIGHT WITHIN REACH, BED IN THE LOWEST POSITION. WILL REPORT TO ONCOMING NURSE.
[2023-05-28 19:35] VITALS: BP 113/68
[2023-05-29 03:09] VITALS: BP 147/75
[2023-05-29 05:21] LABS: BASOPHILS ABSOLUTE AUTO 0.05 K/mm3 (0.00-0.23); BASOPHILS PERCENT AUTO 1 % (0-2); EOSINOPHILS ABSOLUTE AUTO 1.07 K/mm3 (0.00-0.68); EOSINOPHILS PERCENT AUTO 12 % (0-6); Hematocrit 25.9 % (37.0-53.0); IMMATURE GRAN PERCENT AUTO 1 % (0-1); LYMPHOCYTES PERCENT AUTO 12 % (21-46); MONOCYTES ABSOLUTE AUTO 0.45 K/mm3 (0.16-1.47); MONOCYTES PERCENT AUTO 5 % (4-13); Mean Corpuscular HGB Conc 30.9 g/dL (31.5-36.5); Mean Corpuscular Volume 91 fL (80-100); Mean Platelet Volume 9.8 fL (9.1-12.4); NEUTROPHILS ABSOLUTE AUTO 6.29 K/mm3 (1.96-9.15); NEUTROPHILS PERCENT AUTO 69 % (41-73); Platelet Count 170 K/mm3 (150-400); RDW Coefficient Variation 16.3 % (11.7-14.2); RDW Standard Deviation 53.6 fL (35.1-46.3); Red Blood Cell Count 2.86 M/mm3 (4.30-5.90); White Blood Cell Count 9.06 K/mm3 (4.00-11.30)
[2023-05-29 05:40] LABS: Anion Gap 4 mmol/L (6-16); Blood Urea Nitrogen 32 mg/dL (8-24); Bun/Creatinine Ratio 11.5 (12.0-20.0); CO2, Blood 25 mmol/L (21-32); Calcium, Blood 8.4 mg/dL (8.5-10.1); Chloride, Blood 114 mmol/L (98-108); Creatinine, Blood 2.78 mg/dL (0.60-1.20); Glomerular Filtration Rate 26 (60-); Glucose, Blood 87 mg/dL (70-99); Magnesium, Blood 2.4 mg/dL (1.6-2.4); Phosphorus, Blood 3.8 mg/dL (2.5-4.9); Potassium, Blood 4.7 mmol/L (3.5-5.5); Sodium, Blood 143 mmol/L (136-145)
--- NOTE | 2023-05-29 05:56 | NUR ---
SHIFT SUMMARY: PT IS ADMITTED FOR CYSTITIS AND IS A FULL CODE. IS ALERT AND ABLE TO MAKE NEEDS KNOWN. IS A 1P WITH MOST ADLs. NEEDS A LIFT TO GET OUT OF BED. DENIES PAIN OR DISCOMFORT WHEN ASKED. IV TO RIGHT AC IS PATENT WITH DRESSING THAT IS CDI. CONDOM CATH IN PLACE AND DRAINING CLEAR BO URINE IN MODERATE AMOUNTS.
[2023-05-29 08:06] VITALS: BP 145/82
--- NOTE | 2023-05-29 14:51 | NUR ---
NOTICED THAT PT'S LEFT EYELID HAS SOME MILD REDNESS AND IS SLIGHTLY SWOLLEN. DISCUSSED WITH PT WHO STATES THAT HE IS LEGALLY BLIND AND DOES NOT FEEL ANY ITCHING OR IRRITATION TO HIS EYE.
[2023-05-29 15:50] LABS: Influenza A, PCR NEGATIVE (NEGATIVE); Influenza B, PCR NEGATIVE (NEGATIVE); Resp Syncytial Virus, PCR NEGATIVE (NEGATIVE); SARS-Cov-2 (COVID-19) PCR, MMC NEGATIVE (NEGATIVE)
--- NOTE | 2023-05-29 16:25 | NUR ---
RECEIVED CALL FROM PT'S SISTER. UPDATED HER THAT PT IS SCHEDULED TO RETURN TO [facility] TODAY AT 1600. IV REMOVED FROM PT'S RIGHT AC. DISCUSSED TRANSPORTATION WITH PT WHO STATED THAT HE WOULD BE ABLE TO TOLERATE SITTING UP IN A WHEELCHAIR FOR TRANSPORATION HOME. TRANSFERED PT VIA LIFT TO WHEELCHAIR. NO PERSONAL BELONGINGS FOUND IN PT'S ROOM. DISCHARGED TO [facility] VIA [facility] TRANSPORTATION.
[2023-05-29] MEDS ORDERED: AMOCLA875 PO (17:10)
[2023-05-29] MEDS ORDERED: LOKELMA10 GM PO (17:10)
== END 2023-05-29 16:28 | DRG 689 ==
LOC: ER 07:45 → MEDS 17:05 → ENPENDDIS 05-29 13:14 → MEDS 05-29 16:28
PROVIDERS: Emergency Medicine; Family Medicine; ADMIT Internal Medicine
DX: N30.80 Other cystitis without hematuria (principal); J18.9 Pneumonia, unspecified organism; I50.32 Chronic diastolic (congestive) heart failure; I13.0 Hypertensive heart and chronic kidney disease with heart failure and stage 1 through stage 4 chronic kidney disease, or unspecified chronic kidney disease; N18.4 Chronic kidney disease, stage 4 (severe); E87.5 Hyperkalemia; I25.10 Atherosclerotic heart disease of native coronary artery without angina pectoris; E66.01 Morbid (severe) obesity due to excess calories; N40.1 Benign prostatic hyperplasia with lower urinary tract symptoms; R33.8 Other retention of urine; E11.22 Type 2 diabetes mellitus with diabetic chronic kidney disease; E11.51 Type 2 diabetes mellitus with diabetic peripheral angiopathy without gangrene; F32.9 Major depressive disorder, single episode, unspecified; F41.1 Generalized anxiety disorder; M10.9 Gout, unspecified; E78.5 Hyperlipidemia, unspecified; Z85.3 Personal history of malignant neoplasm of breast; Z89.422 Acquired absence of other left toe(s); Z68.30 Body mass index [BMI] 30.0-30.9, adult; Z11.52 Encounter for screening for COVID-19; Z95.5 Presence of coronary angioplasty implant and graft; Z90.13 Acquired absence of bilateral breasts and nipples; Z79.4 Long term (current) use of insulin; Z79.82 Long term (current) use of aspirin
CPT/HCPCS: 0241U; 36415; 71045; 74176; 80053; 80069; 81001; 82947; 83036; 83605; 83690; 83735; 85025; 87077; 87086; 87186; 93005; 93010; 96365; 96366; 96367; 96375; 99285-25; A9270; J0780; J1650; J1815; J2543; J3475; J7030; J7050

== ENCOUNTER 2023-05-31 10:32 | Inpatient (IN) | payer MEDICARE, OTHER ==
[~2023-05-31] VITALS: Ht 175.3 cm; Wt 88.9 kg
[~2023-05-31 10:32] MED LIST changes: +AMIT25 PO; +AMOCLA875 PO; +Bentyl20 MG PO; +Florastor250 MG PO; +LOKELMA10 GM PO; +LOPE2C PO; +MELATONIN5 M1 PO; +PROMETHAZINE12.5 M1 PO
[2023-05-31 12:17] LABS: BASOPHILS ABSOLUTE AUTO 0.05 K/mm3 (0.00-0.23); BASOPHILS PERCENT AUTO 0 % (0-2); EOSINOPHILS ABSOLUTE AUTO 0.01 K/mm3 (0.00-0.68); EOSINOPHILS PERCENT AUTO 0 % (0-6); Hematocrit 36.3 % (37.0-53.0); Hemoglobin 11.4 g/dL (13.5-17.5); IMMATURE GRAN ABSOLUTE AUTO 0.14 K/mm3 (0.00-0.10); IMMATURE GRAN PERCENT AUTO 1 % (0-1); LYMPHOCYTES ABSOLUTE AUTO 0.78 K/mm3 (0.84-5.20); LYMPHOCYTES PERCENT AUTO 6 % (21-46); MONOCYTES ABSOLUTE AUTO 0.18 K/mm3 (0.16-1.47); MONOCYTES PERCENT AUTO 1 % (4-13); Mean Corpuscular HGB 28.3 pg (26.0-34.0); Mean Corpuscular HGB Conc 31.4 g/dL (31.5-36.5); Mean Corpuscular Volume 90 fL (80-100); NEUTROPHILS PERCENT AUTO 92 % (41-73); Platelet Count 262 K/mm3 (150-400); RDW Coefficient Variation 15.9 % (11.7-14.2); RDW Standard Deviation 52.7 fL (35.1-46.3); Red Blood Cell Count 4.03 M/mm3 (4.30-5.90); White Blood Cell Count 13.96 K/mm3 (4.00-11.30)
[2023-05-31 12:30] LABS: Albumin, Blood 2.3 g/dL (3.4-5.0); Albumin/Globulin Ratio 0.4 (0.8-1.8); Bilirubin, Direct 0.1 mg/dL (0.0-0.3); Bilirubin, Indirect 0.2 mg/dL (0.1-0.7); Bilirubin, Total 0.3 mg/dL (0.1-1.0); Bun/Creatinine Ratio 13.5 (12.0-20.0); Calcium, Blood 8.8 mg/dL (8.5-10.1); Creatinine, Blood 2.29 mg/dL (0.60-1.20); Magnesium, Blood 2.4 mg/dL (1.6-2.4); Potassium, Blood 4.9 mmol/L (3.5-5.5); Total Protein, Blood 8.3 g/dL (6.4-8.2)
[2023-05-31 16:01] VITALS: BP 178/104
[2023-05-31] MEDS ORDERED: DULCOLAX400 MG/5 M PO (16:17)
[2023-05-31] MEDS ORDERED: BISA10S PR (16:17)
[2023-05-31] MEDS ORDERED: MIRALAX17 GM PO (16:18)
[2023-05-31] MEDS ORDERED: ONDA4 PO (16:19)
[2023-05-31] MEDS ORDERED: POLYTRIM EYE RIGHTEYE (16:21)
[2023-05-31] MEDS ORDERED: ACET500 PO (16:23)
[2023-05-31 20:21] VITALS: BP 137/93
[2023-06-01 00:14] VITALS: BP 183/109
[2023-06-01 02:00] VITALS: BP 157/96
--- NOTE | 2023-06-01 05:00 | NUR ---
SHIFT SUMMARY PATIENT A/Ox3, SLOW TO RESPOND, FLAT AFFECT. DENIES PAIN/DISCOMFORT AT TIME OF ASSESSMENT. JUST AFTER MIDNIGHT, PATIENT C/O EPIGASTRIC/STERNAL PAIN, NON-RADIATING. OBSERVED PATIENT DRY HEAVING, DENIES FEELING NAUSEOUS, THOUGH DOES APPEAR TO BE, DID AGREE TO PRN ZOFRAN LATER ON. PATIENT EXPRESSED FEELING ANXIOUS BUT DECLINED TO ELABORATE TO WHY, PRESENTING A CHILD-LIKE AFFECT, ODD BEHAVIOR, CALLING OUT AT TIMES. PROVIDER NOTIFIED, ADDED NEW ORDERS FOR PRN HYDRALAZINE 10MG FOR ELEVATED BP AND 1 TIME ORDER OF ATARAX 25MG FOR ANXIETY, TOLERATED WELL. RESTING IN BED AT THIS TIME IN NO ACUTE DISTRESS, TOLERATED AM LAB DRAW WELL. CALL LIGHT WITHIN REACH.
[2023-06-01 05:12] LABS: BASOPHILS ABSOLUTE AUTO 0.04 K/mm3 (0.00-0.23); BASOPHILS PERCENT AUTO 0 % (0-2); EOSINOPHILS PERCENT AUTO 0 % (0-6); Hematocrit 31.1 % (37.0-53.0); Hemoglobin 9.8 g/dL (13.5-17.5); IMMATURE GRAN ABSOLUTE AUTO 0.14 K/mm3 (0.00-0.10); IMMATURE GRAN PERCENT AUTO 1 % (0-1); LYMPHOCYTES ABSOLUTE AUTO 0.94 K/mm3 (0.84-5.20); LYMPHOCYTES PERCENT AUTO 6 % (21-46); MONOCYTES ABSOLUTE AUTO 0.36 K/mm3 (0.16-1.47); MONOCYTES PERCENT AUTO 2 % (4-13); Mean Corpuscular HGB Conc 31.5 g/dL (31.5-36.5); Mean Corpuscular Volume 89 fL (80-100); Mean Platelet Volume 9.4 fL (9.1-12.4); NEUTROPHILS ABSOLUTE AUTO 14.64 K/mm3 (1.96-9.15); NEUTROPHILS PERCENT AUTO 91 % (41-73); Platelet Count 251 K/mm3 (150-400); RDW Coefficient Variation 16.1 % (11.7-14.2); RDW Standard Deviation 52.2 fL (35.1-46.3); White Blood Cell Count 16.12 K/mm3 (4.00-11.30)
[2023-06-01 07:45] VITALS: BP 127/82
[2023-06-01 16:28] VITALS: BP 130/81
--- NOTE | 2023-06-01 17:41 | NUR ---
SHIFT SUMMARY PT A&OX4 DURING AM ASSESSMENT W/ FLAT/WITHDRAWN AFFECT AND DISPLAYED INTERMITTENT CONFUSION T/O SHIFT. PT CALLED OUT MULTIPLE TIMES T/O SHIFT, REQUIRING REORIENTATION TO THE CALL LIGHT. PT C/O CHEST PAIN R/T CONSTANT HICCUPS T/O SHIFT, DR. HOWELL NOTIFIED AND NO ORDERS GIVEN. PT REFUSED PHYSICAL AND OCCUPATIONAL THERAPY, IS DEPENDENT ON CARE, SEE THERAPY NOTES. PT DENIED NAUSEA AT BEGINNING OF SHIFT, STATED THAT HE "JUST DON'T FEEL GOOD.", LATER ADMITTED NAUSEA TO [facility] AND MYSELF, MEDICATED PER EMAR. CALL LIGHT WITHIN REACH AND PT ABLE TO MAKE NEEDS KNOWN.
[2023-06-01 19:25] VITALS: BP 137/83
--- NOTE | 2023-06-02 03:40 | NUR ---
SHIFT SUMMARY PATIENT A/Ox3, SLOW TO RESPOND, FLAT AFFECT. TOLERATED NEW Rx OF BACLOFEN WELL, LESS C/O HICCUPS. NO ACUTE CHANGES NOTED OVERNIGHT, CALL LIGHT WITHIN REACH.
[2023-06-02 04:27] VITALS: BP 160/102
[2023-06-02 05:15] LABS: BASOPHILS ABSOLUTE AUTO 0.04 K/mm3 (0.00-0.23); BASOPHILS PERCENT AUTO 0 % (0-2); EOSINOPHILS ABSOLUTE AUTO 0.01 K/mm3 (0.00-0.68); EOSINOPHILS PERCENT AUTO 0 % (0-6); Hematocrit 30.2 % (37.0-53.0); Hemoglobin 9.5 g/dL (13.5-17.5); IMMATURE GRAN ABSOLUTE AUTO 0.13 K/mm3 (0.00-0.10); IMMATURE GRAN PERCENT AUTO 1 % (0-1); LYMPHOCYTES ABSOLUTE AUTO 1.24 K/mm3 (0.84-5.20); LYMPHOCYTES PERCENT AUTO 9 % (21-46); MONOCYTES ABSOLUTE AUTO 0.46 K/mm3 (0.16-1.47); MONOCYTES PERCENT AUTO 3 % (4-13); Mean Corpuscular HGB 27.8 pg (26.0-34.0); Mean Corpuscular HGB Conc 31.5 g/dL (31.5-36.5); Mean Corpuscular Volume 88 fL (80-100); Mean Platelet Volume 9.6 fL (9.1-12.4); NEUTROPHILS ABSOLUTE AUTO 12.03 K/mm3 (1.96-9.15); NEUTROPHILS PERCENT AUTO 87 % (41-73); Platelet Count 254 K/mm3 (150-400); RDW Coefficient Variation 16.4 % (11.7-14.2); Red Blood Cell Count 3.42 M/mm3 (4.30-5.90); White Blood Cell Count 13.91 K/mm3 (4.00-11.30)
[2023-06-02 05:56] LABS: Albumin, Blood 2.1 g/dL (3.4-5.0); Anion Gap 6 mmol/L (6-16); Blood Urea Nitrogen 45 mg/dL (8-24); CO2, Blood 26 mmol/L (21-32); Chloride, Blood 109 mmol/L (98-108); Creatinine, Blood 3.21 mg/dL (0.60-1.20); Glomerular Filtration Rate 22 (60-); Glucose, Blood 200 mg/dL (70-99); Phosphorus, Blood 4.2 mg/dL (2.5-4.9); Potassium, Blood 4.1 mmol/L (3.5-5.5); Sodium, Blood 141 mmol/L (136-145)
[2023-06-02 07:36] VITALS: BP 172/106
[2023-06-02 15:43] VITALS: BP 165/109
--- NOTE | 2023-06-02 19:11 | NUR ---
SHIFT SUMMARY A&O X 4, VSS. PLEASANT & COOPERATIVE WITH ALL CARE. LOW GRADE TEMP NOTED. DRESSING CHANGE TO OPEN R GLUTEAL WOUND DONE. WOUND BED BEEFY RED WITH MODERATE SEROSANGUINOUS DRAINAGE NOTED ON OLD DRESSING. WOUND PACKED WITH ROLL OF KERLEX SOAKED WITH STERILE WATER. SECURED WITH 4X4'S AND ABD'S, SECURED WITH MEDIPORE TAPE. THIS AFTERNOON'S VITALS REVEALED A TEMP OF >101. PLACED CALL TO DR. HERNANDEZ, NOTIFIED AND AWARE. PT HAD PARTIAL SHOWER. WOUND AND DRESSING KEPT DRY WITH ASSIST OF THIS RN & SENIOR SALES OPERATIONS ANALYST. AT SHIFT CHANGE PT REQUESTED TEMP BE CHECKED AGAIN, FACE FLUSHED AND PT STATES NOT HUNGRY & MORE TIRED THAN HAS BEEN, TEMP WAS 103.1. PT IS AWAITING TRANSFER TO [facility] FOR FURTHER WORKUP & SURGERY.
--- NOTE | 2023-06-02 19:25 | NUR ---
SHIFT SUMMARY A&O X 3, VSS. IS PLEASANT & COOPERATIVE WITH ALL CARE. WOUND DRESSING CHANGE DONE PER MD ORDERS. THIS AFTER NOON TEMPS ELEVATED >100.0. PLACED CALL TO DR. HERNANDEZ, NOTIFIED AND AWARE. AT SHIFT CHANGE TEMP INCREASED TO 103.1. TYLENOL GIVEN PER EMAR SCHEDULED. PT IS AWAITING COBRA TRANSFER TO [facility].
--- NOTE | 2023-06-02 19:43 | NUR ---
SHIFT SUMMARY A&O X 3, VSS. PT RESTED COMFORTABLY MOST OF SHIFT. NO COMPLAINTS. NO HICCUPS NOTED. PT REFUSED MEALS TODAY. IS INCONTINENT OF BOWEL & URINE. WILL LIKELY RETURN TO [facility] WHEN READY FOR DC.
[2023-06-02 19:53] VITALS: BP 156/97
[2023-06-03 02:26] VITALS: BP 156/100
[2023-06-03 05:04] LABS: BASOPHILS ABSOLUTE AUTO 0.05 K/mm3 (0.00-0.23); BASOPHILS PERCENT AUTO 0 % (0-2); EOSINOPHILS ABSOLUTE AUTO 0.08 K/mm3 (0.00-0.68); EOSINOPHILS PERCENT AUTO 1 % (0-6); Hematocrit 30.2 % (37.0-53.0); Hemoglobin 9.4 g/dL (13.5-17.5); IMMATURE GRAN ABSOLUTE AUTO 0.13 K/mm3 (0.00-0.10); IMMATURE GRAN PERCENT AUTO 1 % (0-1); LYMPHOCYTES ABSOLUTE AUTO 1.14 K/mm3 (0.84-5.20); LYMPHOCYTES PERCENT AUTO 8 % (21-46); MONOCYTES ABSOLUTE AUTO 0.57 K/mm3 (0.16-1.47); MONOCYTES PERCENT AUTO 4 % (4-13); Mean Corpuscular HGB 27.7 pg (26.0-34.0); Mean Corpuscular HGB Conc 31.1 g/dL (31.5-36.5); Mean Corpuscular Volume 89 fL (80-100); NEUTROPHILS ABSOLUTE AUTO 12.87 K/mm3 (1.96-9.15); NEUTROPHILS PERCENT AUTO 87 % (41-73); Platelet Count 196 K/mm3 (150-400); RDW Coefficient Variation 16.1 % (11.7-14.2); RDW Standard Deviation 52.1 fL (35.1-46.3); Red Blood Cell Count 3.39 M/mm3 (4.30-5.90); White Blood Cell Count 14.84 K/mm3 (4.00-11.30)
[2023-06-03 05:38] LABS: Albumin, Blood 2.1 g/dL (3.4-5.0); Anion Gap 6 mmol/L (6-16); Blood Urea Nitrogen 51 mg/dL (8-24); Bun/Creatinine Ratio 13.1 (12.0-20.0); CO2, Blood 27 mmol/L (21-32); Calcium, Blood 8.1 mg/dL (8.5-10.1); Chloride, Blood 109 mmol/L (98-108); Creatinine, Blood 3.88 mg/dL (0.60-1.20); Glomerular Filtration Rate 17 (60-); Glucose, Blood 139 mg/dL (70-99); Magnesium, Blood 2.3 mg/dL (1.6-2.4); Phosphorus, Blood 4.5 mg/dL (2.5-4.9); Potassium, Blood 3.9 mmol/L (3.5-5.5); Sodium, Blood 142 mmol/L (136-145)
--- NOTE | 2023-06-03 07:22 | NUR ---
SHIFT SUMMARY. NO ACUTE CHANGES. PATIENT IS A/OX 3-4. PATIENT CALLS APPROPRIATELY. PATIENT HAD EPISODE OF HICCUPS THAT LASTED A COUPLE MINUTES BREFORE RESOLVING. PATIENT NEEDING QUESTIONS SIMPLIFIED AT TIMES AND EXPLAINED-PATIENT DID WELL WITH MORE DETAILED STRAIGHT FORWARD QUESTIONS. BED IS LOCKED IN THE LOWEST POSITION WITH CALL LIGHT IN REACH. NO S/S OF DISTRESS NOTED.
[2023-06-03 07:39] VITALS: BP 138/93
[2023-06-03 15:09] VITALS: BP 121/84
--- NOTE | 2023-06-03 18:48 | NUR ---
SHIFT SUMMARY A&O X 3, VSS. IS PLEASANT & COOPERATIVE WITH ALL CARE. HAS RESTED IN BED, RESP EVEN & UNLABORED. APPETITE IS POOR. HAS NOT BEEN EATING, WILL DRINK ENSURES. TAKES MEDS MD ORDERED. SEEMS DEPRESSED, MENTIONED TODAY THAT HIS DAD 2 WEEKS AGO. WILL LIKELY RETURN TO [facility] WHEN READY FOR DC.
[2023-06-03 20:02] VITALS: BP 141/82
[2023-06-04 05:00] VITALS: BP 129/82
[2023-06-04 05:04] LABS: BASOPHILS ABSOLUTE AUTO 0.04 K/mm3 (0.00-0.23); BASOPHILS PERCENT AUTO 0 % (0-2); EOSINOPHILS PERCENT AUTO 3 % (0-6); Hematocrit 29.7 % (37.0-53.0); Hemoglobin 9.2 g/dL (13.5-17.5); IMMATURE GRAN PERCENT AUTO 1 % (0-1); LYMPHOCYTES ABSOLUTE AUTO 1.19 K/mm3 (0.84-5.20); LYMPHOCYTES PERCENT AUTO 12 % (21-46); MONOCYTES ABSOLUTE AUTO 0.32 K/mm3 (0.16-1.47); MONOCYTES PERCENT AUTO 3 % (4-13); Mean Corpuscular HGB 27.8 pg (26.0-34.0); Mean Corpuscular Volume 90 fL (80-100); Mean Platelet Volume 10.5 fL (9.1-12.4); NEUTROPHILS ABSOLUTE AUTO 7.88 K/mm3 (1.96-9.15); NEUTROPHILS PERCENT AUTO 80 % (41-73); Platelet Count 193 K/mm3 (150-400); RDW Coefficient Variation 16.1 % (11.7-14.2); RDW Standard Deviation 52.5 fL (35.1-46.3); Red Blood Cell Count 3.31 M/mm3 (4.30-5.90); White Blood Cell Count 9.83 K/mm3 (4.00-11.30)
[2023-06-04 05:34] LABS: Albumin, Blood 2.1 g/dL (3.4-5.0); Anion Gap 6 mmol/L (6-16); Blood Urea Nitrogen 56 mg/dL (8-24); Bun/Creatinine Ratio 13.5 (12.0-20.0); CO2, Blood 29 mmol/L (21-32); Chloride, Blood 107 mmol/L (98-108); Creatinine, Blood 4.16 mg/dL (0.60-1.20); Glomerular Filtration Rate 16 (60-); Glucose, Blood 136 mg/dL (70-99); Magnesium, Blood 2.3 mg/dL (1.6-2.4); Phosphorus, Blood 4.8 mg/dL (2.5-4.9); Potassium, Blood 3.4 mmol/L (3.5-5.5); Sodium, Blood 142 mmol/L (136-145)
--- NOTE | 2023-06-04 06:51 | NUR ---
SHIFT SUMMARY NOC PT A/O X 3. PLEASANT AND COOPERATIVE WITH CARE. NO ACUTE CHANGES TO REPORT. PT HAS HAD NO C/O OF HICCUPS DURING SHIFT. PT HAS TWO SMALL OPEN SORES ON SACRAL AREA, PHOTO DOCUMENTATION ATTEMPTED, BUT THERE WAS TECHNICAL DIFFICULTIES WITH EQUIPMENT, BARRIER CREAM AND MEPILEX DRESSING IN PLACE C/D/I. PT HAS SLEPT MAJORITY OF SHIFT PT HAS HEEL PROTECTORS IN PLACE. PT REPORTS DR DISCUSSED POSSIBLE DISCHARGE BACK TO [facility] PENDING AM LAB IMPROVEMENT. PT IS CURRENTLY RESTING WITH BED IN LOWEST POSITION, AND CALL LIGHT WITHIN REACH.
[2023-06-04 07:48] VITALS: BP 149/86
[2023-06-04 15:59] VITALS: BP 126/90
[2023-06-04 19:32] VITALS: BP 134/82
--- NOTE | 2023-06-04 19:58 | NUR ---
SUMMARY- PT A/O X3, CONCRETE. HAS A LABILE MOOD, SOMETIMES CRIES. UNSURE OF HIS PROGNOSIS, RN TRIED TO ENCOURAGE HIM AND REASSURE HIM. PT IS BED BOUND, ROUTINE TURNS AND INCONT CHANGES. PT DID NOT HAVE A VOID THIS SHIFT, ST CATHED AT 1000 FOR URINE SPECIMEN FOR 350ML, MED BO WITH SEDIMANT AT THE END. PT STATES SOMETIMES HE FEELS KIDNEY PAIN COME AND GO. PT STARTED ON NS AT 50ML/HR. BRIANNA BEGAN CONSULTING TODAY. KCL REPLACED. ENCOURAGED PT TO DRINK MORE FLUIDS TODAY. PT HAS NO EDEMA AND LUNGS CLEAR. SKIN CLEANED AROUND CASSIE AND BOTTOM, ALL INCACT EXCEPT A SMALL BREAKDOWN, BUTTOCKS, BARRIER CREAM APPLIED (TOOK OFF MEPILEX, IT WAS SOILED) HELD REGLAN BECAUSE PT HED LG LOOSE STOOL THIS AM. STATES MIN APPETIED, AND ONLY HAD BITES OF MEALS WITH SET UP AND ENCOURAGEMENT. BUT TOLERATING FAIR AMOUNT OF FLUIDS. REPORTED TO NOC RN'S
[2023-06-05 02:18] VITALS: BP 143/70
--- NOTE | 2023-06-05 06:30 | NUR ---
REPORT RECEIVED VERIFIED PT A/O X2 ANSWERS APPROPRIATLY BUT DOESNT SEEM TO BE ABLE TO MAKE NEEDS KNOWN. REPOSISTIONED PT SEVERAL TIME AND IS VERY COOPERATIVE BUT CRIES OUT IN PAIN AND THEN SAYS HES FINE AND THERE IS NOTHING WRONG. PT SOMETIMES DOESNT EVEN REALIZE THAT HE IS SCREAMING. WHEN I ASK WHAT HURTS HE SAYS NOTHING AND HE IS DOING FINE. NO CHANGE IN CONDTION, PT FINALLY SLEEPING SO WILL CONTINUE TO LET HIM SLEEP. DR REED IN AT BEDSIDE AND STILL NO CHANGE IN PT CONDITION, WILL CONT MONITORING
[2023-06-05 07:38] VITALS: BP 145/90
[2023-06-05 08:14] LABS: BASOPHILS ABSOLUTE AUTO 0.05 K/mm3 (0.00-0.23); BASOPHILS PERCENT AUTO 1 % (0-2); EOSINOPHILS ABSOLUTE AUTO 0.63 K/mm3 (0.00-0.68); EOSINOPHILS PERCENT AUTO 8 % (0-6); Hemoglobin 8.4 g/dL (13.5-17.5); IMMATURE GRAN ABSOLUTE AUTO 0.07 K/mm3 (0.00-0.10); IMMATURE GRAN PERCENT AUTO 1 % (0-1); LYMPHOCYTES ABSOLUTE AUTO 1.29 K/mm3 (0.84-5.20); LYMPHOCYTES PERCENT AUTO 16 % (21-46); MONOCYTES ABSOLUTE AUTO 0.29 K/mm3 (0.16-1.47); MONOCYTES PERCENT AUTO 4 % (4-13); Mean Corpuscular HGB 27.9 pg (26.0-34.0); Mean Corpuscular HGB Conc 31.1 g/dL (31.5-36.5); Mean Corpuscular Volume 90 fL (80-100); Mean Platelet Volume 10.1 fL (9.1-12.4); NEUTROPHILS ABSOLUTE AUTO 5.73 K/mm3 (1.96-9.15); NEUTROPHILS PERCENT AUTO 71 % (41-73); Platelet Count 152 K/mm3 (150-400); RDW Coefficient Variation 15.6 % (11.7-14.2); RDW Standard Deviation 51.3 fL (35.1-46.3); Red Blood Cell Count 3.01 M/mm3 (4.30-5.90); White Blood Cell Count 8.06 K/mm3 (4.00-11.30)
[2023-06-05 08:37] LABS: Albumin, Blood 2.1 g/dL (3.4-5.0); Albumin/Globulin Ratio 0.5 (0.8-1.8); Bilirubin, Total 0.2 mg/dL (0.1-1.0); Bun/Creatinine Ratio 13.1 (12.0-20.0); Calcium, Blood 7.9 mg/dL (8.5-10.1); Creatinine, Blood 4.06 mg/dL (0.60-1.20); Globulin, Blood 4.2 g/dL (2.2-4.0); Phosphorus, Blood 4.4 mg/dL (2.5-4.9); Potassium, Blood 3.3 mmol/L (3.5-5.5); Total Protein, Blood 6.3 g/dL (6.4-8.2)
[2023-06-05 16:09] VITALS: BP 178/74
--- NOTE | 2023-06-05 16:51 | NUR ---
SHIFT SUMMARY: PT ORIENTED TO SELF. PT WOULD REPLY "NELSON" TO MOST ORIENTATION QUESTIONS. PLEASANT AND COOPERATIVE WITH CARE. OCCASIONALLY HOLLERS OUT FOR HELP. C/O BACK PAIN SEVERAL TIMES THIS SHIFT. ATTEMPTED REPOSITION, MEDICATION, AND REST W/ LITTLE RESOLUTION. STILL HAVING MINIMAL APPETITE. PT WORKED WITH PT THIS SHIFT ABLE TO SIT ON SIDE OF BED AND COMPLETE SOME ADL'S. ATTEMPTED TO CALL [facility] TO OBTAIN PT BASELINE REGARDING MOBILITY AND ADL'S. SISTER ARRIVED THIS AM VERY EMOTIONAL. HEEL PROTECTORS IN PLACE. REFUSED PILLOWS TO PROTECT COCCYX FROM FURTHER BREAKDOWN. CALL LIGHT IN REACH. BED IN LOWEST POSITION.
--- NOTE | 2023-06-05 17:01 | NUR ---
Pt. is resting in his bed but responds when I enter the room. Pt. welcomes my visit. Facilitated a life review. Pt. displayed evidence of confusion as he attempted to put together his thoughts and words. Listened with patience and empathy. Pt. displayed evidence of interest in our spiritual care visit and asked several questions throughout the visit. Prayed with the Pt. when he gave this test baker permission. The Pt. verbalized gratitude for the spiritual care visit, and welcomed this test baker to return.
[2023-06-05 19:59] VITALS: BP 138/83
[2023-06-06 03:16] VITALS: BP 145/90
[2023-06-06 05:15] LABS: BASOPHILS ABSOLUTE AUTO 0.04 K/mm3 (0.00-0.23); BASOPHILS PERCENT AUTO 1 % (0-2); EOSINOPHILS ABSOLUTE AUTO 0.68 K/mm3 (0.00-0.68); EOSINOPHILS PERCENT AUTO 9 % (0-6); Hemoglobin 8.2 g/dL (13.5-17.5); IMMATURE GRAN ABSOLUTE AUTO 0.07 K/mm3 (0.00-0.10); IMMATURE GRAN PERCENT AUTO 1 % (0-1); LYMPHOCYTES ABSOLUTE AUTO 1.33 K/mm3 (0.84-5.20); LYMPHOCYTES PERCENT AUTO 17 % (21-46); MONOCYTES ABSOLUTE AUTO 0.32 K/mm3 (0.16-1.47); MONOCYTES PERCENT AUTO 4 % (4-13); Mean Corpuscular HGB 28.1 pg (26.0-34.0); Mean Corpuscular HGB Conc 31.5 g/dL (31.5-36.5); Mean Corpuscular Volume 89 fL (80-100); Mean Platelet Volume 10.9 fL (9.1-12.4); NEUTROPHILS ABSOLUTE AUTO 5.34 K/mm3 (1.96-9.15); NEUTROPHILS PERCENT AUTO 69 % (41-73); Platelet Count 161 K/mm3 (150-400); RDW Coefficient Variation 15.6 % (11.7-14.2); RDW Standard Deviation 50.5 fL (35.1-46.3); Red Blood Cell Count 2.92 M/mm3 (4.30-5.90); White Blood Cell Count 7.78 K/mm3 (4.00-11.30)
[2023-06-06 05:42] LABS: Albumin, Blood 2.1 g/dL (3.4-5.0); Anion Gap 7 mmol/L (6-16); Blood Urea Nitrogen 45 mg/dL (8-24); Bun/Creatinine Ratio 14.7 (12.0-20.0); CO2, Blood 25 mmol/L (21-32); Calcium, Blood 7.7 mg/dL (8.5-10.1); Chloride, Blood 110 mmol/L (98-108); Creatinine, Blood 3.07 mg/dL (0.60-1.20); Glomerular Filtration Rate 23 (60-); Glucose, Blood 156 mg/dL (70-99); Magnesium, Blood 2.1 mg/dL (1.6-2.4); Phosphorus, Blood 4.1 mg/dL (2.5-4.9); Potassium, Blood 3.6 mmol/L (3.5-5.5); Sodium, Blood 142 mmol/L (136-145)
--- NOTE | 2023-06-06 06:49 | NUR ---
PT DOING MUCH BETTER TODAY, VERY EXCITED TO SEE HIS SISTER PT NOT LOOKING DEPRESSED AND IS VERY TALKATIVE. PT HAS CALLED SEVERAL TIMES TO REPORT BM WHICH IS BETTER THEN DAYS BEFORE WHERE HE HAD NO CLUE IF HE HAD GONE. NEW IV STARTED TO RIGHT FOREARM. WILL CONT TO MONITOR
[2023-06-06 07:15] VITALS: BP 132/87
--- NOTE | 2023-06-06 09:52 | NUR ---
RN NOTE MR PINZON IS FORGETFUL, ASKING REPETATIVE QUESTIONS ABOUT HIS SISTER COMING TO VISIT HIM. HE IS CALM AND ANSWERS QUESTIONS APPROPRIATELY. PIV INFILTRATED, PLAN FOR POWER GLIDE PLACEMENT THIS AM. 3 EPISODES OF DIARRHEA OVERNIGHT PER REPORT. DR CROFT INFORMED AND REGLAN DISCONTINUED PER VERBAL ORDER. POOR APPETITE. BED LOW. CALL LIGHT IN REACH.
--- NOTE | 2023-06-06 15:17 | NUR ---
SHIFT SUMMARY MR PINZON IS FORGETFUL, CALM. TAKING GOOD PO FLUIDS IN BUT POOR APPETITE. HE DOESN'T LIKE GLUCERNA BUT WILL TAKE VANILLA ENSURE. DENIES ANY PAIN OR SOB TODAY. NEW POWERGLIDE PLACED, RECIEVING IVF AND IV ABX. PT'S SISTER VISITED TODAY WHICH MR PINZON WAS REALLY LOOKING FORWARD TO. TURNED AND REPOSITIONED. INCONTINENT OF STOOL AND URINE. BED LOW, CALL LIGHT IN REACH AND REMINDED HOW TO USE CALL LIGHT.
[2023-06-06 15:50] VITALS: BP 142/85
--- NOTE | 2023-06-06 18:04 | NUR ---
RN NOTE INCONTINENT OF LIQUID STOOL X [address] CROFT NOTIFIED AND CDIFF TESTING ORDERED. BUTTOCKS EXCORIATED AND FRIABLE. CLEANSED AND PROTECTIVE BARRIER CREAMS APPLIED.
[2023-06-06 20:00] VITALS: BP 143/84
[2023-06-06 22:01] LABS: Adenovirus F 40/41 Not Detected (NOT DETECT); Astrovirus Not Detected (NOT DETECT); Campylobacter Sp Not Detected (NOT DETECT); Cryptosporidium Not Detected (NOT DETECT); Cyclospora Cayetanensis Not Detected (NOT DETECT); E. Coli O157 Not Detected (NOT DETECT); Entamoeba Histolytica Not Detected (NOT DETECT); Enteroaggregative E. coli-EAEC Not Detected (NOT DETECT); Enteropathogenic E. coli-EPEC Not Detected (NOT DETECT); Enterotoxigenic E. coli-ETEC Not Detected (NOT DETECT); Giardia Lamblia Not Detected (NOT DETECT); Norovirus GI/GII Not Detected (NOT DETECT); Plesiomonas Shigelloides Not Detected (NOT DETECT); Rotavirus A Not Detected (NOT DETECT); Salmonella Sp Not Detected (NOT DETECT); Sapovirus Not Detected (NOT DETECT); Shiga Toxin-prod E. coli-STEC Not Detected (NOT DETECT); Shigella/Enteroin E. coli-EIEC Not Detected (NOT DETECT); Vibrio Cholerae Not Detected (NOT DETECT); Vibrio Sp Not Detected (NOT DETECT); Yersinia Enterocolitica Not Detected (NOT DETECT)
[2023-06-07 03:11] VITALS: BP 130/74
[2023-06-07 05:02] LABS: Albumin, Blood 1.9 g/dL (3.4-5.0); Anion Gap 5 mmol/L (6-16); Blood Urea Nitrogen 40 mg/dL (8-24); Bun/Creatinine Ratio 18.1 (12.0-20.0); CO2, Blood 29 mmol/L (21-32); Calcium, Blood 7.8 mg/dL (8.5-10.1); Chloride, Blood 111 mmol/L (98-108); Creatinine, Blood 2.21 mg/dL (0.60-1.20); Glomerular Filtration Rate 34 (60-); Glucose, Blood 129 mg/dL (70-99); Potassium, Blood 3.9 mmol/L (3.5-5.5); Sodium, Blood 145 mmol/L (136-145)
--- NOTE | 2023-06-07 05:17 | NUR ---
SHIFT SUMMARY NOC PT A/O X 3. PLEASANT AND COOPERATIVE WITH CARE. NO ACUTE CHANGES TO REPORT. PT HAS PG LEFTY PLACED YESTERDAY WITH CONTINOUS INFUSION OF NS @ 50 ML/HR, AND SO PT CAN FINISH IV ABX TREATMENT AT [facility].PT HAS HAD ONE INC LOOSE STOOL SO FAR, GI PANEL CAME BACK NEGATIVE. NEW MEPILEX PLACED OVER SACRAL SORES. PT HAD C/O OF BACK PAIN AND MEDICATED PER EMAR. PT CBG 149, SHORT ACTING CNI, AND SCHEDULED 20 UNITS LONG ACTING HELD, DUE TO PT POOR PO INTAKE. PT ON CONTACT ISOLATION FOR ESBL IN URINE. PT IS CURRENTLY RESTING WITH BED IN LOWEST POSITION, AND CALL LIGHT WITHIN REACH.
[2023-06-07 07:54] VITALS: BP 127/82
[2023-06-07] MEDS ORDERED: LISI5 PO (14:12)
[2023-06-07 15:21] VITALS: BP 141/86
[2023-06-07 16:21] LABS: SARS-Cov-2 (COVID-19) PCR, MMC NEGATIVE (NEGATIVE)
--- NOTE | 2023-06-07 16:50 | NUR ---
SHIFT/DISCHARGE SUMMARY Pt remains alert x2 this shift. Repositioned for comfort. VSS. Resp even nonlabored on RA. Condom cath in place. Yellow output noted. DC orders noted to return to superintendent [facility] care at [facility]. Report called to Aurelio. Awaiting transport [facility] for 1729.
== END 2023-06-07 17:13 | disposition home or self-care (01) | DRG 872 ==
LOC: ER 10:32 → MEDS 10:33 → ENPENDDIS 06-07 13:49 → MEDS 06-07 17:13
PROVIDERS: Internal Medicine; Internal Medicine Nephrology; Student in an Organized Health Care Education/Training Program; ADMIT Family Medicine
DX: A41.51 Sepsis due to Escherichia coli [E. coli] (principal); I13.0 Hypertensive heart and chronic kidney disease with heart failure and stage 1 through stage 4 chronic kidney disease, or unspecified chronic kidney disease; N30.00 Acute cystitis without hematuria; I50.32 Chronic diastolic (congestive) heart failure; N18.4 Chronic kidney disease, stage 4 (severe); N17.9 Acute kidney failure, unspecified; Z16.12 Extended spectrum beta lactamase (ESBL) resistance; E87.5 Hyperkalemia; I25.10 Atherosclerotic heart disease of native coronary artery without angina pectoris; E78.5 Hyperlipidemia, unspecified; F32.A Depression, unspecified; F41.9 Anxiety disorder, unspecified; K21.9 Gastro-esophageal reflux disease without esophagitis; D50.9 Iron deficiency anemia, unspecified; E66.01 Morbid (severe) obesity due to excess calories; I87.2 Venous insufficiency (chronic) (peripheral); E86.0 Dehydration; E87.6 Hypokalemia; E86.9 Volume depletion, unspecified; E11.22 Type 2 diabetes mellitus with diabetic chronic kidney disease; N40.1 Benign prostatic hyperplasia with lower urinary tract symptoms; R33.8 Other retention of urine; D63.1 Anemia in chronic kidney disease; E88.09 Other disorders of plasma-protein metabolism, not elsewhere classified; Z99.81 Dependence on supplemental oxygen; Z79.84 Long term (current) use of oral hypoglycemic drugs; Z79.4 Long term (current) use of insulin; Z79.82 Long term (current) use of aspirin; Z85.3 Personal history of malignant neoplasm of breast; Z90.13 Acquired absence of bilateral breasts and nipples; Z79.2 Long term (current) use of antibiotics; Z79.811 Long term (current) use of aromatase inhibitors; Z79.899 Other long term (current) drug therapy; Z90.49 Acquired absence of other specified parts of digestive tract; Z98.890 Other specified postprocedural states; Z89.422 Acquired absence of other left toe(s); Z68.28 Body mass index [BMI] 28.0-28.9, adult
CPT/HCPCS: 36415; 74177; 76770; 80048; 80053; 80069; 80076; 82570; 82947; 83605; 83735; 83880; 84100; 84132; 84300; 84484; 84540; 85014; 85018; 85025; 87040; 87507; 93005; 93010; 96365; 96372; 96375; 96376; 97110; 97162; 97530; 99285-25; A9270; C1751; G0378; J0360; J0881; J1644; J1815; J2185; J2405; J7030; Q9967; U0002

== ENCOUNTER 2023-10-12 00:58 | Emergency (ER) | payer MEDICARE, OTHER ==
[~2023-10-12] VITALS: Ht 175.3 cm; Wt 95.2 kg
[~2023-10-12 00:58] MED LIST changes: +ACET500 PO; +BISA10S PR; +DICY20 PO; +DULCOLAX400 MG/5 M PO; +GLARGINE SC; +HUMALOG SC; +MIRALAX17 GM PO; +ONDA4 PO; +POLYTRIM EYE RIGHTEYE; +Tetrahydrozolin15 ML BOTHEYES
[2023-10-12] MEDS ORDERED: Metoprolol Tartrate 25 MG Tab PO ONE (01:25)
[2023-10-12 01:46] VITALS: BP 202/174
== END 2023-10-12 02:04 | disposition home or self-care (01) ==
LOC: ER 00:58
DX: I10 Essential (primary) hypertension (principal); Z79.899 Other long term (current) drug therapy; Z79.82 Long term (current) use of aspirin; E11.9 Type 2 diabetes mellitus without complications; E78.5 Hyperlipidemia, unspecified; K21.9 Gastro-esophageal reflux disease without esophagitis
CPT/HCPCS: 93005; 93010; 99284-25; A9270

== ENCOUNTER 2023-12-05 06:14 | Day surgery (SDC) | payer MEDICARE, OTHER ==
[~2023-12-05] VITALS: Ht 175.3 cm; Wt 99.7 kg
[2023-12-05] MEDS ORDERED: VITAMIN D5000 UNIT (07:12)
[2023-12-05] MEDS ORDERED: JARDIANCE25 MG (07:13)
[2023-12-05] MEDS ORDERED: IBUP600 (07:16)
[2023-12-05] MEDS ORDERED: LOPE2C (07:17)
[2023-12-05] MEDS ORDERED: MIRALAX17 GM (07:18)
[2023-12-05] MEDS ORDERED: KETO60I (07:18)
[2023-12-05] MEDS ORDERED: NIFE30ER (07:19)
[2023-12-05] MEDS ORDERED: Lactated Ringer's 1,000 ML IV ONE ×2 (07:24→07:57)
[2023-12-05] MEDS ORDERED: propofoL 50 ML IV ONE (08:04)
[2023-12-05] MEDS ORDERED: Glycopyrrolate 0.2 MG/ML 1MLVIAL ONE (08:05)
[2023-12-05] MEDS ORDERED: Phenylephrine HCl 10mg/ml 1 ml Vial ONE (08:05)
[2023-12-05] MEDS ORDERED: ePHEDrine Sulfate 50 MG/ML 1ML Injection ONE (08:06)
[2023-12-05 09:28] VITALS: BP 141/90
== END 2023-12-05 09:50 | disposition home or self-care (01) ==
LOC: ORSCSDS 06:14
PROVIDERS: Internal Medicine Gastroenterology
PROC: 0DBM8ZX Excision of Descending Colon, Via Natural or Artificial Opening Endoscopic, Diagnostic (ICD-10-PCS; principal; 2023-12-05 08:45)
PROC: 0DB48ZX Excision of Esophagogastric Junction, Via Natural or Artificial Opening Endoscopic, Diagnostic (ICD-10-PCS; principal; 2023-12-05 08:45)
PROC: 0DBE8ZX Excision of Large Intestine, Via Natural or Artificial Opening Endoscopic, Diagnostic (ICD-10-PCS; principal; 2023-12-05 08:45)
DX: R19.7 Diarrhea, unspecified (principal); D12.4 Benign neoplasm of descending colon; E78.5 Hyperlipidemia, unspecified; Z86.010 Personal history of colon polyps; I25.10 Atherosclerotic heart disease of native coronary artery without angina pectoris; E11.22 Type 2 diabetes mellitus with diabetic chronic kidney disease; I12.9 Hypertensive chronic kidney disease with stage 1 through stage 4 chronic kidney disease, or unspecified chronic kidney disease; N18.9 Chronic kidney disease, unspecified; N40.0 Benign prostatic hyperplasia without lower urinary tract symptoms; E66.9 Obesity, unspecified; Z68.32 Body mass index [BMI] 32.0-32.9, adult; Z79.899 Other long term (current) drug therapy; Z79.84 Long term (current) use of oral hypoglycemic drugs; Z79.82 Long term (current) use of aspirin; R10.9 Unspecified abdominal pain; B96.89 Other specified bacterial agents as the cause of diseases classified elsewhere
CPT/HCPCS: 82947; 88305; J2371; J2704; J7120

== ENCOUNTER 2024-01-12 14:11 | Inpatient (IN) | payer MEDICARE, OTHER ==
[~2024-01-12] VITALS: Ht 175.3 cm; Wt 104.3 kg
[~2024-01-12 14:11] MED LIST changes: +IBUP600 PO; +JARDIANCE25 MG; +KETO.5OPSO RIGHTEYE; +LOPE2C; +MIRALAX17 GM; +VITAMIN D5000 UNIT PO
[2024-01-12 15:00] LABS: BASOPHILS ABSOLUTE AUTO 0.03 K/mm3 (0.00-0.23); BASOPHILS PERCENT AUTO 0 % (0-2); EOSINOPHILS ABSOLUTE AUTO 0.47 K/mm3 (0.00-0.68); EOSINOPHILS PERCENT AUTO 7 % (0-6); Hematocrit 33.9 % (37.0-53.0); IMMATURE GRAN ABSOLUTE AUTO 0.03 K/mm3 (0.00-0.10); IMMATURE GRAN PERCENT AUTO 0 % (0-1); LYMPHOCYTES ABSOLUTE AUTO 0.89 K/mm3 (0.84-5.20); LYMPHOCYTES PERCENT AUTO 12 % (21-46); MONOCYTES ABSOLUTE AUTO 0.38 K/mm3 (0.16-1.47); MONOCYTES PERCENT AUTO 5 % (4-13); Mean Corpuscular HGB 26.2 pg (26.0-34.0); Mean Corpuscular HGB Conc 29.5 g/dL (31.5-36.5); Mean Corpuscular Volume 89 fL (80-100); Mean Platelet Volume 10.6 fL (9.1-12.4); NEUTROPHILS ABSOLUTE AUTO 5.48 K/mm3 (1.96-9.15); NEUTROPHILS PERCENT AUTO 75 % (41-73); Platelet Count 114 K/mm3 (150-400); RDW Coefficient Variation 17.2 % (11.7-14.2); Red Blood Cell Count 3.81 M/mm3 (4.30-5.90); White Blood Cell Count 7.28 K/mm3 (4.00-11.30)
[2024-01-12 15:19] LABS: Salicylate <1.7 mg/dL (2.8-20.0)
[2024-01-12 15:22] LABS: Alanine Aminotransfer (ALT/SGP 17 U/L (12-78); Albumin/Globulin Ratio 0.7 (0.8-1.8); Alk Phos 116 U/L (50-136); Anion Gap 10 mmol/L (3-11); Aspartate Aminotrans (AST/SGOT 12 U/L (12-37); Bilirubin, Total 0.4 mg/dL (0.1-1.0); Blood Urea Nitrogen 24 mg/dL (8-24); Bun/Creatinine Ratio 12.1 (12.0-20.0); CO2, Blood 25 mmol/L (21-32); Calcium, Blood 8.5 mg/dL (8.5-10.1); Chloride, Blood 112 mmol/L (98-108); Creatinine, Blood 1.99 mg/dL (0.60-1.20); Ethanol (Alcohol), Blood, Med <3 mg/dL; Globulin, Blood 4.5 g/dL (2.2-4.0); Glomerular Filtration Rate 38 (60-); Glucose, Blood 154 mg/dL (70-99); Potassium, Blood 4.8 mmol/L (3.5-5.5); Sodium, Blood 142 mmol/L (136-145); Total Protein, Blood 7.5 g/dL (6.4-8.2)
[2024-01-12 15:23] LABS: Acetaminophen, Random <2.0 ug/mL (10.0-30.0)
[2024-01-12] MEDS ORDERED: Bisacodyl 5 MG TabEC PO PRN (16:50)
[2024-01-12] MEDS ORDERED: Melatonin 5 MG Tablet PO PRN (17:00)
[2024-01-12] MEDS ORDERED: Acetaminophen 325 MG TABLET PO PRN (17:00)
[2024-01-12] MEDS ORDERED: Magnesium Hydroxide Conc 10 ML UDC PO PRN (17:05)
[2024-01-12] MEDS ORDERED: Polyethylene Glycol 3350 17 gm PO PRN (17:05)
[2024-01-12] MEDS ORDERED: Ondansetron 4 MG TAB PO PRN (17:05)
[2024-01-12] MEDS ORDERED: POLYVINYL ALCOHOL 1.4% Ophthalmic Solution 15 ML BTL RIGHTEYE SCH (20:00)
[2024-01-12] MEDS ORDERED: Amitriptyline HCl 25 MG Tab PO SCH (21:00)
[2024-01-12] MEDS ORDERED: Insulin Glargine-Yfgn 100 Unit/mL 3 ML SYR SC SCH (21:00)
[2024-01-12] MEDS ORDERED: Metoprolol Tartrate 25 MG Tab PO SCH (21:00)
[2024-01-12] MEDS ORDERED: Insulin Regular 100 UNIT/ML 10ML Vial SC SCH (21:00)
[2024-01-12] MEDS ORDERED: Dicyclomine HCl 20 MG Tab PO SCH (21:00)
[2024-01-12 21:11] LABS: Source, Urine Straight Cath
[2024-01-12 21:15] LABS: Bilirubin, Urine Neg (Neg); Blood, Urine 5+ (Neg); Glucose Qualitative, Urine 4+ (Neg); Ketones, Urine Neg (Neg); Leukocyte Esterase, Urine Neg (Neg); Nitrite, Urine Neg (Neg); Protein, Urine 3+ (Neg); Specific Gravity, Urine 1.015 (1.003-1.022); Urobilinogen, Urine NORM (Normal)
[2024-01-12 21:23] LABS: Appearance, Urine Hazy (Clear); Color, Urine Pale Yellow (P-Yellow)
[2024-01-12 21:27] LABS: Bacteria Rare /hpf; Renal Epithelial Few /hpf (0-Rare); Squamous Epithelial Cells Not Seen /hpf (Few); White Blood Cells, Urine 0-2 /hpf (0-5); Yeast/Fungi Urine Rare /hpf
[2024-01-12 21:35] LABS: U Amphetamine Screen Not Detected; U Barbituate Screen Not Detected; U Benzodiazapine Screen Not Detected; U Buprenorphine Screen Not Detected; U Cannabinoids Screen Not Detected; U Cocaine Screen Not Detected; U Methadone Screen Not Detected; U Methamphetamine Screen Not Detected; U Opiates Screen Not Detected; U Oxycodone Screen Not Detected; U Phencyclidine Screen Not Detected
[2024-01-12 23:59] VITALS: BP 174/93
[2024-01-13] MEDS ORDERED: AKWA Tears15 ML RIGHTEYE (00:30)
[2024-01-13] MEDS ORDERED: Aspir 8181 MG PO (00:33)
--- NOTE | 2024-01-13 00:34 | NUR ---
ADMIT NOTE 58 YR OLD MALE ADMITTED TO FLOOR FROM THE ED WITH DX OF SUICIDAL IDEATIONS. ARRIVED WITH 1:1 SITTER. ED RN REPORTED PT HAD BEEN LIVING AT [facility] AND REPORTEDLY WAS VOICING SUICIDAL IDEATIONS AFTER SON WOULD NOT TALK TO HIM (LIVES IN ANOTHER STATE) AND IS IN LONG TERM. HX OF DEPRESSION. BEDBOUND PER ED RN. ROOM ASSESSED AND POSSIBLE OBJECTS OF SELF HARM REMOVED. BP ELEVATED OTHERWISE VSS. SHORT VERSION OF CALL LIGHT IN REACH. RAILS UP X 2 AND BED IN LOW POSITION FOR SAFETY. NURSE TO PASS ON PSYCH EVAL REQUEST FOR AM TO FOLLOW UP ON.
[2024-01-13] MEDS ORDERED: Benadryl Itch28.3 G1 TOP (00:35)
[2024-01-13] MEDS ORDERED: CHOLESTYRAMI239.4 G1 PO (00:38)
[2024-01-13] MEDS ORDERED: ERGO50000 PO (00:38)
[2024-01-13] MEDS ORDERED: Bentyl20 MG PO (00:40)
[2024-01-13] MEDS ORDERED: TAMS.4ER PO (00:41)
[2024-01-13] MEDS ORDERED: Florastor250 MG PO (00:41)
[2024-01-13] MEDS ORDERED: HUMALOG TE100 UNIT/1 SC ×2 (00:42→00:43)
[2024-01-13] MEDS ORDERED: IMODIUM A-D2 M1 PO (00:44)
[2024-01-13] MEDS ORDERED: BASAGLAR K100 UNIT/1 SC (00:45)
[2024-01-13] MEDS ORDERED: FURO40 PO (00:48)
[2024-01-13 04:23] VITALS: BP 163/86
[2024-01-13] MEDS ORDERED: HydrALAZINE HCl 10 MG Tab PO ONE (04:45)
[2024-01-13 05:32] LABS: BASOPHILS ABSOLUTE AUTO 0.03 K/mm3 (0.00-0.23); BASOPHILS PERCENT AUTO 0 % (0-2); EOSINOPHILS ABSOLUTE AUTO 0.41 K/mm3 (0.00-0.68); EOSINOPHILS PERCENT AUTO 6 % (0-6); Hematocrit 32.2 % (37.0-53.0); Hemoglobin 9.3 g/dL (13.5-17.5); IMMATURE GRAN ABSOLUTE AUTO 0.03 K/mm3 (0.00-0.10); IMMATURE GRAN PERCENT AUTO 0 % (0-1); LYMPHOCYTES ABSOLUTE AUTO 0.92 K/mm3 (0.84-5.20); LYMPHOCYTES PERCENT AUTO 14 % (21-46); MONOCYTES ABSOLUTE AUTO 0.35 K/mm3 (0.16-1.47); MONOCYTES PERCENT AUTO 5 % (4-13); Mean Corpuscular HGB 25.9 pg (26.0-34.0); Mean Corpuscular HGB Conc 28.9 g/dL (31.5-36.5); Mean Corpuscular Volume 90 fL (80-100); Mean Platelet Volume 10.1 fL (9.1-12.4); NEUTROPHILS ABSOLUTE AUTO 5.05 K/mm3 (1.96-9.15); NEUTROPHILS PERCENT AUTO 75 % (41-73); Platelet Count 102 K/mm3 (150-400); RDW Coefficient Variation 17.3 % (11.7-14.2); RDW Standard Deviation 56.3 fL (35.1-46.3); Red Blood Cell Count 3.59 M/mm3 (4.30-5.90); White Blood Cell Count 6.79 K/mm3 (4.00-11.30)
--- NOTE | 2024-01-13 05:44 | NUR ---
SHIFT SUMMARY PATIENT ADMITTED WITH SUICIDAL IDEATION. Q4 SUICIDE METIGATION ASSESSMENT. VITALS CHECKED AT 0423 163/86 91 PULSE OX, 80 PULSE. ONE TIME ORDER OF HYDRALAZINE 10MG PO ORDERED. SEE VITALS FOR RECHECK. PATIENT ASKED TO HAVE HIS SHIRT TAKEN OFF HE FELT VERY ITCHY IN IT. PATIENT WAS COOPERATIVE WITH STAFF AND PRESENTED A WITHDRAWN AFFECT. STATED HE DIDNT LIKE METROPOLOL BECAUSE IT MADE HIM SPACEY AND CLOUDY IN THE HEAD. HAS NOT VOIDED URINE AT THIS TIME.
[2024-01-13 07:19] VITALS: BP 155/82
[2024-01-13] MEDS ORDERED: Cholestyramine/Aspartame 4 GM Packet PO SCH (09:00)
[2024-01-13] MEDS ORDERED: Enoxaparin 40 MG/0.4 ML SYR SC SCH (09:00)
[2024-01-13] MEDS ORDERED: Tamsulosin HCl 0.4 MG Cap PO SCH (09:00)
[2024-01-13] MEDS ORDERED: NIFEdipine 30 MG TabCR PO SCH (09:00)
[2024-01-13] MEDS ORDERED: Aspirin 81 MG Chew PO SCH (09:00)
[2024-01-13] MEDS ORDERED: Atorvastatin 40 MG Tab PO SCH (09:00)
[2024-01-13] MEDS ORDERED: Empagliflozin 10 MG TAB PO SCH (09:00)
[2024-01-13] MEDS ORDERED: Cholecalciferol 1000 Unit Tablet (=25MCG) PO SCH (09:00)
--- NOTE | 2024-01-13 09:26 | NUR ---
PATIENT VERY AGITATED THIS AM. CHALLENGES NURSES ASSESSMENT QUESTIONS. STATES "I AM NOT GOING TO HURT MYSELF, I KEEP TELLING YOU THAT"
[2024-01-13 15:56] VITALS: BP 159/89
[2024-01-13 19:38] VITALS: BP 181/90
[2024-01-13] MEDS ORDERED: QUEtiapine Fumarate 100 MG Tab PO SCH (21:00)
[2024-01-14 06:05] LABS: BASOPHILS ABSOLUTE AUTO 0.03 K/mm3 (0.00-0.23); BASOPHILS PERCENT AUTO 1 % (0-2); EOSINOPHILS ABSOLUTE AUTO 0.35 K/mm3 (0.00-0.68); EOSINOPHILS PERCENT AUTO 6 % (0-6); Hemoglobin 9.8 g/dL (13.5-17.5); IMMATURE GRAN ABSOLUTE AUTO 0.02 K/mm3 (0.00-0.10); IMMATURE GRAN PERCENT AUTO 0 % (0-1); LYMPHOCYTES ABSOLUTE AUTO 0.98 K/mm3 (0.84-5.20); LYMPHOCYTES PERCENT AUTO 18 % (21-46); MONOCYTES ABSOLUTE AUTO 0.27 K/mm3 (0.16-1.47); MONOCYTES PERCENT AUTO 5 % (4-13); Mean Corpuscular HGB 26.2 pg (26.0-34.0); Mean Corpuscular HGB Conc 29.7 g/dL (31.5-36.5); Mean Corpuscular Volume 88 fL (80-100); Mean Platelet Volume 10.1 fL (9.1-12.4); NEUTROPHILS ABSOLUTE AUTO 3.78 K/mm3 (1.96-9.15); NEUTROPHILS PERCENT AUTO 70 % (41-73); Platelet Count 101 K/mm3 (150-400); RDW Coefficient Variation 17.1 % (11.7-14.2); RDW Standard Deviation 53.4 fL (35.1-46.3); Red Blood Cell Count 3.74 M/mm3 (4.30-5.90); White Blood Cell Count 5.43 K/mm3 (4.00-11.30)
[2024-01-14 06:25] LABS: Albumin, Blood 2.9 g/dL (3.4-5.0); Albumin/Globulin Ratio 0.7 (0.8-1.8); Bilirubin, Total 0.4 mg/dL (0.1-1.0); Bun/Creatinine Ratio 13.2 (12.0-20.0); Calcium, Blood 8.6 mg/dL (8.5-10.1); Creatinine, Blood 2.05 mg/dL (0.60-1.20); Globulin, Blood 4.2 g/dL (2.2-4.0); Potassium, Blood 4.7 mmol/L (3.5-5.5); Total Protein, Blood 7.1 g/dL (6.4-8.2)
--- NOTE | 2024-01-14 06:55 | NUR ---
SHIFT SUMMARY PATIENT HAD VISIT WITH DAUGHTER.DAUGHTER CONCERNED ABOUT ELEVATED BP AND HER MOM SEEMS MORE DISORIENTATED AND CLOUDY MENTALLY. VITALS OBTAINED AT 1923 (212/65) ADMINISTERED HYDRALZINE 10MG PO PER DR ORDER. BP RECHECKED AT 2134 (193/67). SET UP OXYGEN HOSE IN ROOM. SCD'S OBTAINED PER DR ORDER AND APPLIED. PATIENT TOLLERATED. PATIESNT STATES BM'S LOOSE DECLINED IMODIUM AT THIS TIME. ADVISED PATIENT WE WOULD RECHECK BP AT 0300. BP OBTAINED AT 0300 (153/70) BED AT LOW POSITION, RAILS X2, CALL LIGHT WITHIN REACH.
[2024-01-14 07:24] VITALS: BP 141/84
[2024-01-14] MEDS ORDERED: Furosemide 40 MG Tab PO SCH (09:00)
[2024-01-14] MEDS ORDERED: FLUoxetine HCL 20 MG CAP PO SCH (09:00)
[2024-01-14 15:56] VITALS: BP 174/96
--- NOTE | 2024-01-14 16:18 | NUR ---
SUMMARY- PT A/O X4, BEDREST AT BASELINE. DENIES ACTIVE SUICIDAL THOUGHTS. PLEASAND AND COOPERATIVE. TURNED ROUTINELY Q2 PT ALLOWS, OCCASIONAL DECLINED TO BE TURNE ONLY WANTED TO BE FLOATED. PT INCONT URINE, REFUSES CONDOM CATH. INCONT BOWEL MUD CONSISTANCY SMEARS. REDNESS TO GLUT 6X6 REGION OF EXCORIATION, LEFT MEPILEX OFF UNTIL FULL BOWEL MOVEMENT. PT STATES HE KNOWS WHEN HE IS WET BUT NEVER TOLD STAFF HE WAS WET, THAN BECAME IRATE THAT NO ONE CHANGED HIM. PT REASSURED STAFF WOULD BE MORE VIGGALANT ABOUT KEEPING HIM DRY AND ASKED THAT HE PLEASE LET US KNOW. SISTER CALLED TWICE, UPDATE NAVEN OVER PHONE. ALSO GAVE PT HIS CELL PHONE SO HE COULD CALL HER. PLAN TO DC PT BACK TO FACILITY IF PT SEEMS READY ACCORDING TO PSYCH. PT STARTED ON ANTIDEPRESSANT. WILL REPORT TO BRIT YEBOAH
[2024-01-14 19:33] VITALS: BP 177/93
--- NOTE | 2024-01-14 21:39 | NUR ---
HOSPITALIST CONTACTED. DR. FONTANEZ CONTACTED AND NOTIFIED OF PATIENTS MULTIPLE LOOSE BMS-PATIENT GIVEN MILK OF MAG ON DAYSHIFT- ORDERED FOR IMMODIUM-SEE ORDERS. ALSO NOTIFIED OF PATIENTS REDNESS TO SCROTUM-PATIENT REPORTS IRRITANTS TO BABY POWDER-DR. FONTANEZ ORDERED FOR MEDICATED POWDER-SEE ORDER.
[2024-01-14] MEDS ORDERED: Loperamide HCl 2 MG Cap PO PRN (21:40)
[2024-01-14] MEDS ORDERED: Miconazole Nitrate 2% 85 GM PWD TOP PRN (21:45)
--- NOTE | 2024-01-15 00:56 | NUR ---
PATIENT REPORTED TO SITTER THAT HE WAS WET. THIS RN WENT INTO PATIENTS ROOM TO CHECK HIS ATTENDS AND CHANGE NEEDED. PATIENTS ATTENDS DRY IN THE CASSIE AREA WITH NO BM NOTED. LET PATIENT KNOW THAT WE WOULD NEED TO CHECK TO MAKE SURE HE DID NOT HAVE ANOTHER BOWEL MOVEMENT PATIENT HAS HAD MULTIPLE LOOSE BM'S THIS SHIFT. PATIENT TOLD THIS RN THAT HE WAS TIRED OF ROLLING OVER AND THAT HE WAS NOT GOING TO ROLL OVER. PATIENT REFUSED TO HAVE BRIEF FULLY CHECKED. PATIENT EDUCATED ON POSSIBLE OUTCOMES FROM SITTING IN BM. PATIENT NON-RECEPTIVE.
[2024-01-15 02:50] VITALS: BP 146/81
--- NOTE | 2024-01-15 04:21 | NUR ---
SHIFT SUMMARY. PATIENT IS A&OX4, AFFECT IS LABILE/WITHDRAWN. PATIENT HAVING LOOSE BM'S THIS SHIFT-SEE OTHER NOTES. PATIENT IS ABLE TO NOTIFY WHEN HE HAS HAD INCONTINENCE EPISODES. PATIENT REFUSED TO ALLOW THIS RN TO CHECK HIS ATTENDS. PATIENT HAS 1:1 SITTER FOR SI. PATIENT RESIDES AT [facility]. PATIENT REQUIRING 2 PERSON ASSIST IN ATTENDS CHANGES. PATIENT UP BEGINNING OF SHIFT. PATIENT RESTING WITH RESPIRATIONS EQUAL AND UNLBAORED ON RA. BED IS LOCKED IN THE LOWEST POSITION WITH CALL LIGHT IN REACH. CARE IS ONGOIN. PATIENT HAS INCREASED IRRITABILITY.
[2024-01-15 07:10] VITALS: BP 154/84
[2024-01-15 14:31] LABS: SARS-Cov-2 (COVID-19) PCR, MMC NEGATIVE (NEGATIVE)
[2024-01-15] MEDS ORDERED: Prozac20 MG PO (14:42)
[2024-01-15] MEDS ORDERED: QUET100 PO (14:43)
--- NOTE | 2024-01-15 16:41 | NUR ---
PT DISCHARGED 161 BACK TO [facility]- CALLED REPORT TO OBINNA ESTRELLA. SENT WITH BELONGINGS. SENT WITH MED REC FOR TRANSPORTER TO GIVE TO OBINNA. PT LIFTED FROM BED VIA NERI LIFT TO WHEELCHAIR. DIFFICULTY GETTING LEG AROUNG LIFT BASE, STRETCHED FOOT DOWN AND PT COMPLAINED OF TOO MUCH OF A STRETCH IN KNEE AREA. DID NOT HEAR OF SEE ANY INJURY. PT WAS FINE ONCE SETTLED INTO WHEELCHAIR AND STATED HE FELT FINE.
== END 2024-01-15 16:24 | DRG 880 ==
LOC: ER 14:11 → ERHOLD 17:00 → MEDS 17:00
PROVIDERS: Internal Medicine; Student in an Organized Health Care Education/Training Program; ADMIT Internal Medicine
DX: R45.851 Suicidal ideations (principal); I13.0 Hypertensive heart and chronic kidney disease with heart failure and stage 1 through stage 4 chronic kidney disease, or unspecified chronic kidney disease; I50.42 Chronic combined systolic (congestive) and diastolic (congestive) heart failure; N18.4 Chronic kidney disease, stage 4 (severe); I25.10 Atherosclerotic heart disease of native coronary artery without angina pectoris; E78.5 Hyperlipidemia, unspecified; E66.9 Obesity, unspecified; D63.1 Anemia in chronic kidney disease; D50.9 Iron deficiency anemia, unspecified; E11.22 Type 2 diabetes mellitus with diabetic chronic kidney disease; E11.42 Type 2 diabetes mellitus with diabetic polyneuropathy; E11.319 Type 2 diabetes mellitus with unspecified diabetic retinopathy without macular edema; Z85.3 Personal history of malignant neoplasm of breast; N40.0 Benign prostatic hyperplasia without lower urinary tract symptoms; Z89.432 Acquired absence of left foot; Z90.49 Acquired absence of other specified parts of digestive tract; Z90.10 Acquired absence of unspecified breast and nipple; Z89.429 Acquired absence of other toe(s), unspecified side; Z88.8 Allergy status to other drugs, medicaments and biological substances; Z79.899 Other long term (current) drug therapy; Z79.82 Long term (current) use of aspirin; F41.9 Anxiety disorder, unspecified; K21.9 Gastro-esophageal reflux disease without esophagitis; E11.649 Type 2 diabetes mellitus with hypoglycemia without coma; Z68.34 Body mass index [BMI] 34.0-34.9, adult
CPT/HCPCS: 36415; 36416; 51701; 80053; 81001; 82947; 83036; 85025; 87086; 93005; 93010; 99285-25; A9270; G0480; J1650; J1815; U0002

== ENCOUNTER 2024-02-02 13:47 | Emergency (ER) | payer MEDICARE, OTHER ==
[~2024-02-02] VITALS: Ht 175.3 cm; Wt 104.3 kg
[~2024-02-02 13:47] MED LIST changes: +ADULT GLYCERIN1 EACH PR; +AKWA Tears15 ML RIGHTEYE; +AMLO5 PO; +BASAGLAR K100 UNIT/1 SC; +Benadryl Itch28.3 G1 TOP; +CHOLESTYRAMI239.4 G1 PO; +ERGO50000 PO; +HUMALOG TE100 UNIT/1 SC; +IMODIUM A-D2 M1 PO; +Prozac20 MG PO; +QUET100 PO
[2024-02-02 14:15] LABS: BASOPHILS ABSOLUTE AUTO 0.03 K/mm3 (0.00-0.23); BASOPHILS PERCENT AUTO 1 % (0-2); EOSINOPHILS ABSOLUTE AUTO 0.37 K/mm3 (0.00-0.68); EOSINOPHILS PERCENT AUTO 6 % (0-6); Hematocrit 37.2 % (37.0-53.0); Hemoglobin 11.2 g/dL (13.5-17.5); IMMATURE GRAN ABSOLUTE AUTO 0.03 K/mm3 (0.00-0.10); IMMATURE GRAN PERCENT AUTO 1 % (0-1); LYMPHOCYTES ABSOLUTE AUTO 0.87 K/mm3 (0.84-5.20); LYMPHOCYTES PERCENT AUTO 14 % (21-46); MONOCYTES ABSOLUTE AUTO 0.25 K/mm3 (0.16-1.47); MONOCYTES PERCENT AUTO 4 % (4-13); Mean Corpuscular HGB 26.2 pg (26.0-34.0); Mean Corpuscular HGB Conc 30.1 g/dL (31.5-36.5); Mean Corpuscular Volume 87 fL (80-100); Mean Platelet Volume 9.9 fL (9.1-12.4); NEUTROPHILS PERCENT AUTO 75 % (41-73); Platelet Count 123 K/mm3 (150-400); RDW Standard Deviation 50.3 fL (35.1-46.3); Red Blood Cell Count 4.28 M/mm3 (4.30-5.90); White Blood Cell Count 6.15 K/mm3 (4.00-11.30)
[2024-02-02] MEDS ORDERED: Metoprolol Tartrate 1 MG/ML 5 ML VIAL IV ONE (14:20)
[2024-02-02 14:29] LABS: Albumin, Blood 2.8 g/dL (3.4-5.0); Albumin/Globulin Ratio 0.6 (0.8-1.8); Bilirubin, Total 0.4 mg/dL (0.1-1.0); Bun/Creatinine Ratio 13.6 (12.0-20.0); Calcium, Blood 8.1 mg/dL (8.5-10.1); Creatinine, Blood 1.84 mg/dL (0.60-1.20); Globulin, Blood 4.4 g/dL (2.2-4.0); Potassium, Blood 4.5 mmol/L (3.5-5.5); Total Protein, Blood 7.2 g/dL (6.4-8.2)
[2024-02-02] MEDS ORDERED: LOSARTAN POTASS25 M2 PO (14:57)
[2024-02-02] MEDS ORDERED: INSULIN LI100 UNIT/5 SC (14:58)
[2024-02-02] MEDS ORDERED: CLON.2 PO (14:58)
[2024-02-02] MEDS ORDERED: CLONIDINE1 EA17 TD (14:58)
[2024-02-02] MEDS ORDERED: HydrALAZINE HCl 20 MG / ML 1ML Vial IV ONE (15:30)
[2024-02-02] MEDS ORDERED: LOSA50 PO (15:36)
[2024-02-02 19:30] VITALS: BP 170/85
== END 2024-02-02 20:00 | disposition home or self-care (01) ==
LOC: ER 13:47
PROVIDERS: Student in an Organized Health Care Education/Training Program
DX: I13.0 Hypertensive heart and chronic kidney disease with heart failure and stage 1 through stage 4 chronic kidney disease, or unspecified chronic kidney disease (principal); E11.22 Type 2 diabetes mellitus with diabetic chronic kidney disease; N18.32 Chronic kidney disease, stage 3b; I50.9 Heart failure, unspecified; E78.5 Hyperlipidemia, unspecified; E11.40 Type 2 diabetes mellitus with diabetic neuropathy, unspecified; E11.319 Type 2 diabetes mellitus with unspecified diabetic retinopathy without macular edema; K21.9 Gastro-esophageal reflux disease without esophagitis; Z88.6 Allergy status to analgesic agent; Z79.82 Long term (current) use of aspirin; Z79.4 Long term (current) use of insulin; Z79.899 Other long term (current) drug therapy
CPT/HCPCS: 80053; 83880; 85025; 96374; 96375; 99284-25; J0360

== ENCOUNTER 2024-05-10 05:18 | Inpatient (IN) | payer MEDICARE, OTHER ==
[~2024-05-10] VITALS: Ht 182.9 cm; Wt 99.5 kg
[~2024-05-10 05:18] MED LIST changes: -AKWA Tears15 ML RIGHTEYE; -BASAGLAR K100 UNIT/1 SC; +CLON.2 PO; +CLONIDINE1 EA17 TD; -HUMALOG TE100 UNIT/1 SC; +INSULIN LI100 UNIT/5 SC; +LOSA50 PO; +LOSARTAN POTASS25 M2 PO; +REDNESS RELIEVE15 M1 BOTHEYES; -VITAMIN D5000 UNIT PO
[2024-05-10] MEDS ORDERED: Acetaminophen 650 MG Supp PR ONE (05:40)
[2024-05-10] MEDS ORDERED: NS 1,000 ML IV SCH (05:40)
[2024-05-10] MEDS ORDERED: CefTRIAXone Sodium 2,000 MG in NS 100 ML IV ONE (05:45)
[2024-05-10 05:48] LABS: BASOPHILS ABSOLUTE AUTO 0.04 K/mm3 (0.00-0.23); BASOPHILS PERCENT AUTO 0 % (0-2); EOSINOPHILS ABSOLUTE AUTO 1.06 K/mm3 (0.00-0.68); EOSINOPHILS PERCENT AUTO 10 % (0-6); Hematocrit 33.8 % (37.0-53.0); Hemoglobin 10.3 g/dL (13.5-17.5); IMMATURE GRAN ABSOLUTE AUTO 0.04 K/mm3 (0.00-0.10); IMMATURE GRAN PERCENT AUTO 0 % (0-1); LYMPHOCYTES ABSOLUTE AUTO 0.76 K/mm3 (0.84-5.20); LYMPHOCYTES PERCENT AUTO 8 % (21-46); MONOCYTES ABSOLUTE AUTO 0.54 K/mm3 (0.16-1.47); MONOCYTES PERCENT AUTO 5 % (4-13); Mean Corpuscular HGB 28.1 pg (26.0-34.0); Mean Corpuscular HGB Conc 30.5 g/dL (31.5-36.5); Mean Corpuscular Volume 92 fL (80-100); Mean Platelet Volume 9.6 fL (9.1-12.4); NEUTROPHILS ABSOLUTE AUTO 7.72 K/mm3 (1.96-9.15); NEUTROPHILS PERCENT AUTO 76 % (41-73); Platelet Count 191 K/mm3 (150-400); RDW Coefficient Variation 15.7 % (11.7-14.2); RDW Standard Deviation 52.5 fL (35.1-46.3); Red Blood Cell Count 3.66 M/mm3 (4.30-5.90); White Blood Cell Count 10.16 K/mm3 (4.00-11.30)
[2024-05-10 06:14] LABS: Albumin/Globulin Ratio 0.4 (0.8-1.8); Bilirubin, Total 0.4 mg/dL (0.1-1.0); Bun/Creatinine Ratio 11.1 (12.0-20.0); Calcium, Blood 8.4 mg/dL (8.5-10.1); Creatinine, Blood 2.44 mg/dL (0.60-1.20); Globulin, Blood 5.3 g/dL (2.2-4.0); Potassium, Blood 5.2 mmol/L (3.5-5.5); Total Protein, Blood 7.3 g/dL (6.4-8.2)
[2024-05-10 06:25] LABS: Source, Urine Straight Cath
[2024-05-10 06:27] LABS: Influenza A, PCR NEGATIVE (NEGATIVE); Influenza B, PCR NEGATIVE (NEGATIVE); Resp Syncytial Virus, PCR NEGATIVE (NEGATIVE); SARS-Cov-2 (COVID-19) PCR, MMC NEGATIVE (NEGATIVE)
[2024-05-10 06:33] LABS: Appearance, Urine Clear (Clear); Bilirubin, Urine Neg (Neg); Blood, Urine Neg (Neg); Color, Urine Yellow (P-Yellow); Glucose Qualitative, Urine 4+ (Neg); Ketones, Urine Neg (Neg); Leukocyte Esterase, Urine Neg (Neg); Nitrite, Urine Neg (Neg); Protein, Urine 3+ (Neg); Urobilinogen, Urine NORM (Normal)
[2024-05-10 06:39] LABS: Red Blood Cells, Urine 0-2 /hpf (0-2); White Blood Cells, Urine 0-2 /hpf (0-5)
[2024-05-10 06:40] LABS: Bacteria Rare /hpf; Renal Epithelial Rare /hpf (0-Rare); Squamous Epithelial Cells Not Seen /hpf (Few)
[2024-05-10] MEDS ORDERED: Azithromycin 500 MG in NS 250 ML IV ONE (07:05)
[2024-05-10] MEDS ORDERED: Acetaminophen 500 MG Tab PO ONE (07:45)
[2024-05-10] MEDS ORDERED: FLU VACC TS2024-25(6MOS UP)/PF 45 MCG/0.5 ML SYRINGE IM SCH (08:20)
[2024-05-10] MEDS ORDERED: Dicyclomine HCl 20 MG Tab PO PRN (09:10)
[2024-05-10] MEDS ORDERED: Atorvastatin 40 MG Tab PO SCH (09:30)
[2024-05-10] MEDS ORDERED: Tamsulosin HCl 0.4 MG Cap PO SCH (09:30)
[2024-05-10] MEDS ORDERED: Cholestyramine/Aspartame 4 GM Packet PO SCH (09:30)
[2024-05-10] MEDS ORDERED: Metoprolol Tartrate 25 MG Tab PO SCH (09:30)
[2024-05-10] MEDS ORDERED: NIFEdipine 30 MG TabCR PO SCH (09:30)
[2024-05-10] MEDS ORDERED: Empagliflozin 10 MG TAB PO SCH (09:30)
[2024-05-10] MEDS ORDERED: FLUoxetine HCL 20 MG CAP PO SCH (09:30)
[2024-05-10] MEDS ORDERED: Aspirin 81 MG TabEC PO SCH (09:30)
[2024-05-10] MEDS ORDERED: Insulin Human Lispro 100 Units/ML 3ML Syringe SC SCH (11:30)
[2024-05-10 11:37] VITALS: BP 133/76
[2024-05-10 11:41] LABS: Base Excess Venous 0.5 mmol/L; PCO2 Venous 48 mmHg (38-42); pH Blood Venous 7.35 (7.34-7.37)
[2024-05-10] MEDS ORDERED: DOXEPIN HCL3 MG PO (12:40)
--- NOTE | 2024-05-10 12:40 | NUR ---
ADMIT NOTE PT ARRIVED TO PCU FROM ED VIA ED STRETCHER AT APPROX 1130. PT WAS SLID BY STAFF TO PCU BED. PT ALERT, ORIENTED TO SELF, ABLE TO ANSWER SOME QUESTIONS. SP02 ON BIPAP, ORIGINALLY 12/6 40% FI02. ONCE PT FELL ASLEEP, PT TIDAL VOLUMES DECREASED, PT DESAT TO 80'S WITH 3 MINUTE RECOVERY. RT IN ROOM. SWITCHED TO AVAPS SETTINGS. PT CONTINUED TO DESAT OCCASIONALLY. MD CODY CALLED. MD CODY W/ ORDERS FOR PULMONARY CONSULT. CONSULT CALLED TO MD CARPENTER. TELEMETRY SHOWS NSR, HR 60'S. BED BATH GIVEN. NEW MEPLEXES APPLIED TO COCCYX AND HEELS, PICTURES TAKEN. CALL PLAC[facility] TO [facility] FOR MED REC. PT ORIENTED TO ROOM, CALL LIGHT. CALL LIGHT IN REACH.
[2024-05-10] MEDS ORDERED: IMODIUM A-D2 M1 PO (12:41)
[2024-05-10] MEDS ORDERED: FURO40 PO (12:42)
[2024-05-10] MEDS ORDERED: Ipratropium/Albuterol SulF 2.5-0.5MG/3 ML Amp INH SCH (14:05)
[2024-05-10 15:11] VITALS: BP 144/74
--- NOTE | 2024-05-10 16:56 | NUR ---
SHIFT SUMMARY NO CHANGES SINCE CARE ASSUMPTION. PT ABLE TO MAKE NEEDS KNOWN. SP02>90% ON BIPAP, AVAPS SETTINGS. TELEMETRY SHOWS NSR, HR 60'S. PT INCONTINENT, BRIEF CHANGED/ C/D/I. REPOSITIONED Q2H. PCR SENT TO LAB. SISTER CALLED TO NOTIFY SHE WILL BE VISITING SOON. PT RESTING IN ROOM, CALL LIGHT IN REACH.
[2024-05-10 17:04] LABS: Adenovirus Not Detected (NOT DETECT); Coronavirus 229E Not Detected (NOT DETECT); Coronavirus HKU1 Not Detected (NOT DETECT); Coronavirus NL63 Not Detected (NOT DETECT); Coronavirus OC43 Not Detected (NOT DETECT)
[2024-05-10 17:05] LABS: Bordetella pertussis Not Detected (NOT DETECT); Chlamydophila pneumoniae Not Detected (NOT DETECT); Human Metapneumovirus Not Detected (NOT DETECT); Human Rhinovirus/Enterovirus Not Detected (NOT DETECT); Influenza A/2009-H1 Not Detected (NOT DETECT); Influenza A/H1 Not Detected (NOT DETECT); Influenza A/H3 Not Detected (NOT DETECT); Influenza B Not Detected (NOT DETECT); Mycoplasma pneumoniae Not Detected (NOT DETECT); Parainfluenza Virus 1 Not Detected (NOT DETECT); Parainfluenza Virus 2 Not Detected (NOT DETECT); Parainfluenza Virus 3 Not Detected (NOT DETECT); Parainfluenza Virus 4 Not Detected (NOT DETECT); Respiratory Syncytial Virus Not Detected (NOT DETECT); SARS-Cov-2 (COVID-19), BioFire Not Detected (NOT DETECT)
[2024-05-10] MEDS ORDERED: Lactobacil 2-S.Thermo-Bifido 1 1 Cap PO SCH (21:00)
[2024-05-10] MEDS ORDERED: QUEtiapine Fumarate 100 MG Tab PO SCH (21:00)
[2024-05-10] MEDS ORDERED: Insulin Glargine-Yfgn 100 Unit/mL 3 ML SYR SC SCH (21:00)
[2024-05-10 21:51] VITALS: BP 140/81
[2024-05-11] VITALS (7 sets, daily range): BP systolic 134–148; BP diastolic 62–93
[2024-05-11 05:00] LABS: BASOPHILS ABSOLUTE AUTO 0.05 K/mm3 (0.00-0.23); BASOPHILS PERCENT AUTO 1 % (0-2); EOSINOPHILS ABSOLUTE AUTO 0.24 K/mm3 (0.00-0.68); EOSINOPHILS PERCENT AUTO 2 % (0-6); Hematocrit 32.4 % (37.0-53.0); Hemoglobin 9.5 g/dL (13.5-17.5); IMMATURE GRAN ABSOLUTE AUTO 0.05 K/mm3 (0.00-0.10); IMMATURE GRAN PERCENT AUTO 1 % (0-1); LYMPHOCYTES ABSOLUTE AUTO 0.69 K/mm3 (0.84-5.20); LYMPHOCYTES PERCENT AUTO 6 % (21-46); MONOCYTES ABSOLUTE AUTO 0.45 K/mm3 (0.16-1.47); MONOCYTES PERCENT AUTO 4 % (4-13); Mean Corpuscular HGB 27.4 pg (26.0-34.0); Mean Corpuscular HGB Conc 29.3 g/dL (31.5-36.5); Mean Corpuscular Volume 93 fL (80-100); Mean Platelet Volume 9.4 fL (9.1-12.4); NEUTROPHILS ABSOLUTE AUTO 9.58 K/mm3 (1.96-9.15); NEUTROPHILS PERCENT AUTO 87 % (41-73); Platelet Count 166 K/mm3 (150-400); RDW Coefficient Variation 15.5 % (11.7-14.2); RDW Standard Deviation 53.4 fL (35.1-46.3); Red Blood Cell Count 3.47 M/mm3 (4.30-5.90); White Blood Cell Count 11.06 K/mm3 (4.00-11.30)
[2024-05-11 05:14] LABS: Bun/Creatinine Ratio 12.5 (12.0-20.0); Calcium, Blood 8.8 mg/dL (8.5-10.1); Creatinine, Blood 2.4 mg/dL (0.60-1.20); Potassium, Blood 5.3 mmol/L (3.5-5.5)
--- NOTE | 2024-05-11 06:23 | NUR ---
SHIFT SUMMARY NEURO: A/OX3. CONFUSED AT BASELINE. LUNGS: COARSE UPPER LOBES. DIMINISHED BASES. SPEECH EVAL INITIATED AFTER FAILED DYSPHAGIA SCREENING WITH RN. ON AVAPS 30%. CARDIAC: NSR, NORMOTENSIVE. BLE EDEMA. PULSES FAINT BLE GI/: MALE EXTERNAL CATHETER PLACED. UNABLE TO SAFELY SWALLOW. NO ORAL INTAKE THIS SHIFT. SKIN: MEPILEX REMAINS ON HEELS AND SACRUM.
[2024-05-11] MEDS ORDERED: Azithromycin 500 MG in NS 250 ML IV SCH (09:00)
[2024-05-11] MEDS ORDERED: CefTRIAXone Sodium 1,000 MG in NS 100 ML IV SCH (09:00)
[2024-05-11] MEDS ORDERED: Heparin Sodium 5000 Units/ML 1ML MDV SC SCH (09:00)
--- NOTE | 2024-05-11 12:29 | NUR ---
BEDSIDE SWALLOW: PT ABLE TO COME OFF BIPAP AT START OF SHIFT AND TRANSITION TO 2L O2 VIA NC W/ SPO2 >90%. THIS RN COMPLETED BEDSIDE SWALLOW WITH PT AT APPROX 0900. PT SAT UP IN BED TO 90 DEGREES. SPOON USED TO TRIAL PUDDING & THICKENED WATER; NO COUGHING, VOCAL CHANGES, O2 DESATURATIONS, OR OTHER SIGNS OF ASPIRATION. PT THEN TRIALED ON WATER W/ SPOON; TOLERATED SAME ABOVE W/O SIGNS OF ASPIRATION. MEDICATIONS ADMINISTERED WHOLE IN APPLESAUCE, TOLERATED WELL. FREELANCE INTERPRETER/TRANSLATOR ALSO ASSISTED PT W/ DRINKING ENSURE W/O STRAW, PT CONTINUED TO TOLERATE WELL. PT DECLINING FOOD T/O AM, STATING HE IS NOT HUNGRY. NO OTHER NEEDS AT THIS TIME.
[2024-05-11] MEDS ORDERED: NS 1,000 ML IV SCH (13:30)
[2024-05-11] MEDS ORDERED: LOSA50 PO (14:53)
[2024-05-11] MEDS ORDERED: GABA100 PO (14:53)
[2024-05-11] MEDS ORDERED: HYDRA25 PO (14:54)
[2024-05-11] MEDS ORDERED: GENTEAL TEARS S10 GM BOTHEYES (15:00)
--- NOTE | 2024-05-11 15:22 | NUR ---
RECEIVED REPORT FROM AVERY YEBOAH. PT TO GO TO ROOM 349.
--- NOTE | 2024-05-11 15:45 | NUR ---
END OF SHIFT/TRANSFER NOTE: PT ALERT T/O SHIFT, ORIENTED X2-3. ABLE TO COMMUNICATE NEEDS & ANSWER SOME QUESTIONS APPROPRIATELY. PT RESPONDS TO SOME QUESTIONS BUT NOT OTHERS WHEN PROMPTED. MOOD LABILE. PT COOPERATIVE & CALM THIS AM, MORE AGITATED THIS AFTERNOON; YELLING OUT, TELLS THIS RN HE IS FRUSTRATED ABOUT "THE SITUATION". WHEN ASKED TO EXPAND ON THIS, PT STATES "YOU DON'T UNDERSTAND" AND "JUST FORGET IT" BUT CONTINUES TO YELL OUT. PT ASSISTED W/ REPOSITIONING FOR COMFORT & EDUCATED ON USE OF CALL BUTTON. VSS. HR 120'S THIS AM, DOWN TO 80'S THIS AFTERNOON. SINUS RHYTHM ON TELE. SBP 130-140'S, DENIES CHEST PAIN/PRESSURE. SPO2 >90% ON RA-2L VIA NC. RESPIRATIONS EVEN & UNLABORED. MALE PW IN PLACE DRAINING YELLOW URINE TO SUCTION. NO BM'S. Q2HR REPOSITIONING IN PLACE DUE TO COCCYX SKIN BREAKDOWN. HEEL PROTECTORS IN PLACE DUE TO EXISTING WOUNDS. VERY MINIMAL PO INTAKE. PT TOLERATING SMALL AMOUNTS OF WATER/JUICE BUT HAS DECLINED ALL FOOD TODAY. NS INFUSING AT 75ML/HR PER EMAR. PT TRANSFERRED TO ROOM 349 VIA BED AT APPROX 1540. ALL PERSONAL BELONGINGS TRANSFERRED W/ PT. NO ACUTE DISTRESS OR NEEDS NOTED AT TIME OF TRANSFER. REPORT TO SALOME YEBOAH TO ASSUME CARE OF PT.
--- NOTE | 2024-05-11 16:17 | NUR ---
SHIFT SUMMARY/TRANSFER 1535-PT ARRIVED TO ROOM 349, AOX2/3, SEMI COOPERATIVE WITH CARE. SKIN CHECKED BY THIS RN AND AGRCÍA YEBOAH, PRESSURE WOUND ON COCCYX, MINOR OPENING AND BLANCHABLE, DID NOT SEE ANY INJURY ON LEFT HEEL, RIGHT HEEL STAGE 2 PRESSURE ULCER. MEPILEX ON BOTH HEELS. ON RA 98%. INRODUCED TO ROOM AND CALL LIGHT. PURE WICK IN PLACE AND CONNECTED TO SUCTION. BED IN LOWEST POSITION, CALL LIGHT WITHIN REACH.
[2024-05-11] MEDS ORDERED: Acetaminophen 325 MG TABLET PO PRN (21:55)
[2024-05-11] MEDS ORDERED: Melatonin 5 MG Tablet PO SCH (21:55)
[2024-05-12 04:13] VITALS: BP 116/71
[2024-05-12] MEDS ORDERED: Ondansetron HCl 2 MG / ML 2ML Vial IV PRN (04:25)
[2024-05-12 05:51] LABS: BASOPHILS ABSOLUTE AUTO 0.04 K/mm3 (0.00-0.23); BASOPHILS PERCENT AUTO 0 % (0-2); EOSINOPHILS ABSOLUTE AUTO 0.17 K/mm3 (0.00-0.68); EOSINOPHILS PERCENT AUTO 2 % (0-6); Hematocrit 28.9 % (37.0-53.0); Hemoglobin 8.6 g/dL (13.5-17.5); IMMATURE GRAN ABSOLUTE AUTO 0.13 K/mm3 (0.00-0.10); IMMATURE GRAN PERCENT AUTO 1 % (0-1); LYMPHOCYTES ABSOLUTE AUTO 0.65 K/mm3 (0.84-5.20); LYMPHOCYTES PERCENT AUTO 6 % (21-46); MONOCYTES ABSOLUTE AUTO 0.58 K/mm3 (0.16-1.47); MONOCYTES PERCENT AUTO 5 % (4-13); Mean Corpuscular HGB 28.1 pg (26.0-34.0); Mean Corpuscular HGB Conc 29.8 g/dL (31.5-36.5); Mean Corpuscular Volume 94 fL (80-100); Mean Platelet Volume 9.5 fL (9.1-12.4); NEUTROPHILS ABSOLUTE AUTO 10.12 K/mm3 (1.96-9.15); NEUTROPHILS PERCENT AUTO 87 % (41-73); Platelet Count 162 K/mm3 (150-400); RDW Coefficient Variation 15.5 % (11.7-14.2); RDW Standard Deviation 53.2 fL (35.1-46.3); Red Blood Cell Count 3.06 M/mm3 (4.30-5.90); White Blood Cell Count 11.69 K/mm3 (4.00-11.30)
[2024-05-12 06:11] LABS: Bun/Creatinine Ratio 13.2 (12.0-20.0); Calcium, Blood 8.7 mg/dL (8.5-10.1); Creatinine, Blood 2.28 mg/dL (0.60-1.20); Potassium, Blood 4.7 mmol/L (3.5-5.5)
[2024-05-12 07:24] VITALS: BP 160/88
--- NOTE | 2024-05-12 08:29 | NUR ---
SHIFT SUMMARY PT IS A&O TO SELF AND PLACE, CONFUSED. VSS ON 2L NC. PT WAS FOUND TO NOT HAVE HIS OXYGEN ON, O2 SATS ON RA WERE 83%. C/O PAIN IN HIS ABD, CALLED MD AND GOT TYLENOL ORDERED. PT HAD 2 EMESIS, WAS FOUND COVERED IN IT. PT DOES NOT USE HIS CALL LIGHT, INSTEAD FREQUENTLY HOLLERS OUT. WICKING SYSTEM DRAINING ADEQUATE AMOUNTS OF CLEAR, YELLOW URINE. NO BM THIS SHIFT. PT NEEDS BOWEL CARE ORDERED. REPOSITIONED TOLERATED. BED IN LOWEST POSITION, CALL LIGHT WITHIN REACH. FREQUENT ROUNDING COMPLETE.
[2024-05-12] MEDS ORDERED: CloNIDine HCL 0.3 MG Patch TOP SCH (09:00)
[2024-05-12 13:49] LABS: Source, Urine Foley catheter
[2024-05-12 14:06] LABS: Appearance, Urine Clear (Clear); Bilirubin, Urine Neg (Neg); Blood, Urine Neg (Neg); Color, Urine Yellow (P-Yellow); Glucose Qualitative, Urine 4+ (Neg); Ketones, Urine Neg (Neg); Leukocyte Esterase, Urine Neg (Neg); Nitrite, Urine Neg (Neg); Protein, Urine 3+ (Neg); Specific Gravity, Urine 1.015 (1.003-1.022); Urobilinogen, Urine NORM (Normal)
[2024-05-12 14:20] LABS: Red Blood Cells, Urine 0-2 /hpf (0-2)
[2024-05-12 14:21] LABS: Bacteria Few /hpf; Squamous Epithelial Cells Rare /hpf (Few)
[2024-05-12 15:35] VITALS: BP 148/83
[2024-05-12] MEDS ORDERED: Darbepoetin Alfa In Albumn Sol 40 MCG/0.4 ML SC SCH (16:00)
[2024-05-12 17:15] LABS: Albumin, Blood 1.8 g/dL (3.4-5.0); Anion Gap 10 mmol/L (3-11); Blood Urea Nitrogen 29 mg/dL (8-24); Bun/Creatinine Ratio 13.5 (12.0-20.0); CO2, Blood 23 mmol/L (21-32); Chloride, Blood 119 mmol/L (98-108); Creatinine, Blood 2.15 mg/dL (0.60-1.20); Glomerular Filtration Rate 35 (60-); Glucose, Blood 158 mg/dL (70-99); Phosphorus, Blood 4.2 mg/dL (2.5-4.9); Potassium, Blood 4.7 mmol/L (3.5-5.5); Sodium, Blood 147 mmol/L (136-145)
--- NOTE | 2024-05-12 18:42 | NUR ---
SHIFT SUMMARY PT CONT LEVEL OF CARE. PT IS A&O TO SELF AND PLACE. PT NOTED TO HAVE RETENTION THIS SHIFT. PT WAS BLADDER SCANNED AND NOTED TO HAVE 875ML IN BLADDER. DR RITTER WAS NOTIFIED AND GAVE AN ORDER TO PLACE A BENAVIDES. BENAVIDES PLACED AND INITAL OUT NOTED OF 1000ML OR YELLOW URINE. DR RITTER ALSO ORDER NEPHOROLY CONSULT REED WAS CONSULTED. PT NOTED TO REFUSE MEALS THIS SHIFT. PT ALSO NOTED TO SLEEP MAJORITY OF THIS SHIFT.
[2024-05-12] MEDS ORDERED: Dextrose 5% 1,000 ML IV SCH (21:20)
[2024-05-13 02:51] VITALS: BP 145/61
--- NOTE | 2024-05-13 03:18 | NUR ---
PACK ROOM OPERATOR SUMMARY VSS. A/O X 1-2 (SELF AND OCCASIONAL PLACE). INTERMITTENT CONFUSION, AND OCCASIONAL REFUSAL OF TREATMENT/MEDS. AM NURSE REPORTED INCREASED AGITATION BUT NONE NOTED OF THIS WRITING FOR THIS SHIFT. BENAVIDES DRAINING. REFUSING TO EAT, ORDERED DEXTROSE 5% IV AT 50 ML/HR. HAS BEEN RESTING QUIETLY WITH OCCASIONAL INTERUPTION. FLOOR POLISHER EQUAL, BUT VOICED UNABLE TO MOVE FEET AND VOICED "NEUROPATHY" IN BLE. CONTACT ISOLATION CONTINUES. CALL LIGHT IN REACH, REPOSITIONED WHEN PT ALLOWS IT AND BED IN LOW POSITION FOR SAFETY. WILL CONTINUE TO MONITOR
[2024-05-13 05:48] LABS: Hematocrit 26.3 % (37.0-53.0); Hemoglobin 7.7 g/dL (13.5-17.5)
[2024-05-13 06:13] LABS: Albumin, Blood 1.7 g/dL (3.4-5.0); Anion Gap 12 mmol/L (3-11); Blood Urea Nitrogen 31 mg/dL (8-24); Bun/Creatinine Ratio 14.4 (12.0-20.0); CO2, Blood 23 mmol/L (21-32); Calcium, Blood 8.8 mg/dL (8.5-10.1); Chloride, Blood 119 mmol/L (98-108); Creatinine, Blood 2.16 mg/dL (0.60-1.20); Glomerular Filtration Rate 34 (60-); Glucose, Blood 142 mg/dL (70-99); Magnesium, Blood 2.2 mg/dL (1.6-2.4); Phosphorus, Blood 3.7 mg/dL (2.5-4.9); Potassium, Blood 4.5 mmol/L (3.5-5.5); Sodium, Blood 149 mmol/L (136-145)
[2024-05-13] MEDS ORDERED: Dextrose 5% 1,000 ML IV SCH (06:50)
[2024-05-13 07:37] VITALS: BP 150/80
[2024-05-13] MEDS ORDERED: NS 250 ML IV PRN (09:45)
[2024-05-13] MEDS ORDERED: BASAGLAR K100 UNIT/1 SC (10:30)
[2024-05-13] MEDS ORDERED: HUMALOG TE100 UNIT/1 SC ×2 (10:30)
[2024-05-13 16:24] VITALS: BP 131/79
--- NOTE | 2024-05-13 17:53 | NUR ---
SHIFT SUMMARY PT A&OX3, VSS, BEDRIDDEN AT BASE, MINIMAL PO INTAKE, VOIDING, AND DENIED PAIN. PT TITRATED OFF OF O2 THIS SHIFT AND IS ON RA SATS 92-96%. MEPILEX CHANGED ON COCCYX. D5 CONT TO INFUSE PER EMAR. THIS NURSE SPOKE TO PT ABOUT MINIMAL PO INTAKE. PT DENIES N/V, BUT STATED THAT "THE FOOD DOESN'T TASTE GOOD HERE." NO OTHER ACUTE CHANGES THIS SHIFT. CALL LIGHT WITHIN REACH AND PT ABLE TO MAKE NEEDS KNOWN W/ CALL LIGHT, BUT OCCASSIONALLY CALLS OUT AND REQUIRES REORIENTATION TO THE CALL LIGHT.
[2024-05-13 19:18] VITALS: BP 133/77
[2024-05-13] MEDS ORDERED: Arginine/Glutamine/Calcium Hmb 1 Packet PO SCH (21:00)
--- NOTE | 2024-05-14 05:20 | NUR ---
RESEARCH PROGRAM INTERNSHIP SUMMARY VSS. ALERT AND ORIENTED TO SELF AND SITUATION. AFFECT AND BEHAVIOR LABILE. EASILY AGITATED. REPOSITIONED INTERMITTENTLY HE WOULD ALLOW STAFF TO DO SO. HOB ELEVATED AND O2 AT 1L/MIN PER NC HE DESATED ONCE. CONT PULSE OX IN USE. IVF OF DEXTROSE 5% INFUSING. ACCUCHECKS AND INSULIN COVERAGE MAINTAINED - SEE DOC FLOW SHEETS. HAS BEEN RESTING QUIETLY WITH OCCASIONAL INTERRUPTIONS. RAILS UP X 2, CALL LIGHT IN REACH AND BED IN LOW POSITION FOR SAFETY. ISOLATION PRECAUTIONS MAINTAINED. WILL CONT TO MONITOR
[2024-05-14 06:08] VITALS: BP 154/83
[2024-05-14 06:23] LABS: Hematocrit 24.8 % (37.0-53.0); Hemoglobin 7.5 g/dL (13.5-17.5)
[2024-05-14 06:58] LABS: Albumin, Blood 1.6 g/dL (3.4-5.0); Anion Gap 9 mmol/L (3-11); Blood Urea Nitrogen 26 mg/dL (8-24); Bun/Creatinine Ratio 12.8 (12.0-20.0); CO2, Blood 24 mmol/L (21-32); Calcium, Blood 8.4 mg/dL (8.5-10.1); Chloride, Blood 114 mmol/L (98-108); Creatinine, Blood 2.03 mg/dL (0.60-1.20); Glomerular Filtration Rate 37 (60-); Glucose, Blood 182 mg/dL (70-99); Phosphorus, Blood 3.2 mg/dL (2.5-4.9); Potassium, Blood 4.2 mmol/L (3.5-5.5); Sodium, Blood 143 mmol/L (136-145)
[2024-05-14] MEDS ORDERED: Dextrose 5% 1,000 ML IV SCH (07:15)
[2024-05-14 07:42] VITALS: BP 145/76
[2024-05-14] MEDS ORDERED: Albuterol 2.5 MG/3 ML VIAL INH PRN (12:10)
[2024-05-14] MEDS ORDERED: CEFD300 PO (14:23)
[2024-05-14] MEDS ORDERED: JUVEN PACKET1 EAC3 PO (14:23)
[2024-05-14 14:35] LABS: SARS-Cov-2 (COVID-19) PCR, MMC NEGATIVE (NEGATIVE)
--- NOTE | 2024-05-14 17:16 | NUR ---
DISCHARGE NOTE- PT WAS GIVEN A FULL BED BATH AND HIS WOUND DRESSINGS WERE CHANGED. PT WAS ANGRY WITH STAFF USING AGRESSIVE LANGUAGE WITH ALL INTERACTIONS T/O THE DAY. BENAVIDES CATH WAS DC'D PRIOR TO DISHCARGE, BLADDER SCAN AT THE TIME OF DISCHARGE SHOWED 168. NOTIFIED, NO BENAVIDES PLACED PRIOR TO DC BACK TO [facility]. IV DC'D BY THE ELEVATOR REPAIR MECHANIC AT THE TIME OF THE BED BATH. PT WAS TAKEN VIA WC TRANSPORT BACK TO [facility]. [facility] LIFT WAS REQUIRED TO TRANSFER THE PT FROM THE BED TO THE CHAIR. PT YELLED CURSE WORDS AT STAFF THEY PREVENTED HIS LEGS FROM HITTING THE LIFT HE WAS POSITIONED TO BE PLACED IN THE CHAIR. ATTEMPTED TO AIR AND HYDRONIC BALANCING TECHNICIAN THE PT TO STOP AND TAKE A BREATH. HE BECAME MORE AGGITATED AND YELLED HE WANTED TO SPEAK TO MANAGEMENT. ONCE HE WAS IN THE CHAIR STAFF AND THE TRANSPORT OFFERED TO CALL MANAGEMENT FOR HIM. THE PT DECLINED SAYING "OH, I WILL IN MY OWN TIME." PT WAS PROVIDED WARM BLANKETS ON HIS WAY OUT. NO S&S OF DISTRESS NOTED AT THE TIME OF DISCHARGE.
== END 2024-05-14 16:54 | DRG 871 ==
LOC: ER 05:18 → PCU 08:17 → MEDS 08:17 → PCU 11:02 → MEDS 05-11 15:37
PROVIDERS: Internal Medicine; Internal Medicine Critical Care Medicine; Internal Medicine Nephrology; Student in an Organized Health Care Education/Training Program; ADMIT Internal Medicine
PROC: 0T9B70Z Drainage of Bladder with Drainage Device, Via Natural or Artificial Opening (ICD-10-PCS; principal; 2024-05-10)
PROC: 3E03329 Introduction of Other Anti-infective into Peripheral Vein, Percutaneous Approach (ICD-10-PCS; 2024-05-10)
PROC: 5A09357 Assistance with Respiratory Ventilation, Less than 24 Consecutive Hours, Continuous Positive Airway Pressure (ICD-10-PCS; 2024-05-10)
PROC: 5A0935A Assistance with Respiratory Ventilation, Less than 24 Consecutive Hours, High Flow/Velocity Cannula (ICD-10-PCS; 2024-05-10)
DX: A41.9 Sepsis, unspecified organism (principal); G93.41 Metabolic encephalopathy; J18.9 Pneumonia, unspecified organism; J96.01 Acute respiratory failure with hypoxia; E87.0 Hyperosmolality and hypernatremia; Z66 Do not resuscitate; N17.9 Acute kidney failure, unspecified; I13.0 Hypertensive heart and chronic kidney disease with heart failure and stage 1 through stage 4 chronic kidney disease, or unspecified chronic kidney disease; I50.32 Chronic diastolic (congestive) heart failure; N13.8 Other obstructive and reflux uropathy; R65.20 Severe sepsis without septic shock; E11.42 Type 2 diabetes mellitus with diabetic polyneuropathy; E11.22 Type 2 diabetes mellitus with diabetic chronic kidney disease; N18.32 Chronic kidney disease, stage 3b; D50.9 Iron deficiency anemia, unspecified; E78.5 Hyperlipidemia, unspecified; K21.9 Gastro-esophageal reflux disease without esophagitis; I25.10 Atherosclerotic heart disease of native coronary artery without angina pectoris; E66.9 Obesity, unspecified; Z68.33 Body mass index [BMI] 33.0-33.9, adult; D63.1 Anemia in chronic kidney disease; E88.09 Other disorders of plasma-protein metabolism, not elsewhere classified; E87.70 Fluid overload, unspecified; N40.1 Benign prostatic hyperplasia with lower urinary tract symptoms; R33.8 Other retention of urine; F41.8 Other specified anxiety disorders; E11.319 Type 2 diabetes mellitus with unspecified diabetic retinopathy without macular edema; G25.0 Essential tremor; Z85.3 Personal history of malignant neoplasm of breast; Z90.49 Acquired absence of other specified parts of digestive tract; Z90.13 Acquired absence of bilateral breasts and nipples; Z89.422 Acquired absence of other left toe(s); Z95.5 Presence of coronary angioplasty implant and graft; Z98.890 Other specified postprocedural states; Z79.82 Long term (current) use of aspirin; Z79.84 Long term (current) use of oral hypoglycemic drugs; Z79.4 Long term (current) use of insulin; Z79.899 Other long term (current) drug therapy; Z88.8 Allergy status to other drugs, medicaments and biological substances
CPT/HCPCS: 0202U; 0241U; 36415; 51701; 70450; 71045; 76770; 80048; 80053; 80069; 81001; 82570; 82803; 82947; 83605; 83735; 83880; 84145; 84295; 84300; 84540; 85014; 85018; 85025; 87040; 92610; 93005; 93010; 93970; 94640; 94660; 94664; 94760; 94762; 96365-59; 96375-59; 99285-25; A9270; J0456; J0696; J0881; J1644; J1815; J2405; J7030; J7050; J7070; U0002